=== PATIENT | male | born 1965 | race Caucasian/White ===

== ENCOUNTER → 2017-09-15 08:12 | Outpatient (CLI) | payer OTHER, SELFPAY ==
[2017-09-15 12:36] LABS: Absolute Lymphocyte Count 0.81 X10^3/ul (0.83-4.51); Absolute Neutrophil Count 2.4 X10^3/uL (2.0-7.7); Basophil# 0.04 X10^3/uL; Eosinophil# 0.08 X10^3/uL; Eosinophils% 2.1 % (0-5); Hematocrit 44.8 % (40-54); Hemoglobin 15.6 g/dl (13.0-16.5); Lymphocyte # 0.81 X10^3/ul (4.0); Lymphocyte % 20.8 % (19-41); Mean Corp Hgb Conc 34.8 g/gl (32-36); Mean Corpuscular Hgb 31.4 pg (27.0-32.0); Mean Corpuscular Volume 90.1 fL (80-94); Mean Platelet Vol. 10.7 fl (6.2-12.0); Monocyte% 15.4 % (0-10); Neutrophil # 2.36 X10^3/uL (2.7-7.7); Neutrophil % 60.7 % (47-70); Platelet Count 276 K/mm3 (150-450); RBC Distribution Width CV 12.8 % (11.6-14.6); RBC Distribution Width SD 41.7 fl (35.1-43.9); Red Blood Count 4.97 M/mm3 (4.6-6.2); White Blood Count 3.9 K/mm3 (4.4-11.0)
[2017-09-15 12:37] LABS: POSITIVE COUNT NO; POSITIVE DIFFERENTIAL NO; POSITIVE MORPHOLOGY NO
[2017-09-15 13:09] LABS: ALB/GLOB Ratio 0.9 RATIO (0.9-2.4); AST(SGOT) 30 U/L (15-37); Alanine Aminotransfer ALT/SGPT 51 U/L (16-61); Albumin, Serum 3.8 g/dL (3.2-5.0); Alkaline Phosphatase 144 U/L (45-117); Anion Gap 5 (5-15); BUN 17 mg/dL (7-18); BUN/Creat Ratio 18.6 RATIO (10-20); Calcium,Total 8.4 mg/dL (8.5-10.1); Chloride 105 mmol/L (98-107); Creatinine, Serum 0.91 mg/dL (0.70-1.30); EST Glomerular Filtration Rate 93 mL/min (>60); Est Glom Filt Rate - Afr Amer 112 mL/min (>60); Globulin 4.2 g/dL (2.2-4.2); Glucose 88 mg/dL (74-106); Potassium 4.1 mmol/L (3.5-5.1); Sodium Level 140 mmol/L (136-145); Thyroid Stim Hormone (TSH) 2.57 uIU/mL (0.358-3.74)
== END ==
PROVIDERS: Family Provider Family Medicine; PCP Family Medicine; Visit Provider Family Medicine
DX: E78.5 Hyperlipidemia, unspecified (principal); I10 Essential (primary) hypertension
CPT/HCPCS: 36415; 80053; 84443; 85025

== ENCOUNTER 2018-03-15 13:36 | Emergency (ER) | payer OTHER, SELFPAY ==
[2018-03-15 13:37] VITALS: BP 134/91; PULSE 94; RESP 18; TEMP 36; O2SAT 98; BMI 33.5
[2018-03-15 13:56] VITALS: O2SAT 94
--- NOTE | 2018-03-15 13:56 | EKG12_ITS ---
Test Reason : REPEAT Blood Pressure : / mmHG Vent. Rate : 070 BPM Atrial Rate : 070 BPM P-R Int : 148 ms QRS Dur : 142 ms QT Int : 414 ms P-R-T Axes : 049 056 005 degrees QTc Int : 447 ms Normal sinus rhythm Right bundle branch block Abnormal ECG Confirmed by KY JOAQUIN, REECE ([id number]), offline editor LUIS WOODARD ([id number]) on 03/21/2018 11:31:39 AM Referred By: NARDA Confirmed By:REECE MCPHERSON MD
--- NOTE | 2018-03-15 13:58 | ED.VISSUMM ---
- ER Visit Summary Date of Service: 03/15/18 Chief Complaint: [] Chest pain today while at work History of Present Illness: The patient is a 52 M [] he reports that while at work he began having an episode of chest pressure that lasted for about 10-15 minutes and resolve spontaneously has had this type of pain before he is been admitted for and had a stress test a few years it was negative. He has no known history of heart disease MD PE or DVT but does have history of right bundle branch block. 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, he went to work feeling fine he feels back to baseline now with no complaints Have a history of hyperlipidemia and hypertension does not smoke also has family history Physical Examination: [] Blood pressure was 130/80 general, no distress resting comfortably HEENT is generally unremarkable The neck is supple no adenopathy Cardiovascular, regular rate and rhythm Lungs, clear bilateral Abdomen, soft nontender Extremities, no clubbing cyanosis or edema Neurologic, awake alert answering questions appropriately moving all 4 extremities Test Results: [] Emergency Department Course and Treatment: [] Patient's EKG does show the right bundle there is no acute injury pattern appreciated, I did note a nuclear cardiac stress test in 2016 that showed no signs of ischemia given his complaints and all the above screening labs will be obtained The patient's laboratory studies and chest x-ray were generally unremarkable see those reports on reevaluation remains asymptomatic resting comforting the bed we discussed all the test with him we discussed further management options which would include admission versus discharge we discussed the concept of occult cardiac disease it could be lethal. The patient reported and were verbalized understanding of the above but indicate he had chest pain multiple times and they would prefer outpatient management and declined admission. They do agree to stay in the emergency department for repeat troponin and EKG if these are negative the be discharged and be referred back to primary care physician and they actually have an appointment for tomorrow and have also given them referral to cardiology, in addition he is currently taking one baby aspirin a day he will take 2 baby aspirins a day he does agree to return if symptoms change or intensified anyway I have asked the evening physicians to check the repeat troponin with the plan will be as above Treatment Plan: [] Disposition: [] Discharge patient declined admission Impression: [] Chest pain etiology unclear This note was generated with [employer] dictation software. It may contain incorrect words, spelling, and punctuation that were not noted in review of the chart prior to signing ED Disposition - Plan for ED Patient: Chief Complaint: Chest Pain Referrals: Darin Sharma MD [Primary Care Provider] -
--- NOTE | 2018-03-15 14:04 | RAD_ITS ---
STUDY: X-RAY CHEST REASON FOR EXAM: Male, 52 years old. Chest pain. TECHNIQUE: Single AP portable view of the chest. COMPARISON: Comparison is made with prior study dated January 05, 2016. FINDINGS: EKG electrodes are seen. The lungs are clear and expanded. There is no demonstrated pleural abnormality. Normal size heart. Normal mediastinum and kemar. Normal visualized pulmonary arteries. There is atherosclerotic tortuosity of the aortic arch and descending thoracic aorta. Normal visualized thoracic spine. Normal visualized ribs, clavicles, and shoulders. There is no demonstrated abnormality of the visualized soft tissue structures of the upper abdomen. RAD/Chest 1 View (Portable) IMPRESSION: No acute abnormality is seen. Electronically Signed: Castillo Perales MD at 14:44 EST Tel [phone], Service support ,
[2018-03-15] MEDS: Aspirin 81 MG TAB.CHEW 324 MG PO (14:07)
[2018-03-15 14:25] LABS: Absolute Lymphocyte Count 0.99 X10^3/ul (0.83-4.51); Absolute Neutrophil Count 2.6 X10^3/uL (2.0-7.7); Basophil# 0.02 X10^3/uL; Basophil% 0.5 % (0-1); Eosinophil# 0.07 X10^3/uL; Eosinophils% 1.7 % (0-5); Hematocrit 43.7 % (40-54); Hemoglobin 15.1 g/dl (13.0-16.5); Lymphocyte # 0.99 X10^3/ul (4.0); Lymphocyte % 23.6 % (19-41); Mean Corp Hgb Conc 34.6 g/gl (32-36); Mean Corpuscular Volume 89.7 fL (80-94); Mean Platelet Vol. 9.7 fl (6.2-12.0); Monocyte# 0.52 X10^3/uL; Monocyte% 12.4 % (0-10); Neutrophil % 61.8 % (47-70); Platelet Count 256 K/mm3 (150-450); RBC Distribution Width CV 12.4 % (11.6-14.6); RBC Distribution Width SD 40.7 fl (35.1-43.9); Red Blood Count 4.87 M/mm3 (4.6-6.2); White Blood Count 4.2 K/mm3 (4.4-11.0)
[2018-03-15 14:26] LABS: POSITIVE COUNT NO; POSITIVE DIFFERENTIAL NO; POSITIVE MORPHOLOGY NO
[2018-03-15 14:42] LABS: Anion Gap 8 (5-15); BUN 15 mg/dL (7-18); BUN/Creat Ratio 17.9 RATIO (10-20); Calcium,Total 8.2 mg/dL (8.5-10.1); Chloride 108 mmol/L (98-107); Creatinine, Serum 0.84 mg/dL (0.70-1.30); EST Glomerular Filtration Rate 102 mL/min (>60); Est Glom Filt Rate - Afr Amer 123 mL/min (>60); Glucose 141 mg/dL (74-106); Potassium 3.7 mmol/L (3.5-5.1); Sodium Level 141 mmol/L (136-145)
--- NOTE | 2018-03-15 15:16 | EKG12_ITS ---
Test Reason : CP Blood Pressure : / mmHG Vent. Rate : 085 BPM Atrial Rate : 085 BPM P-R Int : 148 ms QRS Dur : 134 ms QT Int : 394 ms P-R-T Axes : 070 088 010 degrees QTc Int : 468 ms Normal sinus rhythm Right bundle branch block Abnormal ECG Confirmed by KY JOAQUIN, REECE ([id number]), map editor LUIS WOODARD ([id number]) on 03/21/2018 11:31:54 AM Referred By: TONJA Confirmed By:REECE MCPHERSON MD
--- NOTE | 2018-03-15 15:18 | ED.DEP ---
ED Disposition - Plan for ED Patient: Chief Complaint: Chest Pain Instructions: ED Chest Pain Atypical Unkn Cause Referrals: Darin Sharma MD [Primary Care Provider] - Additional Instructions: Take 2 baby aspirin a day, see your outpatient provider tomorrow, follow-up with cardiology
[2018-03-15 16:52] VITALS: BP 151/80; PULSE 82; RESP 23; O2SAT 93
== END 2018-03-15 16:56 | disposition home or self-care (01) ==
LOC: ED 14:21
PROVIDERS: Emergency Provider Emergency Medicine; Family Provider Family Medicine; PCP Family Medicine
DX: R07.9 Chest pain, unspecified (principal); I45.10 Unspecified right bundle-branch block; I10 Essential (primary) hypertension; E78.5 Hyperlipidemia, unspecified; Z79.82 Long term (current) use of aspirin; Z79.899 Other long term (current) drug therapy; Z82.49 Family history of ischemic heart disease and other diseases of the circulatory system
CPT/HCPCS: 36415; 71045; 80048; 84484; 85025; 93005; 99285; A4216

== ENCOUNTER → 2018-03-26 09:23 | Outpatient (CLI) | payer OTHER, SELFPAY ==
[2018-03-15 13:37] VITALS: BMI 33.5
--- NOTE | 2018-03-26 09:29 | US_ITS ---
STUDY: ABDOMINAL ULTRASOUND - RIGHT UPPER QUADRANT REASON FOR VISIT: Male, 52 years old. Chest pain with meals. TECHNIQUE: Ultrasound evaluation of the right upper quadrant was performed with real-time and static burnett-scale imaging. TECHNICAL QUALITY: Examination limited by bowel gas. COMPARISON: None. FINDINGS: Liver: The liver measures 16.9 cm. There is increased echogenicity consistent with fatty infiltration. The bile ducts are within normal limits. There is hepatic color flow. The direction of portal flow is hepatopetal. There is no demonstrated mass lesion. Gallbladder: Normal distended gallbladder. The gallbladder wall measures 3 mm. There is a negative sonographic Pinto's sign. There is no pericholecystic fluid. There is biliary sludge dependent within the gallbladder. Common Bile Duct (C.B.D.): The common bile duct measures 4 mm. Pancreas: The pancreas is not visualized due to bowel gas. Right Kidney: Normal size of the right kidney. The right kidney measures 12.4 cm. Normal renal cortex. The right cortex measures 2.2 cm. There is no demonstrated renal mass or cyst. There is no right hydronephrosis. US/Abdomen Limited IMPRESSION: 1. Minimal gallbladder sludge without secondary evidence of acute cholecystitis. 2. Fatty infiltration of the liver. Electronically Signed: Nikolay Eduardo DO at 23:56 EST Tel [phone], Service support ,
== END ==
PROVIDERS: Family Provider Family Medicine; PCP Family Medicine; Referring Provider Family Medicine; Visit Provider Family Medicine
DX: R07.9 Chest pain, unspecified (principal); K76.0 Fatty (change of) liver, not elsewhere classified
CPT/HCPCS: 76705

== ENCOUNTER → 2019-10-23 08:12 | Outpatient (CLI) | payer OTHER, SELFPAY ==
[2019-10-21 16:53] VITALS: BMI 33.5
[2019-10-23 10:27] LABS: Absolute Lymphocyte Count 0.81 X10^3/uL (0.83-4.51); Absolute Neutrophil Count 2.3 X10^3/uL (2.0-7.7); Basophil# 0.04 X10^3/uL; Basophil% 1.1 % (0-1); Eosinophils% 2.6 % (0-5); Hematocrit 46.2 % (40-54); Hemoglobin 15.4 g/dL (13.0-16.5); Lymphocyte # 0.81 X10^3/ul (4.0); Lymphocyte % 21.4 % (19-41); Mean Corp Hgb Conc 33.3 g/dL (32-36); Mean Corpuscular Hgb 30.6 pg (27.0-32.0); Mean Corpuscular Volume 91.7 fL (80-94); Mean Platelet Vol. 9.8 fl (6.2-12.0); Monocyte# 0.49 X10^3/uL; NRBC Flagged by Analyzer 0 % (0-5); Neutrophil # 2.33 X10^3/uL (2.7-7.7); Neutrophil % 61.6 % (47-70); Platelet Count 278 K/mm3 (150-450); RBC Distribution Width CV 11.9 % (11.6-14.6); RBC Distribution Width SD 40.3 fl (35.1-43.9); Red Blood Count 5.04 M/mm3 (4.6-6.2); White Blood Count 3.8 K/mm3 (4.4-11.0)
[2019-10-23 10:55] LABS: ALB/GLOB Ratio 0.8 RATIO (0.9-2.4); AST(SGOT) 25 U/L (15-37); Alanine Aminotransfer ALT/SGPT 44 U/L (16-61); Albumin, Serum 3.7 g/dL (3.2-5.0); Alkaline Phosphatase 154 U/L (45-117); Anion Gap 3 (5-15); BUN 16 mg/dL (7-18); BUN/Creat Ratio 20.1 RATIO (10-20); Calcium,Total 8.5 mg/dL (8.5-10.1); Chloride 107 mmol/L (98-107); Cholesterol 109 mg/dL (200); EST Glomerular Filtration Rate 107 mL/min (>60); Est Glom Filt Rate - Afr Amer 130 mL/min (>60); Globulin 4.4 g/dL (2.2-4.2); Glucose 94 mg/dL (74-106); High Density Lipoprotein 24 mg/dL; Potassium 3.9 mmol/L (3.5-5.1); Protein, Total 8.1 g/dL (6.4-8.2); Sodium Level 138 mmol/L (136-145); Thyroid Stim Hormone (TSH) 3.73 uIU/mL (0.358-3.74); Triglycerides 84 mg/dL; Very Low Density Lipoprotein 17 mg/dL (5-40)
== END ==
PROVIDERS: PCP Family Medicine; Referring Provider Family Medicine; Visit Provider Family Medicine
DX: I10 Essential (primary) hypertension (principal); F32.1 Major depressive disorder, single episode, moderate; E78.5 Hyperlipidemia, unspecified; K76.0 Fatty (change of) liver, not elsewhere classified
CPT/HCPCS: 36415; 80053; 80061; 84443; 85025

== ENCOUNTER → 2019-12-30 | Outpatient (CLI) | payer OTHER, SELFPAY ==
[2019-12-12 10:50] VITALS: BMI 33.5
== END | disposition home or self-care (01) ==
LOC: LABSPEC 17:22
PROVIDERS: PCP Family Medicine; Referring Provider Family Medicine; Visit Provider Family Medicine
DX: Z20.828 Contact with and (suspected) exposure to other viral communicable diseases (principal)
CPT/HCPCS: 87635; 94799; U0003

== ENCOUNTER → 2020-12-07 13:02 | Outpatient (CLI) | payer OTHER, SELFPAY ==
[2020-11-20 13:15] VITALS: BMI 33.5
--- NOTE | 2020-12-07 13:03 | MRI_ITS ---
History: pain neck , left arm Technique: T1 and T2 MR imaging of the cervical spine performed without contrast enhancement in axial and sagittal planes. Comparison: Cervical spine radiographs November 05, 2020 Findings: Disc space narrowing with Modic type I endplate changes present at C6-7 level. Alignment of the cervical vertebral bodies is normal. Cervical cord is normal. Soft tissues of the neck are normal. C2-3: No disc protrusion. Normal caliber spinal canal and neural foramina. C3-4: No disc bulging. Normal caliber spinal canal. Mild narrowing of the left neural foramen related to uncinate joint hypertrophy. C4-5: Mild left central disc protrusion causing minimal impression on the thecal sac. Mild to moderate narrowing of the left neural foramen related to uncinate joint hypertrophy. C5-6: Left posterolateral disc protrusion causing narrowing of the left lateral recess and adjacent foramen no significant spinal stenosis. C6-7: Mild disc bulging without significant impression on the thecal sac. Moderate narrowing of the neural foramina related to uncinate joint hypertrophy. C7-T1: No disc protrusion. Normal caliber spinal canal and neural foramina. MRI/Spine Cervical (Routine) IMPRESSION: Neural foraminal narrowing on the left at C3-4, C4-5, C5-6 and C6-7. Prominent narrowing of the left C5-6 lateral recess secondary to left posterolateral disc protrusion. Prominent disc degeneration at the C6-7 level associated with Modic type I endplate changes. at 1705 Reported and signed by: Damien Burnett MD Electronically Signed: Damien Burnett MD at 17:04 EDT Tel , Service support ,
== END ==
PROVIDERS: PCP Family Medicine; Referring Provider Orthopaedic Surgery; Visit Provider Orthopaedic Surgery
DX: M50.20 Other cervical disc displacement, unspecified cervical region (principal); M50.323 Other cervical disc degeneration at C6-C7 level
CPT/HCPCS: 72141

== ENCOUNTER → 2020-12-30 08:53 | Outpatient (CLI) | payer OTHER, SELFPAY ==
[2020-12-09 14:54] VITALS: BMI 33.5
[2020-12-30 14:50] LABS: Absolute Lymphocyte Count 0.86 X10^3/uL (0.83-4.51); Absolute Neutrophil Count 2.9 X10^3/uL (2.0-7.7); Basophil# 0.04 X10^3/uL; Basophil% 0.9 % (0-1); Eosinophils% 2.3 % (0-5); Hematocrit 45.2 % (40-54); Lymphocyte # 0.86 X10^3/ul (0.83-4.51); Lymphocyte % 19.4 % (19-41); Mean Corp Hgb Conc 35.4 g/dL (32-36); Mean Corpuscular Volume 87.6 fL (80-94); Mean Platelet Vol. 9.2 fl (6.2-12.0); Monocyte# 0.58 X10^3/uL; Monocyte% 13.1 % (0-10); NRBC Flagged by Analyzer 0 % (0-5); Neutrophil # 2.85 X10^3/uL (2.7-7.7); Neutrophil % 64.3 % (47-70); Platelet Count 282 K/mm3 (150-450); RBC Distribution Width CV 12.4 % (11.6-14.6); RBC Distribution Width SD 39.8 fl (35.1-43.9); Red Blood Count 5.16 M/mm3 (4.6-6.2); White Blood Count 4.4 K/mm3 (4.4-11.0)
[2020-12-30 15:21] LABS: Anion Gap 5 (5-15); BUN 18 mg/dL (7-18); Calcium,Total 8.8 mg/dL (8.5-10.1); Chloride 107 mmol/L (98-107); Creatinine, Serum 0.86 mg/dL (0.70-1.30); EST Glomerular Filtration Rate 99 mL/min (>60); Est Glom Filt Rate - Afr Amer 119 mL/min (>60); Glucose 96 mg/dL (74-106); Potassium 3.7 mmol/L (3.5-5.1); Sodium Level 138 mmol/L (136-145)
[2020-12-30 15:22] LABS: Magnesium 2.1 mg/dL (1.6-2.6)
--- NOTE | 2020-12-31 09:13 | EKG12_ITS ---
Test Reason : PRE OP Blood Pressure : / mmHG Vent. Rate : 069 BPM Atrial Rate : 069 BPM P-R Int : 146 ms QRS Dur : 130 ms QT Int : 402 ms P-R-T Axes : 042 076 032 degrees QTc Int : 430 ms Normal sinus rhythm Right bundle branch block Abnormal ECG Confirmed by MARILU JOAQUIN, PROSPER ([id number]), assistant film editor SARAH TAYLOR ([id number]) on 12/31/2020 9:15:39 AM Referred By: Dharmesh Bonilla Confirmed By:PROSPER MICHEL MD
[2020-12-31 10:05] LABS: HIV - WCH Non-Reactive (Nonreactive); Hepatitis B Surface Antibody Non-Reactive; Hepatitis C Antibody Non-Reactive (Nonreactive)
[2021-01-01 08:32] LABS: Hepatitis A AB, Total Negative (Negative)
--- NOTE | 2021-01-11 08:59 | PCM.HP.BLA ---
History and Physical Date of Admission: 01/12/21 [facility] [id number] [phone] OFFICE VISITDate of Service: 11/20/20 MR#:[id number]:[id number]: ANSHU WOODARDRep #:[id number]:1965 Provider:Dr. Dharmesh Bonilla DOAge/Sex: 55/M Location:Bobby:Signed Intake Vital Signs 11/20/20 13:15 11/20/20 13:29 Height 6 ft 2 in BMI 33.5 Intake Visit Reasons: CERVICAL SPINE Chief Complaint: Neck, Left Shoulder pain Is patient in pain?: Yes Pain scale (1-10): 8 Allergies No Known Allergies Allergy (Verified 11/20/20 13:26) Medications amlodipine 5 mg PO DAILY 01/05/16 [History Confirmed 11/20/20] losartan 100 mg PO DAILY 01/05/16 [History Confirmed 11/20/20] paroxetine HCl 40 mg PO DAILY 01/05/16 [History Confirmed 11/20/20] atorvastatin 40 mg PO DAILY #0 01/06/16 [Rx Confirmed 11/20/20] aspirin 81 mg PO DAILY@0800 03/15/18 [History Confirmed 11/20/20] cholecalciferol (vitamin D3) 1,000 unit PO DAILY 03/15/18 [History Confirmed 11/20/20] PFSH Medical History (Updated 11/20/20 @ 14:[address] Dharmesh Bonilla, ) Benign essential HTN Bilateral headaches Environmental allergies Hypertension Scoliosis Segmental and somatic dysfunction of pelvic region Surgical History No pertinent past surgical history Family History Other Arthritis Cancer Heart disease Hypertension Social History Smoking Status: Former smoker alcohol intake: current alcohol intake frequency: 0-2 drinks per day substance use type: does not use what type of physical activity do you participate in: none HPI CERVICAL SPINE Details: Parts of this documentation were recorded by a scribe, this documentation accurately reflects the service provided and the decisions made by me, Dr. Dharmesh Bonilla, DO 11/20/20 8484. ANSHU WOODARD is a 55 year old M here today for cervical spine pain. 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 Patient has not received relief for his cervical spine from her. Patient was referred from to be seen for his C6 and C7 narrowness Patient states he has pain down his left arm but no numbness/tingling. Patient states he has numbness/tingling in his left finger tips for about 4-6 weeks constantly. Patient states his neck is sore/stiff in the upper shoulder/neck region just on the left side. Patient has not received any other kind of care for his neck pain except . Patient denies any popping or cling in his neck or left shoulder. Anshu is a most pleasant 55-year-old that has a chief complaint of pain mainly on the left side of his neck that radiates down the left arm in a classic C7 dermatome. This started about 6 weeks ago. It was fairly insidious in onset. The pain is no worse and no better than it was when it started. He denies any bowel or bladder dysfunction. He states that when the pain is bad it is an 8/10 in severity when it is good it is still a 3 or 4 in severity. Activity makes it worse. He has never had this kind of pain in the past. On examination he has a positive Spurling's to the left side. He has weakness of the left triceps as compared to the right. He also has some atrophy of the left triceps as compared to the right. The other muscles are all good in strength bilaterally. He has a decreased triceps on the left almost absent and 2+ on the right. He has 2+ brachioradialis and biceps reflexes bilaterally. He has no long tract signs. Clonus is absent Babinski's are downgoing. Review of plain x-rays of his cervical spine demonstrate that he has a significantly decreased disc space at C6-7. The impression is that of soft disc versus hard disc disease C6-7. We will order an MRI scan of the cervical spine. I will see him after the MRI scan and make further recommendations. Note that we are not recommending any conservative methods such as physical therapy for the simple reason that he has a significant neurological deficit. Coding Level of Care Code Off vis,new,level 3 Diagnoses Neck pain on left side M54.2 HNP (herniated nucleus pulposus), cervical M50.20 Time Spent (min) 30 Assessment and Plan Assessment and Plan (1) Neck pain on left side: Status: Acute Orders: Orders: Spine Cervical W/WO Contrast Today (2) HNP (herniated nucleus pulposus), cervical:
== END ==
PROVIDERS: Anesthesiology; PCP Family Medicine; Referring Provider Orthopaedic Surgery; Visit Provider Orthopaedic Surgery
DX: Z01.810 Encounter for preprocedural cardiovascular examination (principal); Z01.812 Encounter for preprocedural laboratory examination; M50.20 Other cervical disc displacement, unspecified cervical region; I10 Essential (primary) hypertension; Z87.891 Personal history of nicotine dependence
CPT/HCPCS: 36415; 80048; 83735; 85025; 86703; 86706; 86708; 86803; 87077; 87081; 87426; 93005; C9803

== ENCOUNTER 2021-02-03 11:32 | Observation (INO) | payer OTHER, SELFPAY ==
--- NOTE | 2021-02-02 16:16 | PCM.HP.BLA ---
History and Physical Date of Admission: 02/03/21 [facility] [id number] [phone] OFFICE VISITDate of Service: 11/20/20 MR#:[id number]:[id number]: ANSHU WOODARDRep #:[id number]:[id number] Provider:Dr. Dharmesh Bonilla DOAge/Sex: 55/M Location:Bobby:Signed Intake Vital Signs 11/20/20 13:15 11/20/20 13:29 Height 6 ft 2 in BMI 33.5 Intake Visit Reasons: CERVICAL SPINE Chief Complaint: Neck, Left Shoulder pain Is patient in pain?: Yes Pain scale (1-10): 8 Allergies No Known Allergies Allergy (Verified 11/20/20 13:26) Medications amlodipine 5 mg PO DAILY 01/05/16 [History Confirmed 11/20/20] losartan 100 mg PO DAILY 01/05/16 [History Confirmed 11/20/20] paroxetine HCl 40 mg PO DAILY 01/05/16 [History Confirmed 11/20/20] atorvastatin 40 mg PO DAILY #0 01/06/16 [Rx Confirmed 11/20/20] aspirin 81 mg PO DAILY@0800 03/15/18 [History Confirmed 11/20/20] cholecalciferol (vitamin D3) 1,000 unit PO DAILY 03/15/18 [History Confirmed 11/20/20] PFSH Medical History (Updated 11/20/20 @ 14:[address] Dharmesh Bonilla, ) Benign essential HTN Bilateral headaches Environmental allergies Hypertension Scoliosis Segmental and somatic dysfunction of pelvic region Surgical History No pertinent past surgical history Family History Other Arthritis Cancer Heart disease Hypertension Social History Smoking Status: Former smoker alcohol intake: current alcohol intake frequency: 0-2 drinks per day substance use type: does not use what type of physical activity do you participate in: none HPI CERVICAL SPINE Details: Parts of this documentation were recorded by a scribe, this documentation accurately reflects the service provided and the decisions made by me, Dr. Dharmesh Bonilla, DO 11/20/20 2384. ANSHU WOODARD is a 55 year old M here today for cervical spine pain. 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 Patient has not received relief for his cervical spine from her. Patient was referred from to be seen for his C6 and C7 narrowness Patient states he has pain down his left arm but no numbness/tingling. Patient states he has numbness/tingling in his left finger tips for about 4-6 weeks constantly. Patient states his neck is sore/stiff in the upper shoulder/neck region just on the left side. Patient has not received any other kind of care for his neck pain except . Patient denies any popping or cling in his neck or left shoulder. Anshu is a most pleasant 55-year-old that has a chief complaint of pain mainly on the left side of his neck that radiates down the left arm in a classic C7 dermatome. This started about 6 weeks ago. It was fairly insidious in onset. The pain is no worse and no better than it was when it started. He denies any bowel or bladder dysfunction. He states that when the pain is bad it is an 8/10 in severity when it is good it is still a 3 or 4 in severity. Activity makes it worse. He has never had this kind of pain in the past. On examination he has a positive Spurling's to the left side. He has weakness of the left triceps as compared to the right. He also has some atrophy of the left triceps as compared to the right. The other muscles are all good in strength bilaterally. He has a decreased triceps on the left almost absent and 2+ on the right. He has 2+ brachioradialis and biceps reflexes bilaterally. He has no long tract signs. Clonus is absent Babinski's are downgoing. Review of plain x-rays of his cervical spine demonstrate that he has a significantly decreased disc space at C6-7. The impression is that of soft disc versus hard disc disease C6-7. We will order an MRI scan of the cervical spine. I will see him after the MRI scan and make further recommendations. Note that we are not recommending any conservative methods such as physical therapy for the simple reason that he has a significant neurological deficit. Coding Level of Care Code Off vis,new,level 3 Diagnoses Neck pain on left side M54.2 HNP (herniated nucleus pulposus), cervical M50.20 Time Spent (min) 30 Assessment and Plan Assessment and Plan (1) Neck pain on left side: Status: Acute Orders: Orders: Spine Cervical W/WO Contrast Today (2) HNP (herniated nucleus pulposus), cervical
[2021-02-03] VITALS (28 sets, daily range): BP systolic 118–150; BP diastolic 84–102; PULSE 67–100; RESP 16–18; TEMP 36.3–37.7; O2SAT 18–99; BMI 30.9
--- NOTE | 2021-02-03 | DISC_PTH ---
PATIENT: SALEEM WOODARD LOC: MS2 U#:[id number] AGE/SX: 55/M ROOM: [facility] RE02/03/[address]: Dr. Meagan Persaud MD : 1965 BED: 1 DIS: 02/04/2021 SPEC #: [id number] RECD: 02/03/21 13:41 STATUS: APRIL REQ #: [id number] DIANNE: 02/03/21 00:[address]: Dharmesh Bonilla DEPT: SURGICAL PATHOLOGY RECD BY: Pedrito Noriega ENTERED: 02/04/21 08:54 SP TYPE: DISC OTHR DR: Dr. Karrie Carrillo, DO Dr. Dharmesh Bonilla, MD Dr. Darin Rosario Dr., MD Tissues: Intervertebral disc, NOS Procedures: Decalcification bone/plaque Surgery Specimen Level III Comments: @ Ordering doctor for SUIII edited from to @ by TESSY at 02/04/21 1455 @ Submitting doctor edited from to @ by REBECAOD at 02/04/21 1455 HEADER OPERATION: ERAS, left anterior cervical fusion, C5-6, C6-7 PRE-OP DIAGNOSIS: Neck pain on left side; herniated nucleus pulposus, cervical TISSUE SUBMITTED: Cervical disc C5-6, C6-7 MICROSCOPIC DIAGNOSIS Cervical disc C5-6, C6-7, discectomy: Fragments of intervertebral disc with degenerative change. Bone and bone marrow with trilineage hematopoiesis. AM:oral 02/08/2021 MICROSCOPIC DESCRIPTION Slides are reviewed. GROSS DESCRIPTION Received in fixative is one container labeled with the patient's name and designated cervical disc C5-6, C6-7. The specimen consists of multiple fragments of montano, indurated tissue that in aggregate measure 5 x 4 x 1.5 cm. Crushing Machine Operator sections are submitted in two cassettes after decalcification. / SJ:oral 02/04/21 TC:5 CPT: 20133, 78928
[2021-02-03] MEDS: Acetaminophen 500 MG Tablet 1000 MG PO (05:30)
[2021-02-03] MEDS: dexAMETHasone 10 MG/ML Vial 8 MG IV (06:26)
[2021-02-03] MEDS: Lactated Ringers 1,000 ML 100 ML IV ×4 (07:24→22:14)
[2021-02-03 07:30] LABS: Bedside Glucose 131 mg/dL (70-110)
--- NOTE | 2021-02-03 07:30 | RAD_ITS ---
History: Surgical fusion Cervical spine, single lateral view: Findings: Lateral radiograph of the cervical spine obtained in the OR for localization purposes. Radiographic marker is noted that the C6-7 level. Orotracheal tube is in place. IMPRESSION: As above. at 0922 Reported and signed by: Damien Burnett MD Electronically Signed: Damien Burnett MD at 9:21 EDT Tel , Service support , RAD/Spine 1 View Any Level
[2021-02-03] MEDS: Heparin 10,000 UNITS/10 ML Vial 10000 UNITS (07:50)
[2021-02-03] MEDS: Cefazolin 2 GM in 0.9% Normal Saline 100 ML IV (08:25)
--- NOTE | 2021-02-03 09:00 | RAD_ITS ---
History: Surgical fusion Cervical spine, single lateral view: Findings: Lateral view of the cervical spine obtained in the OR for localization purposes. Radiographic marker at the C5-6 interspace. Orotracheal tube in place. IMPRESSION: As above. at 1010 Reported and signed by: Damien Burnett MD Electronically Signed: Damien Burnett MD at 10:09 EDT Tel , Service support , RAD/Spine 1 View Any Level
--- NOTE | 2021-02-03 09:07 | RAD_ITS ---
History: Surgical fusion Cervical spine, single lateral view: Findings: Single lateral view of the cervical spine obtained in the OR demonstrates radiographic marker at the C6-7 level. Orotracheal tube in place. IMPRESSION: As above. at 1041 Reported and signed by: Damien Burnett MD Electronically Signed: Damien Burnett MD at 10:40 EDT Tel , Service support , RAD/Spine 1 View Any Level
[2021-02-03] MEDS: THROMBIN (RECOMBINANT) 20,000 UNIT VIAL 20000 UNIT TOPICAL (09:59)
--- NOTE | 2021-02-03 11:00 | RAD_ITS ---
EXAM: XR CERVICAL SPINE, 1 VIEW : 1965 CLINICAL INDICATION: C5-6, C6-7 FUSION TECHNIQUE: Lateral view of the cervical spine. This report was created using [employer] report generation technology. COMPARISON: 02/03/2021 at 0856 hours FINDINGS: VERTEBRAE: Unremarkable. Preserved vertebral body height. No acute fracture. No spondylolisthesis. Preservation of the normal cervical lordosis. No significant facet arthropathy. DISC SPACES: There is now hardware from an anterior fusion sending from C5-C7. There are interbody disc spaces at C5-6 and C6/7. SOFT TISSUES: Unremarkable. No prevertebral soft tissue widening. LUNG APICES: Clear. TUBES, LINES AND DEVICES: Endotracheal tube is in place. RAD/Spine 1 View Any Level IMPRESSION: Anterior fusion of C5-C7. Hardware is in good position. at 1758 Reported and signed by: Rigo Marin MD Electronically Signed: Rigo Marin MD at 17:57 EDT Tel , Service support ,
--- NOTE | 2021-02-03 11:41 | PCM.OPRPT ---
Report of Operation Description of Surgical Findings:: Preoperative diagnosis: #1 hard disc disease C6-7 with left C7 radiculopathy #2 herniated disc with uncinate hypertrophy C5-6 with left C6 radiculopathy Postoperative diagnosis: The same Procedures: #1 anterior cervical fusion C6-7 CPT code 47756 #2 application of anterior spine plate C5-C7 CPT code 10963/59 #3 anterior cervical fusion C5-6 CPT code 71701/51 #4 insertion of cage C6-7 CPT code 21316 #5 insertion of cage C5-6 CPT code 44550/51 Surgeon: Dr. Bonilla assistant men's lacrosse coach: Andrés BOWERS Anesthesia: General endotracheal anesthesia administered by [facility] EBL: 20 cc Drains: 1/4 inch Lopez Complications: None Procedure: Patient was taken to the OR where he was placed in supine position on the operating table. He was then put placed under general endotracheal anesthesia. A Shelley catheter was inserted. Neuro monitoring placed all their leads and the patient. A Kerlix was bound around 1 wrist around the feet and to the other wrist for purposes of pulling down his shoulders. A roll was then placed under his shoulders to gently extend his neck. The right crest area and the neck was then prepped and draped in standard fashion. I then made a transverse incision in line with longer's lines starting just past the midline to the left and curving into the right to the edge of the right sternocleidomastoid muscle. Subcutaneous tissues were incised the length of the skin incision. I then undermined the subcutaneous tissues off of the platysma in both cephalad and caudad direction. Then cauterized the platysma near its medial border and split it with tissue scissors in either direction. This gave us access to the superficial cervical fascia. This was then exploited muscle using blunt dissection note that I identified the carotid pulse and protected it throughout the procedure. I then exploited the pretracheal fascia in the same fashion. This way I was able to retract the midline structures that is the trachea and esophagus to the left the carotid to the right exposing the anterior cervical fascia and identified the levels thought to be C5-6 and C6-7 these were each marked and x-ray was taken to assure that we were indeed at C6-7 before I remove the needle I marked a hole in the anterior annulus using cautery. I then cauterized the longus coli muscles on either side and gently elevated them off the disc space at C6-7. The belt sander stone retractors were then put in place giving us good exposure. I then cut the anterior annulus with a 15 blade and removed it and removed more disc from within the disc space with pituitary rongeurs. Using a stas bur I cut the anterior osteophytes off. Maneuvered into vertebral body distractor was then put on the right side thus exposing most of the space to the left. Using a stas bur I was able to bur the uncinate process down to a very thin shell and remove the shell with small curettes. This completely decompressed the C7 nerve root on the left side. This was checked with a nerve hook was found to be quite open. I then removed remaining cartilage off both endplates using the curettes. Addition I had to flatten the space a little bit with the bur opening both sides. I then took her measurements for the cage. Decided to use a large cage 8 mm high. Note that is 7 degrees angled 14 deep and 16-1/2 mm wide. Note that in the meantime we placed a Jamshidi needle into the right iliac crest after first punching a hole through the skin and malleting the needle into the crest. About 50 cc of bone marrow aspirate was obtained this was handed off to the cook chill technician in the room. We then spun it down and the stem cells from the rest of the cells and gave us back to concentrated stem cells that were concentrated perhaps 8-10 times. I then filled the middle of the cage with spongy demineralized bone matrix and soaked in the patient's own stem cells. This was then tamped in place and countersunk 2 to 3 mm. Following this we removed our instrumentation and moved the instrumentation up first using Cloward retractors to expose the space its C5-6 and cauterizing the coli muscles on either side. I then gently elevated them with a small kessler elevator on each side and again we put the same belt sander stone retractors in place. Good access to C5-6. Using the 15 blade I then remove the anterior annulus at C5-6. More nucleus was then removed with the pituitary rongeurs all the way back to the near the posterior longitudinal ligament. I used curettes to remove the cartilage off both endplates using the stas bur I then opened the base of the foraminotomy as the uncinate process at the back on the left side and open at that space. I removed a disc from within the base of the nerve root. This completely decompressed the left C6 nerve root. We then took her measurements for a cage. Measured out a 9 mm high 7 degree 14 mm deep 16-1/2 mm wide cage. The space was then burred using a broach roughen up both endplates as we did with the level below. Once this was done we then loaded the cage again with spongy DBM that was soaked in the patient's own stem cells. We then tamped it into place and countersunk it about 2 to 3 mm. A 51 mm long plate was then put anteriorly rocked just a little so I use the plate alvarez to bend it slightly make it a perfect fit. Once centered I locked it down with 1 holding pin then used an awl to punch the first hole onto the right side at C6. Then entered with a 16mm screw. We then put screws into C5 on both sides the same way first with an awl then entering with the 16mm screw we then removed the pin enlarged the hole with an awl and put one there also at C6. Lastly the 2 C7 screws were put in place in the same fashion. Note that this patient had a lot of esophageal swelling. This was enough to make me a keep him overnight for observation and to give him more steroids. This will help the swelling. Addition he was not doing as well as anticipated in recovery. Thus we will keep him overnight for observation purposes. Following this we closed the platysma running fashion with 5-0 Vicryl followed by closure of subcutaneous tissues with 5-0 Vicryl in interrupted fashion skin was approximated using 4-0 nylon. Note that we did leave a leave the 1/[address] We then placed sterile dressings over this. This is the end of operative summary on Anshu Hobbs. This is Dr. Bonilla dictating.
--- NOTE | 2021-02-03 15:17 | SUR.PHASEI ---
Patient arrived to PACU and after awaking because anxious and tearful. Asking for his late father. After treating for pain and anxiety, patient finally is sleeping comfortably.
[2021-02-03] MEDS: Cefazolin 1 GM/50 ML BAG IV (17:28)
--- NOTE | 2021-02-03 19:03 | PCS.PANDOC ---
PANDEMIC DOCUMENTATION INITIATED: Date: 02/03/2021 Time: 190
--- NOTE | 2021-02-03 20:15 | PCM.PN.HOSP ---
Documented by User: REBECCA Woodard 02/03/21 20:27 Subjective Subjective Patient seen and examined. Patient lying in bed no distress noted. Patient states that he is feeling sore and groggy following surgery however he has no other complaints at this time. Dressing to his anterior neck is dry and intact Objective Data Objective Data Vital Signs: Vital Signs Temp Pulse Resp BP Pulse Ox 97.5 F L 91 18 136/95 H 91 02/03/21 18:00 02/03/21 18:00 02/03/21 18:00 02/03/21 18:00 02/03/21 18:00 Oxygen Flow Rate (L/min) 2 Oxygen Delivery Method Nasal Cannula Weight: 240 lb 15.444 oz Body Mass Index (BMI) 30.9 Intake & Output: Intake and Output for Last 24 Hours 02/01/21 02/02/21 02/03/21 23:59 23:59 23:59 Intake Total 2266.5 / 2266.5 Output Total 1750 / 1750 Balance 516.5 / 516.5 Lab / Micro Data Labs: Laboratory Results - last 24 hr 02/03/21 05:58: POC Glucose 131 H Micro: Microbiology 02/02/21 08:50 Interface Orders SARS-CoV-2 Antigen (Rapid) - Final Radiography Diagnostic Testing: Radiology Impression Spine X-Ray 02/03/21 07:30 Spine X-Ray 02/03/21 09:00 Spine X-Ray 02/03/21 09:07 Spine X-Ray 02/03/21 11:00 IMPRESSION: Anterior fusion of C5-C7. Hardware is in good position. at 1758 Reported and signed by: Rigo Marin MD Electronically Signed: Rigo Marin MD at 17:57 EDT Tel , Service support , Physical Exam Const alert, oriented x3 and no apparent distress HEENT head/scalp atraumatic Head and Scalp: normocephalic Eyes conjunctivae normal Neck supple General: trachea midline Resp normal respiratory effort, normal air movement, no use of accessory muscles and clear to auscultation bilaterally Cardio regular rate, regular rhythm, S1 normal heart sound and S2 normal heart sound GI normal to inspection, nondistended, normoactive bowel sounds, soft to palpation and non-tender Extremity normal to inspection, full ROM and no clubbing, cyanosis or edema Peripheral Pulses: Yes pulses 2+ throughout Skin no rashes or lesions noted Skin Narrative: Dressing to anterior neck dry and intact. Neuro oriented x3, moves all extremities, no focal motor deficits and no sensory deficits noted Sensorium / Orientation: awake and alert Speech: Negative for speech normal Psych mental status grossly normal, thought process normal, cooperative and affect normal Assessment & Plan Assessment/Plan (1) HNP (herniated nucleus pulposus), cervical: PLAN: 1. Anterior cervical fusion C5-C6 and C6-C7 with cage insertion and spine plate placement -Operative day 02/03/2021 -Pain management ordered per Ortho surgeon -Neurovascular checks as ordered 2. Hyperlipidemia -Continue atorvastatin -CBC and BMP ordered 3. Hypertension -Continue losartan and Norvasc -Vital signs per protocol. -Vital signs currently stable DVT prophylaxis-SCDs This patient was seen by Heather Anderson NP-C under the supervision of Dr. Carrillo. Documented by User: Dr. Karrie Carrillo DO 02/03/21 21:32 Subjective Subjective This patient was seen in conjunction with Heather Anderson NP. The following is representation my independent history and physical examination. Please see below for addendum the above. Mr. Hobbs is a 55-year-old white male who presented to Dr. Hobbs's office with pain down his left arm but no tingling or numbness initially that progressed to tingling and numbness in his left fingertips that was persistent for approximately 4 to 6 weeks on a consistent basis. He complained of stiff and sore neck as well as left upper shoulder pain on the left side as well. He had undergone chiropractic therapy with no discernible improvement. Plain films of the cervical spine show decreased disc space at C6-C7 and an MRI was ordered that showed neuroforaminal narrowing on the left at C3-4, C4-C5, C5-6, and C6-7 with prominent narrowing at the left C5-C6 lateral recess secondary to posterior lateral disc protrusion as well as prominent disc degeneration at C6-C7. He presented for elective cervical spine fusion on 02/03/2021. His intervention included an anterior cervical fusion at C5-6 C7, application of an anterior spine plate at C5-C7, anterior cervical fusion at C5-C6 with cage insertion at C6-C7 and C5-C6. We were asked to follow postoperatively for medical issues. Physical Exam Const Constitutional Narrative: Middle-aged white male lying in bed sleeping but awakens easily, appears comfortable and nontoxic Exam Limitations: no limitations Nutritional Appearance: overweight HEENT head/scalp atraumatic and moist oral mucous membranes Head and Scalp: normocephalic Neck supple Neck Narrative: Postoperative surgical dressing over anterior neck with no drainage on dressing Resp normal respiratory effort, no retractions, no use of accessory muscles and clear to auscultation bilaterally Cardio regular rate, regular rhythm, S1 normal heart sound, S2 normal heart sound, no murmurs, no rub, no gallops, no clicks and no JVD GI normal to inspection, nondistended, normoactive bowel sounds, soft to palpation, non-tender and non-distended Extremity no clubbing, cyanosis or edema Peripheral Pulses: Yes pulses 2+ throughout Neuro moves all extremities and no focal motor deficits Neuro Narrative: Sleeping but awakens easily and ANO x3 Speech: speech normal Assessment & Plan Assessment/Plan (1) HNP (herniated nucleus pulposus), cervical: PLAN: Assessment: HNP C5-C6 and C6-C7 status post anterior cervical fusion with cage insertion and plate placement Hyperlipidemia Hypertension History of tobacco abuse Headaches Depression Plan: Pain management and DVT prophylaxis as per primary Neurovascular checks ordered per primary Maintain Shelley until patient is able to get out of bed or using urinal Continue home losartan, Norvasc, and atorvastatin Continue paroxetine Patient uses Excedrin as needed for headaches We will check a.m. CBC and CMP Charges/Coding Visit Charges Office Visits / Consults: 22263 OV L2 Est
[2021-02-03] MEDS: Atorvastatin Calcium 40 MG Tablet PO (22:10)
[2021-02-03] MEDS: oxyCODONE 5 MG Tablet PO (22:12)
[2021-02-04] MEDS: Cefazolin 1 GM/50 ML BAG IV (00:51)
[2021-02-04] MEDS: dexAMETHasone 4 MG/ML Vial 2 MG IV ×3 (00:52→11:12)
[2021-02-04] MEDS: 0.9% Saline Lock 10 ML Syringe IV ×2 (00:53→05:46)
[2021-02-04 02:00] VITALS: BP 128/79; PULSE 98; RESP 18; TEMP 36.6; O2SAT 96
[2021-02-04] MEDS: oxyCODONE 5 MG Tablet PO ×2 (02:34→08:07)
[2021-02-04 05:36] LABS: Absolute Lymphocyte Count 0.55 X10^3/uL (0.83-4.51); Absolute Neutrophil Count 11.6 X10^3/uL (2.0-7.7); Basophil# 0.02 X10^3/uL; Basophil% 0.2 % (0-1); Hematocrit 41.7 % (40-54); Hemoglobin 14.3 g/dL (13.0-16.5); Lymphocyte # 0.55 X10^3/ul (0.83-4.51); Lymphocyte % 4.3 % (19-41); Mean Corp Hgb Conc 34.3 g/dL (32-36); Mean Corpuscular Hgb 30.7 pg (27.0-32.0); Mean Corpuscular Volume 89.5 fL (80-94); Mean Platelet Vol. 9.3 fl (6.2-12.0); Monocyte# 0.65 X10^3/uL; NRBC Flagged by Analyzer 0 % (0-5); Neutrophil # 11.63 X10^3/uL (2.7-7.7); Neutrophil % 90.1 % (47-70); POSITIVE DIFFERENTIAL YES; Platelet Count 274 K/mm3 (150-450); RBC Distribution Width CV 12.2 % (11.6-14.6); Red Blood Count 4.66 M/mm3 (4.6-6.2); White Blood Count 12.9 K/mm3 (4.4-11.0)
[2021-02-04 05:48] LABS: Differential Indicated SCAN CRITERIA MET
[2021-02-04] MEDS: Lactated Ringers 1,000 ML 100 ML IV (05:48)
[2021-02-04 06:00] VITALS: BP 123/87; PULSE 97; RESP 16; TEMP 36.5; O2SAT 96
[2021-02-04 06:23] LABS: Anion Gap 5 (5-15); BUN 13 mg/dL (7-18); BUN/Creat Ratio 14.3 RATIO (10-20); Calcium,Total 8.8 mg/dL (8.5-10.1); Chloride 102 mmol/L (98-107); Creatinine, Serum 0.91 mg/dL (0.70-1.30); EST Glomerular Filtration Rate 92 mL/min (>60); Est Glom Filt Rate - Afr Amer 111 mL/min (>60); Estimated Creatinine Clearance 106.64 ml/min; Glucose 120 mg/dL (74-106); Potassium 4.3 mmol/L (3.5-5.1); Sodium Level 136 mmol/L (136-145)
[2021-02-04 07:19] LABS: Differential Comment SCANNED
--- NOTE | 2021-02-04 07:46 | PN.HOSP_ITS ---
Subjective Subjective Patient seen and examined. He feels well and has no complaint. Pain is well controlled. REview of systems otherwise negative. Today is POD 1. Objective Data Objective Data Vital Signs: Vital Signs Temp Pulse Resp BP Pulse Ox 97.7 F L 97 16 123/87 H 96 02/04/21 06:00 02/04/21 06:00 02/04/21 06:00 02/04/21 06:00 02/04/21 06:00 Oxygen Flow Rate (L/min) 2 Oxygen Delivery Method Nasal Cannula Weight: 240 lb 15.444 oz Body Mass Index (BMI) 30.9 Intake & Output: Intake and Output for Last 24 Hours 02/02/21 02/03/21 02/04/21 23:59 23:59 23:59 Intake Total 3064.83 / 3304.83 1166.67 / 1166.67 Output Total 1750 / 3100 2450 / 2450 Balance 1314.83 / 204.83 -1283.33 / -1283.33 Lab / Micro Data Result Diagrams: 02/04/21 04:58 02/04/21 04:58 Labs: Laboratory Results - last 24 hr 02/04/21 04:58: WBC 12.9 H, RBC 4.66, Hgb 14.3, Hct 41.7, MCV 89.5, MCH 30.7, MCHC 34.3, RDW Std Deviation 40.0, RDW Coeff of Adolfo 12.2, Plt Count 274, MPV 9.3, Immature Gran % (Auto) 0.400, Neut % (Auto) 90.1 H, Lymph % (Auto) 4.3 L, Cedar % (Auto) 5.0, Eos % (Auto) 0.0, Baso % (Auto) 0.2, Absolute Neuts (auto) 11.6 H, Absolute Lymphs (auto) 0.55 L, Nucleated RBC % 0, Differential Comment SCANNED 02/04/21 04:58: Sodium 136, Potassium 4.3, Chloride 102, Carbon Dioxide 29.0, Anion Gap 5, BUN 13, Creatinine 0.91, Estim Creat Clear Calc 106.64, Est GFR (MDRD) Af Amer 111, Est GFR (MDRD) Non-Af 92, BUN/Creatinine Ratio 14.3, Glucose 120 H, Calcium 8.8 Micro: Microbiology 02/02/21 08:50 Interface Orders SARS-CoV-2 Antigen (Rapid) - Final Radiography Diagnostic Testing: Radiology Impression Spine X-Ray 02/03/21 07:30 Spine X-Ray 02/03/21 09:00 Spine X-Ray 02/03/21 09:07 Spine X-Ray 02/03/21 11:00 IMPRESSION: Anterior fusion of C5-C7. Hardware is in good position. at 1758 Reported and signed by: Rigo Marin MD Electronically Signed: Rigo Marin MD at 17:57 EDT Tel , Service support , Physical Exam Const alert, oriented x3 and no apparent distress Exam Limitations: no limitations Nutritional Appearance: overweight HEENT head/scalp atraumatic and moist oral mucous membranes Head and Scalp: normocephalic Eyes PERRL, EOMs intact bilaterally and conjunctivae normal Neck Neck Narrative: Postoperative surgical dressing over anterior neck with no drainage on dressing General: trachea midline Resp normal respiratory effort, normal air movement, no retractions, no use of accessory muscles and clear to auscultation bilaterally Cardio regular rate, regular rhythm, S1 normal heart sound, S2 normal heart sound, no murmurs, no rub, no gallops, no clicks and no JVD GI normal to inspection, nondistended, normoactive bowel sounds, soft to palpation, non-tender and non-distended Extremity normal to inspection, full ROM and no clubbing, cyanosis or edema Peripheral Pulses: Yes pulses 2+ throughout Skin no rashes or lesions noted Skin Narrative: Dressing to anterior neck dry and intact. Neuro oriented x3, moves all extremities, no focal motor deficits and no sensory deficits noted Sensorium / Orientation: awake and alert Speech: speech normal Psych mental status grossly normal, thought process normal, cooperative and affect normal Assessment & Plan Assessment/Plan (1) HNP (herniated nucleus pulposus), cervical: PLAN: #Anterior cervical fusion of C5-6 and C6-C7 * spine surgery on board. * pain mangement as per primary team * PT/OT on board. * Incentive spirometry * on IV decadron per primary * #Hyperlipidemia: on statin #Hypertension: on losartan and norvasc. DVT prophylaxis: SCDs. Charges/Coding Visit Charges Inpatient E&M: 89373 Subs Hosp L2
[2021-02-04 07:58] VITALS: BP 131/79; PULSE 88; RESP 16; TEMP 36.5; O2SAT 97
[2021-02-04] MEDS: amLODIPine 5 MG Tablet PO (08:03)
[2021-02-04] MEDS: Losartan Potassium 100 MG Tablet PO (08:03)
[2021-02-04] MEDS: Paroxetine 20 MG Tablet 40 MG PO (08:04)
[2021-02-04] MEDS: Ensure Surgery 237 ML LIQUID PO (11:41)
--- NOTE | 2021-02-04 11:45 | DS.PCM_ITS ---
Providers Date of Admission: 02/03/21 Primary Care Physician: Dr. Darin Sharma MD Consultations 02/03/21 12:13 Consult: Hospitalist Routine Consulting Provider: Karrie Carrillo Reason for Consult: med management EMERGENT Consult: No MD Notified: Yes Date Notified: 02/03/21 Time Notified: 19:45 Method of Notification: Text Reason For Visit: eras, anterior cervical fusion c5-6, c6-7 Diagnosis Discharge Diagnosis (1) HNP (herniated nucleus pulposus), cervical: Status: Acute Code(s): M50.20 - Other cervical disc displacement, unspecified cervical region Medications at Discharge Home Medications losartan 100 mg PO DAILY 01/05/16 atorvastatin 40 mg PO DAILY #0 01/06/16 amlodipine 5 mg tablet 5 mg PO DAILY 12/09/20 paroxetine HCl 40 mg tablet 40 mg PO DAILY 12/09/20 acetaminophen-caffeine [Excedrin Tension Headache] 2 tab PO Q6H PRN 12/29/20 ibuprofen 400 mg PO Q6H PRN 12/29/20 Hospital Course Summary of Care Provided Hospital Course: Anshu Hobbs was admitted yesterday February 03, 2021. Upon admission he underwent anterior cervical discectomy and interbody fusion at the C6-7 and C5-6 levels. He tolerated the procedure well. On rounds today the dressing was changed and the drain was removed. Incision is healing well. Neurologically he is intact. His voice is clear. He does not have a Yeni syndrome. He relates that he is pain down the left arm and the numbness in his left arm are completely resolved. He was given postop protocol regarding anterior cervical fusions. He was told to remove the dressing on Monday and that he can start showering on Monday. We changed the day to see him in the office to a week from tomorrow. His pain medication is already at home. I answered all his questions. He is discharged. Weight / BMI Weight Weight: 240 lb 15.444 oz Body Mass Index (BMI) 30.9 ABG / Lab / Microbiology Data Result Diagrams: 02/04/21 04:58 02/04/21 04:58 Laboratory: Laboratory Results - last 24 hr 02/04/21 04:58: WBC 12.9 H, RBC 4.66, Hgb 14.3, Hct 41.7, MCV 89.5, MCH 30.7, MCHC 34.3, RDW Std Deviation 40.0, RDW Coeff of Adolfo 12.2, Plt Count 274, MPV 9.3, Immature Gran % (Auto) 0.400, Neut % (Auto) 90.1 H, Lymph % (Auto) 4.3 L, Mclennan % (Auto) 5.0, Eos % (Auto) 0.0, Baso % (Auto) 0.2, Absolute Neuts (auto) 11.6 H, Absolute Lymphs (auto) 0.55 L, Nucleated RBC % 0, Differential Comment SCANNED 02/04/21 04:58: Sodium 136, Potassium 4.3, Chloride 102, Carbon Dioxide 29.0, Anion Gap 5, BUN 13, Creatinine 0.91, Estim Creat Clear Calc 106.64, Est GFR (MDRD) Af Amer 111, Est GFR (MDRD) Non-Af 92, BUN/Creatinine Ratio 14.3, Glucose 120 H, Calcium 8.8 Microbiology: Microbiology 02/02/21 08:50 Interface Orders SARS-CoV-2 Antigen (Rapid) - Final Radiography Diagnostic Testing: Radiology Impression Spine X-Ray 02/03/21 11:00 IMPRESSION: Anterior fusion of C5-C7. Hardware is in good position. at 1758 Reported and signed by: Rigo Marin MD Electronically Signed: Rigo Marin MD at 17:57 EDT Tel , Service support , Meaningful Use Info Meaningful Use Diagnoses (Choose all that apply): None applicable Discharge Plan Admission Admit Date/Time: 02/03/21 11:32 Primary Reason for Your Visit: surgery Attending Provider: Meagan Persaud Primary Care Provider: Darin Sharma Consulting Providers: Karrie Carrillo Discharge Orders/Prescriptions Prescriptions: No Action losartan 100 MG tablet 100 mg PO DAILY RF: 0 atorvastatin 20 MG tablet 40 mg PO DAILY Qty: 0 RF: 0 paroxetine HCl 40 mg tablet 40 mg PO DAILY RF: 0 amlodipine 5 mg tablet 5 mg PO DAILY RF: 0 Excedrin Tension Headache 500-65 mg Tablet 2 tab PO Q6H PRN (Reason: Pain) RF: 0 ibuprofen 200 mg Capsule 400 mg PO Q6H PRN (Reason: Pain) RF: 0 Referrals / Follow Up: Darin Sharma MD [Primary Care Provider] - Disposition Disposition (needs filled in before D/C Order can be placed): Home, Self Care
--- NOTE | 2021-02-04 12:05 | CASEMGMT ---
RN MAXWELL CLEANER AND PRESSER CM to room to meet with patient for initial transition planning/care coordination assessment. RN MAXWELL introduced self and role at [facility]. Pt voices understanding and consents to assessment at this time. Pt sitting up in chair in room in no distress at this time. @ bedside, visiting. Pt is A/O at this time and answers all questions appropriately. also provided info/gave details. Care providers, pharmacy, and demographics verified/updated at this time. PCP: Dr Sharma Specialists: Dr Colón Preferred Pharmacy: [facility] retail Insurance:MMO Prescription Benefit: Yes Living Will/HPOA: Has both LW and HPOA, who is his , Yojana LNOK: , Yojana Living Arrangements:Lives w/his , Yojana, in 2-story home. No difficulty w/stairs. Independent. able to help as needed. Transportation: pt, DME: Denies using any DME and denies needs. Has a CPAP, but does not use. HHC/SNF:No hx of either. No needs identified. Pt wishes to return home and states has no concerns with going home at time of discharge. CM to follow for any discharge planning/needs. Pt/ voice no concerns/needs at this time. PLAN: Home w/spousal support and discharge plans in place. Charles CARDONA RN, CM
[2021-02-04 13:25] VITALS: BP 133/73; PULSE 92; RESP 16; TEMP 36.9; O2SAT 94
== END 2021-02-04 13:42 | disposition home or self-care (01) ==
LOC: MS2 02-04 07:15
PROVIDERS: Nurse Practitioner Family; Admitting Provider Student in an Organized Health Care Education/Training Program; PCP Family Medicine; Referring Provider Orthopaedic Surgery; Visit Provider Student in an Organized Health Care Education/Training Program
PROC: (CPT 22551; principal; 2021-02-03 07:00)
DX: M50.222 Other cervical disc displacement at C5-C6 level (principal); I10 Essential (primary) hypertension; M99.05 Segmental and somatic dysfunction of pelvic region; M41.9 Scoliosis, unspecified; R20.0 Anesthesia of skin; G47.30 Sleep apnea, unspecified; M99.01 Segmental and somatic dysfunction of cervical region; M99.03 Segmental and somatic dysfunction of lumbar region; M99.02 Segmental and somatic dysfunction of thoracic region; R20.2 Paresthesia of skin; R22.1 Localized swelling, mass and lump, neck; E78.5 Hyperlipidemia, unspecified; Z79.82 Long term (current) use of aspirin; Z79.899 Other long term (current) drug therapy; Z87.891 Personal history of nicotine dependence
CPT/HCPCS: 22551; 22552; 22845; 22853; 36415; 72020; 80048; 82962; 85025; 87426; 88304; 88311; 96361; 96365; 96366; 96375; 96376; 99218; 99251; C1713; C9803; J7120; A4216; G0378; G0463; J2405

== ENCOUNTER → 2021-03-24 09:03 | Outpatient (CLI) | payer OTHER, SELFPAY ==
--- NOTE | 2021-03-24 09:09 | CT_ITS ---
STUDY: CT BRAIN WITHOUT CONTRAST REASON FOR EXAM: Male, 55 years old. R/O BLEED/SEVERE BRAY/MED CHANGES RADIATION DOSAGE (If Supplied By Facility): CTDIvol = ( 44.99 ) mGy, DLP = ( 796.11 ) mGycm TECHNIQUE: Transaxial CT imaging of the brain was performed without administration of intravenous contrast material. Individualized dose optimization techniques were used for this CT. COMPARISON: No relevant priors. FINDINGS: Normal size ventricles and extra-axial spaces for the patient''s age. Normal white matter tracts of the cerebral hemispheres. There is no intracranial hemorrhage. There are no findings of an acute ischemic infarction. Normal visualized paranasal sinuses. CT/Brain/Head without Contrast IMPRESSION: There is no intracranial hemorrhage. Electronically Signed: Dominic House MD at 10:22 EST Tel , Service support ,
== END ==
PROVIDERS: PCP Family Medicine; Referring Provider Family Medicine; Visit Provider Family Medicine
DX: R51.9 Headache, unspecified (principal); R42 Dizziness and giddiness; I10 Essential (primary) hypertension
CPT/HCPCS: 70450

== ENCOUNTER 2021-05-06 11:34 | Observation (INO) | payer OTHER, SELFPAY ==
[2021-05-06] VITALS (11 sets, daily range): BP systolic 89–141; BP diastolic 60–85; PULSE 77–98; RESP 12–22; TEMP 36.2–37; O2SAT 94–100; BMI 29.7; BMI 27.3
--- NOTE | 2021-05-06 11:55 | EKG12_ITS ---
Test Reason : JUAN Blood Pressure : / mmHG Vent. Rate : 092 BPM Atrial Rate : 092 BPM P-R Int : 148 ms QRS Dur : 138 ms QT Int : 396 ms P-R-T Axes : 064 078 031 degrees QTc Int : 489 ms Normal sinus rhythm Right bundle branch block Abnormal ECG Confirmed by MARILU JOAQUIN, PROSPER ([id number]), supervising film or videotape editor MAC GARDNER ([id number]) on 05/10/2021 10:15:28 AM Referred By: DAFNE Confirmed By:PROSPER MICHEL MD
--- NOTE | 2021-05-06 11:55 | CT_ITS ---
STUDY: CT BRAIN WITHOUT CONTRAST REASON FOR EXAM: Male, 55 years old. Syncope, head injury RADIATION DOSAGE (If Supplied By Facility): CTDIvol = ( 44.99 ) mGy, DLP = ( 796.11 ) mGycm TECHNIQUE: Transaxial CT imaging of the brain was performed without administration of intravenous contrast material. Individualized dose optimization techniques were used for this CT. COMPARISON: Comparison is made with prior study dated 03/24/2021. FINDINGS: Normal soft tissue structures. Normal calvarium. Normal size ventricles and extra-axial spaces for the patient''s age. Normal white matter tracts of the cerebral hemispheres. Normal basal ganglia and thalami. Normal brainstem. Normal cerebellum. There is no intracranial hemorrhage. There are no findings of an acute ischemic infarction. Atherosclerotic calcification of the cavernous portions of the internal carotid arteries as well as the vertebral arteries. Partial opacification of the ethmoid sinuses as well as a small air-fluid level in the left maxillary sinus. CT/Brain/Head without Contrast IMPRESSION: Mucosal thickening of the ethmoid sinuses with small air-fluid level in the left maxillary sinus. No acute intracranial abnormality is seen. Electronically Signed: Castillo Perales MD at 13:42 EST , Service support ,
--- NOTE | 2021-05-06 11:56 | EX.ED.DYSGE1 ---
HPI History of Present Illness Chief Complaint: Back Detail of Chief Complaint: Syncope and back injury Informant: patient Narrative Narrative: Patient presents to the emergency department with a syncopal episode while in the shower today. Patient states that he remembers feeling lightheaded and dizzy and then passing out. Patient states that he hit his back on the spigot and now complaining of back pain. Patient also on his way to the hospital got results of his COVID test from 2 days ago and it was positive. Patient had symptoms for 5 days. Complains of a cough and headache. Patient also states that he has been having episodes of passing out over the last 2 weeks and has passed out 3 times. He denies any chest pain. He denies recent travel or surgery. He denies any neck pain currently. He denies abdominal pain. Prior similar symptoms: Yes PFSH PFSH Medical History Alcohol use Anxiety Arthritis Benign essential HTN Bilateral headaches CPAP (continuous positive airway pressure) dependence Environmental allergies History of steroid therapy History of stress test Hypertension Injury of back Scoliosis Segmental and somatic dysfunction of pelvic region Sleep apnea Wears glasses Wears hearing aid Home Medications losartan 100 mg PO DAILY 01/05/16 [History Last Taken 02/03/21] atorvastatin 40 mg PO DAILY #0 01/06/16 [Rx Last Taken 01/04/16] amlodipine 5 mg tablet 5 mg PO DAILY 12/09/20 [History Last Taken 02/03/21] paroxetine HCl 40 mg tablet 40 mg PO DAILY 12/09/20 [History Last Taken Unknown] acetaminophen-caffeine [Excedrin Tension Headache] 2 tab PO Q6H PRN 12/29/20 [History Last Taken Unknown] ibuprofen 400 mg PO Q6H PRN 12/29/20 [History Last Taken Unknown] Allergy/AdvReac Type Severity Reaction Status Date / Time sugammadex AdvReac Severe Low blood Verified 05/06/21 11:39 pressure Family History Other Arthritis Cancer Heart disease Hypertension Surgical History No pertinent past surgical history Social History Smoking Status: Former smoker alcohol intake: current alcohol intake frequency: 0-2 drinks per day substance use type: does not use what type of physical activity do you participate in: none ROS ROS ED ROS Narrative Syncope Constitutional Constitutional ED: Reports systems reviewed and no addt'l complaints, except as documented; Denies body ache(s), change in weight or chills Eyes Eyes: Denies acute decrease in peripheral vision, change in vision, double vision or loss of vision ENT ENT ED: Reports none; Denies ear pain, lip swelling, loss taste/smell, neck pain, otalgia or sore throat Cardiovascular Cardiovascular: Reports none; Denies abdominal pain, chest pain with activity, leg edema, lightheadedness, palpitations, rapid heart rate or syncope Respiratory/Chest Respiratory/Chest: Reports none; Denies change in mental status, dry cough, dyspnea, hemoptysis, shortness of breath at rest or shortness of breath with exertion Gastrointestinal Gastrointestinal: Reports none; Denies abdominal pain, change in stool character, diarrhea, hematemesis, hematochezia, melena, rectal bleeding or vomiting Genitourinary Genitourinary ED: Reports none; Denies abdominal discomfort, anuria, dysuria, genital pain or polyuria Musculoskeletal Musculoskeletal: Reports none, back pain and myalgias; Denies arthralgias, difficulty walking, extremity pain or muscle weakness Integumentary Reports none; Denies abscess or rash Neurologic Neurologic: Reports none and headache(s); Denies abnormal gait, confusion, focal weakness, frequent falls, loss of vision, numbness, paresthesias, radicular pain, vertigo or weakness Psychiatric Psychiatric: Reports systems reviewed and no addt'l complaints, except as documented and none; Denies behavioral changes, confusion, difficulty concentrating, hallucinations, suicidal ideation, tactile hallucinations or visual hallucinations Endocrine Endocrinology: Denies none, cold intolerance, excessive sweating, fatigue or heat intolerance Hematologic/Lymphatic Hematologic/Lymphatic: Reports none; Denies anemia, easy bleeding or easy bruising Allergic/Immunologic Allergic/Immunologic ED: Denies as per HPI, none, lip swelling, mouth swelling, throat swelling, tongue swelling or hives EXAM Physical Exam Const Vital Signs: 05/06/21 11:36 Temperature 97.2 F L Temperature Source Temporal Pulse Rate 97 Respiratory Rate 16 Blood Pressure 89/60 L Blood Pressure Mean 69 Pulse Ox 94 Oxygen Delivery Method Room Air Positive well nourished and well developed General Appearance ED: well developed and NAD HEENT Reports TM's clear and moist mucous membranes normocephalic and atraumatic; Negative for trauma or tenderness Tympanic Membrane ED: Yes TM's clear Eyes PERRL and EOMs intact bilaterally General Eye ED: Negative for pale conjunctiva or scleral icterus Neck no lymphadenopathy, supple and no JVD General: Negative for tenderness Chest Wall inspection of chest normal and palpation of chest normal Chest: Negative for tenderness Resp normal respiratory effort and clear to auscultation bilaterally Effort and Inspection: Negative for respiratory distress or pain with movement Auscultation: Negative for rhonchi, wheezes or diminished lung sounds Cardio regular rate, regular rhythm, S1 normal heart sound, S2 normal heart sound and no murmurs Peripheral Pulses: pulses 2+ throughout GI normal to inspection, nondistended, normoactive bowel sounds, soft to palpation, non-tender, non-distended and no masses Back/Spine no CVA tenderness and no thoracic nor lumbar tenderness Back/Spine Narrative: Linear abrasion to left flank with tenderness palpation over the left lower ribs. Extremity normal to inspection General Extremety ED: Negative for edema General Extremity: Negative for edema Neuro oriented x3, CN's II-XII intact bilaterally, no sensory deficits noted and gait normal Sensorium / Orientation: awake, alert, oriented to person, oriented to place and oriented to time Motor Exam: strength 5/5 throughout and strength abnormal Psych mental status grossly normal Skin no rashes or lesions noted and no wounds MDM MDM MDM Narrative Medical decision making narrative: IV line established on arrival. Patient was ordered a liter normal same fluid bolus and his blood pressure did seem to respond to that. Orthostatic vital signs were ordered and are pending. CT scan of the brain was unremarkable. CT of the chest was negative for PE. Patient advised of all his findings. At this point etiology of his syncope is not totally clear as he is had 3 or 4 episodes in the last several weeks. I suspect possibly vasovagal episode today. Patient is concerned about going home and having a repeat episode. Case will be discussed with hospitalist evaluate for admission for syncope Lab Data Attestation: I reviewed the patient's lab results. Labs: Laboratory Results - last 24 hr 05/06/21 05/06/21 05/06/21 12:35 12:35 12:35 WBC 7.9 RBC 5.00 Hgb 15.1 Hct 43.3 MCV 86.6 MCH 30.2 MCHC 34.9 RDW Std Deviation 39.2 RDW Coeff of Adolfo 12.4 Plt Count 233 MPV 9.4 Immature Gran % (Auto) 0.300 Neut % (Auto) 79.6 H Lymph % (Auto) 7.9 L [place] % (Auto) 11.8 H Eos % (Auto) 0.0 Baso % (Auto) 0.4 Absolute Neuts (auto) 6.3 Absolute Lymphs (auto) 0.62 L Nucleated RBC % 0 D-Dimer Quant (PE/DVT) 0.81 H* Sodium 135 L Potassium 3.3 L Chloride 102 Carbon Dioxide 25.0 Anion Gap 8 BUN 19 H Creatinine 1.11 Estim Creat Clear Calc 87.42 Est GFR (MDRD) Af Amer 88 Est GFR (MDRD) Non-Af 73 BUN/Creatinine Ratio 17.1 Glucose 106 Calcium 8.6 Troponin I High Sens 6 Radiography Diagnostic Testing: Clinical Impression(s) from Imaging Studies Brain CT 05/06/21 11:55 IMPRESSION: Mucosal thickening of the ethmoid sinuses with small air-fluid level in the left maxillary sinus. No acute intracranial abnormality is seen. Electronically Signed: Castillo Perales MD at 13:42 EST , Service support , Chest CTA 05/06/21 13:09 IMPRESSION: No evidence of pulmonary embolism. Bilateral enlargement of the hilar lymph nodes as well as mediastinal lymph nodes. 5.2 mm noncalcified nodule in the medial anterior aspect of the left lower lobe abutting the cardiac border. Electronically Signed: Castillo Perales MD at 13:40 EST , Service support , EKG Initial EKG: Attestation: I personally reviewed and interpreted this EKG as follows: Comments: Sinus rhythm with a rate of 92 bpm with a right bundle branch block. Prior EKG tracings: available for review Prior: Unchanged Discharge Plan Triage Chief Complaint: Back ED Provider: Meghan Garcia Dx/Rx/DC Orders Clinical Impression: Syncope, Contusion of back, COVID-19 Prescriptions: No Action losartan 100 MG tablet 100 mg PO DAILY RF: 0 atorvastatin 20 MG tablet 40 mg PO DAILY Qty: 0 RF: 0 paroxetine HCl 40 mg tablet 40 mg PO DAILY RF: 0 amlodipine 5 mg tablet 5 mg PO DAILY RF: 0 Excedrin Tension Headache 500-65 mg Tablet 2 tab PO Q6H PRN (Reason: Pain) RF: 0 ibuprofen 200 mg Capsule 400 mg PO Q6H PRN (Reason: Pain) RF: 0 Primary Care Provider: Darin Sharma Referrals: Darin Sharma MD [Primary Care Provider] - Disposition Disposition: Acute Care Hospital [facility]
[2021-05-06] MEDS: 0.9% Normal Saline 1,000 ML 1000 ML IV (12:35)
[2021-05-06 12:46] LABS: Absolute Lymphocyte Count 0.62 X10^3/uL (0.83-4.51); Absolute Neutrophil Count 6.3 X10^3/uL (2.0-7.7); Basophil# 0.03 X10^3/uL; Basophil% 0.4 % (0-1); Hematocrit 43.3 % (40-54); Hemoglobin 15.1 g/dL (13.0-16.5); Lymphocyte # 0.62 X10^3/ul (0.83-4.51); Lymphocyte % 7.9 % (19-41); Mean Corp Hgb Conc 34.9 g/dL (32-36); Mean Corpuscular Hgb 30.2 pg (27.0-32.0); Mean Corpuscular Volume 86.6 fL (80-94); Mean Platelet Vol. 9.4 fl (6.2-12.0); Monocyte# 0.93 X10^3/uL; Monocyte% 11.8 % (0-10); NRBC Flagged by Analyzer 0 % (0-5); Neutrophil # 6.28 X10^3/uL (2.7-7.7); Neutrophil % 79.6 % (47-70); Platelet Count 233 K/mm3 (150-450); RBC Distribution Width CV 12.4 % (11.6-14.6); RBC Distribution Width SD 39.2 fl (35.1-43.9); White Blood Count 7.9 K/mm3 (4.4-11.0)
[2021-05-06 13:04] LABS: Anion Gap 8 (5-15); BUN 19 mg/dL (7-18); BUN/Creat Ratio 17.1 RATIO (10-20); Calcium,Total 8.6 mg/dL (8.5-10.1); Chloride 102 mmol/L (98-107); Creatinine, Serum 1.11 mg/dL (0.70-1.30); EST Glomerular Filtration Rate 73 mL/min (>60); Est Glom Filt Rate - Afr Amer 88 mL/min (>60); Estimated Creatinine Clearance 87.42 ml/min; Glucose 106 mg/dL (74-106); Potassium 3.3 mmol/L (3.5-5.1); Sodium Level 135 mmol/L (136-145); Troponin-I HS 6 pg/mL (3.0-78.0)
[2021-05-06 13:07] LABS: D-Dimer Quantitative (DVT/PE) 0.81 FEU/ug/m (0.27-0.49)
--- NOTE | 2021-05-06 13:09 | CT_ITS ---
STUDY: CTA CHEST REASON FOR EXAM: Male, 55 years old. Elevated d-dimer. Covid positive. RADIATION DOSAGE (If Supplied By Facility): CTDIvol = ( 13.58 ) mGy, DLP = ( 461.11 ) mGycm TECHNIQUE: The examination was performed with the intravenous administration of IV 100mL Isovue-370. Post-processing of the angiographic images was performed, with multiplanar reformation and 3D reconstruction. Individualized dose optimization techniques were used for this CT. COMPARISON: None. FINDINGS: Normal enhancement of the main pulmonary artery and right and left pulmonary arteries. Normal enhancement of the bilateral peripheral pulmonary arteries. There is no demonstrated pulmonary embolism. Normal thoracic aorta and visualized great vessels. There is no demonstrated aortic dissection. There are calcifications of the coronary arteries. There is enlargement of the bilateral hilar lymph nodes as well as the subcutaneous carinal lymph nodes. Prominence of the mediastinal lymph nodes in the region of the aortopulmonary window. Normal visualized trachea and bronchi. The lungs are well expanded. There is a 5.2 mm noncalcified nodule in the medial aspect of the left lower lobe abutting the cardiac shadow as seen on axial image #59. Normal pleura. Normal chest wall structures. There are degenerative changes of thoracic spine. Normal visualized upper abdomen. CT/CTA Chest W/WO Contrast IMPRESSION: No evidence of pulmonary embolism. Bilateral enlargement of the hilar lymph nodes as well as mediastinal lymph nodes. 5.2 mm noncalcified nodule in the medial anterior aspect of the left lower lobe abutting the cardiac border. Electronically Signed: Castillo Perales MD at 13:40 EST , Service support ,
--- NOTE | 2021-05-06 14:28 | HP.PCM.HOS_ITS ---
HPI - General HPI Narrative SALEEM WOODARD, is a 55 M who presents with a syncopal episode. Patient was in the shower and then felt woozy and then passed out falling backwards hitting the bathtub faucet on his way down. Patient over the past 5 days has been feeling sick with fevers chills malaise. He was recently tested positive for COVID-19. Patient has been having any single episodes for months well before he had COVID- 19. Patient was vaccinated for COVID-19 on the [employer] in January. Patient had a CT angiogram of the chest that was unremarkable. Patient was hypotensive when he came in here and did receive IV fluids and blood pressure is better. He did have orthostatics performed today when he stood up he was feeling dizzy. [facility] Medical History Alcohol use Anxiety Arthritis Benign essential HTN Bilateral headaches CPAP (continuous positive airway pressure) dependence Environmental allergies History of steroid therapy History of stress test Hypertension Injury of back Scoliosis Segmental and somatic dysfunction of pelvic region Sleep apnea Wears glasses Wears hearing aid Home Medications losartan 100 mg PO DAILY 01/05/16 [History Last Taken 02/03/21] atorvastatin 40 mg PO DAILY #0 01/06/16 [Rx Last Taken 01/04/16] amlodipine 5 mg tablet 5 mg PO DAILY 12/09/20 [History Last Taken 02/03/21] paroxetine HCl 40 mg tablet 40 mg PO DAILY 12/09/20 [History Last Taken Unknown] ascorbic acid (vitamin C) [Vitamin C] 500 mg PO BID 05/06/21 [History Last Taken Unknown] cholecalciferol (vitamin D3) [Vitamin D3] 50 mcg PO DAILY 05/06/21 [History Last Taken Unknown] zinc 50 mg PO DAILY 05/06/21 [History Last Taken Unknown] Allergy/AdvReac Type Severity Reaction Status Date / Time sugammadex AdvReac Severe Low blood Verified 05/06/21 11:39 pressure Family History Other Arthritis Cancer Heart disease Hypertension Surgical History No pertinent past surgical history Social History Smoking Status: Former smoker alcohol intake: current alcohol intake frequency: 0-2 drinks per day substance use type: does not use what type of physical activity do you participate in: none ROS ROS Narrative All review of systems were negative except as mentioned above in the history of present illness and the other review of systems. No loss of smell or taste decreased appetite however over the past few days. Vital Signs Vital Signs Vital Signs: 05/06/21 11:36 05/06/21 14:04 05/06/21 14:09 Temperature 36.2 C L Temperature Source Temporal Pulse Rate 97 77 91 Pulse Rate [Lying] 77 Pulse Rate [Sitting] 83 Pulse Rate [Standing] 92 Respiratory Rate 16 14 22 H Respiratory Effort Respiratory Pattern Blood Pressure 89/60 L 123/75 H 113/70 Blood Pressure [Lying] 123/75 H Blood Pressure [Sitting] 123/74 H Blood Pressure [Standing] 113/70 Blood Pressure Mean 69 91 84 Blood Pressure Mean [Lying] 91 Blood Pressure Mean [Sitting] 90 Blood Pressure Mean [Standing] 84 Pulse Ox 94 98 94 Oxygen Delivery Method Room Air Room Air Room Air 05/06/21 14:11 05/06/21 14:17 Temperature 36.6 C Temperature Source Temporal Pulse Rate 98 Pulse Rate [Lying] Pulse Rate [Sitting] Pulse Rate [Standing] Respiratory Rate 17 Respiratory Effort Normal Non-Labored Respiratory Pattern Tachypnea Blood Pressure 113/70 Blood Pressure [Lying] Blood Pressure [Sitting] Blood Pressure [Standing] Blood Pressure Mean 84 Blood Pressure Mean [Lying] Blood Pressure Mean [Sitting] Blood Pressure Mean [Standing] Pulse Ox 94 Oxygen Delivery Method Room Air Weight Weight: 105 kg Body Mass Index (BMI) 29.7 Physical Exam Const alert General Appearance: cooperative Eyes EOMs intact bilaterally Eyes Narrative: Bilateral lateral nystagmus with reproducible dizziness. Resp normal respiratory effort, no retractions and no use of accessory muscles Cardio regular rate, regular rhythm, S1 normal heart sound and S2 normal heart sound GI normal to inspection, nondistended, normoactive bowel sounds, soft to palpation, non-tender and non-distended Extremity normal to inspection Skin no rashes or lesions noted Neuro Sensorium / Orientation: awake and alert Psych affect normal Results Lab / Micro Data Attestation: I reviewed the patient's lab results. Result Diagrams: 05/06/21 12:35 05/06/21 12:35 Labs: Laboratory Results - last 24 hr 05/06/21 12:35: WBC 7.9, RBC 5.00, Hgb 15.1, Hct 43.3, MCV 86.6, MCH 30.2, MCHC 34.9, RDW Std Deviation 39.2, RDW Coeff of Adolfo 12.4, Plt Count 233, MPV 9.4, Immature Gran % (Auto) 0.300, Neut % (Auto) 79.6 H, Lymph % (Auto) 7.9 L, [place] % (Auto) 11.8 H, Eos % (Auto) 0.0, Baso % (Auto) 0.4, Absolute Neuts (auto) 6.3, Absolute Lymphs (auto) 0.62 L, Nucleated RBC % 0 05/06/21 12:35: D-Dimer Quant (PE/DVT) 0.81 H* 05/06/21 12:35: Sodium 135 L, Potassium 3.3 L, Chloride 102, Carbon Dioxide 25.0, Anion Gap 8, BUN 19 H, Creatinine 1.11, Estim Creat Clear Calc 87.42, Est GFR (MDRD) Af Amer 88, Est GFR (MDRD) Non-Af 73, BUN/Creatinine Ratio 17.1, Glucose 106, Calcium 8.6, Troponin I High Sens 6 EKG Initial EKG: Attestation: I personally reviewed and interpreted this EKG as follows: Prior EKG tracings: available for review EKG Rhythm Intrepretation: Sinus Rhythm (Right bundle branch block. This was present based on echocardiogram from December 30, 2020.) Radiology Impression Brain CT 05/06/21 11:55 IMPRESSION: Mucosal thickening of the ethmoid sinuses with small air-fluid level in the left maxillary sinus. No acute intracranial abnormality is seen. Electronically Signed: Castillo Perales MD at 13:42 EST , Service support , Chest CTA 05/06/21 13:09 IMPRESSION: No evidence of pulmonary embolism. Bilateral enlargement of the hilar lymph nodes as well as mediastinal lymph nodes. 5.2 mm noncalcified nodule in the medial anterior aspect of the left lower lobe abutting the cardiac border. Electronically Signed: Castillo Perales MD at 13:40 EST , Service support , Assessment & Plan Assessment/Plan (1) Syncope: QUALIFIERS: Syncope type: unspecified Qualified Code(s): R55 - Syncope and collapse (2) COVID-19: PLAN: 1. Syncope Could be orthostatic versus vasovagal Etiologies could be orthostasis as patient has been on blood pressure medications which have not been decreased versus benign paroxysmal positional vertigo Patient was symptomatic upon standing with orthostats but orthostats were not really significant As needed meclizine Patient does have a right bundle branch block but this is not new so we will check an echocardiogram Hold his antihypertensives and give additional fluids. Recheck orthostats in the morning. 2. COVID-19 Onset was May 01. Patient is not hypoxic so he will need to quarantine through 05/10 Not a candidate for any inpatient treatment including steroids and remdesivir as he is not hypoxic. Patient has no inflammatory changes on his CT Patient has been vaccinated with the [employer] back in January. Patient advised to receive his booster next 1 to 2 weeks after he is convalesced from this current bout of COVID-19. 3. VTE prophylaxis: Not indicated given observation status. Charges/Coding Visit Charges OBSV E&M: 09530 Initial observation care L2
--- NOTE | 2021-05-06 14:42 | NURSING ---
pcu obs jopperi syncope
--- NOTE | 2021-05-06 17:46 | ECHOD_ITS ---
Reason For Study: Syncope/Near Syncope Procedure This was a 2D Doppler, Color Flow transthoracic echocardiogram. The study was technically difficult. Exam performed portable in patient room. The exam was abbreviated due to the COVID 19 protocol. Left Ventricle Normal left ventricle. The estimated ejection fraction is 55-60 %. Right Ventricle Normal right ventricle. Normal systolic function. Atria Normal left atrium. The right atrium is mildly enlarged. Mitral Valve The mitral valve is structurally normal. No prolapse or stenosis seen. Tricuspid Valve Normal tricuspid valve. Aortic Valve Normal aortic valve. Pulmonic Valve The pulmonic valve is not well visualized. Great Vessels Normal aortic root. Pericardium/Pleural No pericardial effusion. MMode/2D Measurements & Calculations LVIDd: 4.0 cm IVSd: 1.0 cm LA dimension: 3.2 cm LVIDs: 2.6 cm LVPWd: 0.92 cm FS: 33.8 % LAV(MOD-bp): 29.2 ml LA A4 area: 15.0 cm2 LAV(MOD-bp) Indexed: 13.1 ml/m2 LAV(MOD-sp2): 23.3 ml LAV(MOD-sp4): 37.3 ml Time Measurements MV dec time: 0.25 sec Doppler Measurements & Calculations MV E max momo: 87.5 cm/sec Lat Peak E' Momo: 9.4 cm/sec Med Peak E' Momo: 9.8 cm/sec MV A max momo: 90.6 cm/sec E/E' lat: 9.3 E/E' med: 8.9 MV E/A: 0.97 MV V2 max: 93.4 cm/sec MV P1/2t max momo: 93.4 cm/sec MV max P.5 mmHg MV P1/2t: 86.3 msec MV V2 mean: 51.6 cm/sec MV dec slope: 317.0 cm/sec2 MV mean P.3 mmHg MVA(P1/2t): 2.5 cm2 MV V2 VTI: 24.5 cm ECHO/Echo Complete Interpretation Summary The estimated ejection fraction is 55-60 %. Normal LV systolic function No prior echo to compare Ordering Physician: Gael Chaves Referring Physician: Darin Sharma Performed By: Solo Correa RCS
[2021-05-06] MEDS: 0.9% Normal Saline 1,000 ML 150 ML IV (19:01)
[2021-05-07] VITALS (11 sets, daily range): BP systolic 101–154; BP diastolic 71–86; PULSE 69–99; RESP 18; TEMP 36.8–37.2; O2SAT 96–98
[2021-05-07 06:11] LABS: Anion Gap 7 (5-15); BUN 15 mg/dL (7-18); BUN/Creat Ratio 17.7 RATIO (10-20); Calcium,Total 8.1 mg/dL (8.5-10.1); Chloride 106 mmol/L (98-107); Creatinine, Serum 0.85 mg/dL (0.70-1.30); EST Glomerular Filtration Rate 100 mL/min (>60); Est Glom Filt Rate - Afr Amer 121 mL/min (>60); Estimated Creatinine Clearance 114.17 ml/min; Glucose 96 mg/dL (74-106); Magnesium 2.4 mg/dL (1.6-2.6); Potassium 3.3 mmol/L (3.5-5.1); Sodium Level 138 mmol/L (136-145); Thyroid Stim Hormone (TSH) 1.49 uIU/mL (0.358-3.74)
[2021-05-07] MEDS: Ascorbic Acid 500 MG Tablet PO ×2 (10:09→16:40)
[2021-05-07] MEDS: Paroxetine 20 MG Tablet 40 MG PO (10:09)
[2021-05-07] MEDS: Atorvastatin Calcium 40 MG Tablet PO (10:09)
[2021-05-07] MEDS: Potassium Chloride Oral Tablet 20 MEQ 40 MEQ PO (10:09)
[2021-05-07] MEDS: 0.9% Saline Lock 10 ML Syringe IV (11:24)
--- NOTE | 2021-05-07 13:09 | PN.HOSP_ITS ---
Documented by User: Boo PONCE 05/07/21 13:19 Subjective Subjective Patient is a 55-year-old male comfortably resting in bed, alert and orient x3. Patient still reports feeling weak and reports a productive cough. Denies development of any new symptoms overnight. Does not appear in acute distress. Objective Data Objective Data Vital Signs: Vital Signs Temp Pulse Resp BP Pulse Ox 98.2 F 85 18 119/86 H 96 05/07/21 09:15 05/07/21 11:00 05/07/21 09:15 05/07/21 09:15 05/07/21 09:15 Oxygen Delivery Method Room Air Weight: 213 lb 5 oz Body Mass Index (BMI) 27.3 Intake & Output: Intake and Output for Last 24 Hours 05/05/21 05/06/21 05/07/21 23:59 23:59 23:59 Intake Total 1600 / 1600 1740 / 1740 Output Total 700 / 700 Balance 1600 / 1600 1040 / 1040 Lab / Micro Data Result Diagrams: 05/06/21 12:35 05/07/21 05:02 Labs: Laboratory Results - last 24 hr 05/07/21 05:02: Sodium 138, Potassium 3.3 L, Chloride 106, Carbon Dioxide 25.0, Anion Gap 7, BUN 15, Creatinine 0.85, Estim Creat Clear Calc 114.17, Est GFR (MDRD) Af Amer 121, Est GFR (MDRD) Non-Af 100, BUN/Creatinine Ratio 17.7, Glucose 96, Calcium 8.1 L, Magnesium 2.4, TSH 1.49 Radiography Diagnostic Testing: Radiology Impression Brain CT 05/06/21 11:55 IMPRESSION: Mucosal thickening of the ethmoid sinuses with small air-fluid level in the left maxillary sinus. No acute intracranial abnormality is seen. Electronically Signed: Castillo Perales MD at 13:42 EST , Service support , Chest CTA 05/06/21 13:09 IMPRESSION: No evidence of pulmonary embolism. Bilateral enlargement of the hilar lymph nodes as well as mediastinal lymph nodes. 5.2 mm noncalcified nodule in the medial anterior aspect of the left lower lobe abutting the cardiac border. Electronically Signed: Castillo Perales MD at 13:40 EST , Service support , Echocardiogram 05/06/21 17:46 Interpretation Summary The estimated ejection fraction is 55-60 %. Normal LV systolic function No prior echo to compare Ordering Physician: Gael Chaves Referring Physician: Darin Sharma Performed By: Solo Correa RCS Physical Exam Const alert, oriented x3 and no apparent distress HEENT head/scalp atraumatic and moist oral mucous membranes Head and Scalp: normocephalic Eyes PERRL, EOMs intact bilaterally and conjunctivae normal Neck no lymphadenopathy, supple and no JVD Resp normal respiratory effort, normal air movement and no retractions Auscultation: diminished lung sounds Cardio regular rate, regular rhythm, no murmurs and no JVD GI normal to inspection, nondistended, normoactive bowel sounds, soft to palpation and non-tender Extremity normal to inspection, full ROM and no clubbing, cyanosis or edema Skin no rashes or lesions noted, no wounds and skin turgor normal Neuro CN's II-XII intact bilaterally Psych affect normal Assessment & Plan Assessment/Plan (1) Syncope: QUALIFIERS: Syncope type: unspecified Qualified Code(s): R55 - Syncope and collapse (2) COVID-19: PLAN: Day 1 Discharge planning: Current plan is for patient to discharge home. 1) syncope Orthostatic vitals positive, patient also reports recent adjustment of his blood pressure medications without appropriate outpatient follow-up. Echocardiogram demonstrated an EF of 55 to 60% and normal LV systolic function. Give fluid bolus and continue to monitor, hold outpatient BP meds. 2) COVID-19 infection Tested positive for Covid on May 01, 2021. Patient reports being short of breath and a productive cough, although vital signs are stable and patient is currently satting 96% on room air. Patient not initiated on steroids or remdesivir due to overall unimpressive presentation. CTA on admission did not demonstrate any evidence of pulmonary embolus. Continue to monitor, will need to remain in quarantine till May 10, 2021. DVT prophylaxis -low risk, not indicated. Patient seen by Boo Munoz PA-C, under the supervision of Dr. Martinez. Time spent on patient care: 8 minutes. Documented by User: Dr. Caridad Martinez MD 05/07/21 17:48 Objective Data Lab / Micro Data Result Diagrams: 05/06/21 12:35 05/07/21 05:02 Charges/Coding Addendum Addendum: This patient was seen in conjunction with ROSARIO Pantoja. I have independently interviewed and examined the patient and reviewed pertinent historical, laboratory, and other data. Please refer to ROSARIO Pantoja's note for his patient's presentation, findings, and recommendations. I have reviewed and his note and concur with his documentation Patient was seen and examined. He was orthostatic today. Complains of feeling slightly dizzy. Otherwise remains not on oxygen Temp Pulse Resp BP Pulse Ox 98.2 F 85 18 119/86 H 96 Labs: WBC count is 7.9, hemoglobin 15.1, platelet count 233 Sodium is 138, potassium 3.3, chloride 106, bicarb 25, BUN 15, creatinine 0.85, glucose 96 Physical Exam: Gen: Comfortable, not pale, not jaundiced, not on oxygen CVS:HS I +II, regular, no murmurs RESP: Diminished at lung bases GI: BS present and normal, soft, nontender, no palpable organs EXT:No edema ASSESSMENT: 1. Syncope secondary to orthostatic hypotension secondary to dehydration 2. Hypokalemia 3. Acute COVID-19 infection 4. Hypertension 5. MINISTERIO 6. Hyperlipidemia 7. Depression Plan: IV fluid bolus, maintenance IV fluids Repeat orthostatics in a.m. Hold amlodipine and losartan Visit Charges Inpatient E&M: 56673 Subs Hosp L3
[2021-05-07] MEDS: 0.9% Normal Saline 1,000 ML 75 ML IV (18:15)
[2021-05-07] MEDS: Atorvastatin Calcium 20 MG Tablet PO (21:17)
[2021-05-08] VITALS (8 sets, daily range): BP systolic 143–149; BP diastolic 78–103; PULSE 69–98; RESP 16–18; TEMP 36.5–36.8; O2SAT 94–95
--- NOTE | 2021-05-08 00:24 | PCS.PANDOC ---
PANDEMIC DOCUMENTATION INITIATED: Date: 12/14/2020 Time: 190
[2021-05-08] MEDS: Acetaminophen 325 MG Tablet 650 MG PO (04:48)
[2021-05-08 08:19] LABS: Absolute Lymphocyte Count 0.95 X10^3/uL (0.83-4.51); Absolute Neutrophil Count 3.5 X10^3/uL (2.0-7.7); Basophil# 0.02 X10^3/uL; Basophil% 0.4 % (0-1); Eosinophil# 0.04 X10^3/uL; Eosinophils% 0.8 % (0-5); Hematocrit 38.9 % (40-54); Hemoglobin 13.1 g/dL (13.0-16.5); Lymphocyte # 0.95 X10^3/ul (0.83-4.51); Lymphocyte % 18.6 % (19-41); Mean Corp Hgb Conc 33.7 g/dL (32-36); Mean Corpuscular Hgb 30.1 pg (27.0-32.0); Mean Corpuscular Volume 89.4 fL (80-94); Mean Platelet Vol. 9.7 fl (6.2-12.0); Monocyte% 11.7 % (0-10); NRBC Flagged by Analyzer 0 % (0-5); Neutrophil # 3.49 X10^3/uL (2.7-7.7); Neutrophil % 68.3 % (47-70); Platelet Count 227 K/mm3 (150-450); RBC Distribution Width CV 12.3 % (11.6-14.6); RBC Distribution Width SD 40.4 fl (35.1-43.9); Red Blood Count 4.35 M/mm3 (4.6-6.2); White Blood Count 5.1 K/mm3 (4.4-11.0)
[2021-05-08 08:49] LABS: Anion Gap 5 (5-15); BUN 14 mg/dL (7-18); BUN/Creat Ratio 16.1 RATIO (10-20); Calcium,Total 8.5 mg/dL (8.5-10.1); Chloride 106 mmol/L (98-107); Creatinine, Serum 0.87 mg/dL (0.70-1.30); EST Glomerular Filtration Rate 97 mL/min (>60); Est Glom Filt Rate - Afr Amer 117 mL/min (>60); Estimated Creatinine Clearance 111.54 ml/min; Glucose 94 mg/dL (74-106); Potassium 3.9 mmol/L (3.5-5.1); Sodium Level 139 mmol/L (136-145)
[2021-05-08] MEDS: Ascorbic Acid 500 MG Tablet PO (10:16)
[2021-05-08] MEDS: Paroxetine 20 MG Tablet 40 MG PO (10:16)
--- NOTE | 2021-05-08 11:44 | PCM.DC ---
Discharge Instructions Diet Discharge Diet: No restrictions Activity Discharge Activity: Return to Normal Activity Weight Bearing Status: Weight bearing as tolerated Dressing / Incision Call your doctor if you observe: Fever of 101 or Higher, Numbness or Tingling, Shortness of breath, Dizziness, Chest pain, Increased palpitations (irregular heartbeat) and Calf discomfort Follow Up Care Please Follow Up With: Primary care provider When: Within the next two weeks. Test Results: Test results from this visit will be discussed in further detail at your follow-up appointment, if applicable. Discharge Plan Admission Admit Date/Time: 05/06/21 14:21 Primary Reason for Your Visit: Syncope Attending Provider: Caridad Martinez Primary Care Provider: Darin Sharma Instructions Additional Instructions / Restrictions: * You can come out of your ten day quarantine on 05/11/2021. * Follow up with your PCP for appropriate follow up of your ongoing lightheadedness/dizziness. Discharge Orders/Prescriptions Prescriptions: Continued losartan 100 MG tablet 100 mg PO DAILY RF: 0 paroxetine HCl 40 mg tablet 40 mg PO DAILY RF: 0 amlodipine 5 mg tablet 5 mg PO DAILY RF: 0 ascorbic acid (vitamin C) [Vitamin C] 500 mg Tablet 500 mg PO DAILY RF: 0 zinc 50 mg Tablet 50 mg PO DAILY RF: 0 cholecalciferol (vitamin D3) [Vitamin D3] 50 mcg (2,000 unit) Capsule 50 mcg PO DAILY RF: 0 atorvastatin 20 MG tablet 20 mg PO DAILY RF: 0 Referrals / Follow Up: Darin Sharma MD [Primary Care Provider] - Within 2 Weeks Disposition Disposition (needs filled in before D/C Order can be placed): Home, Self Care
--- NOTE | 2021-05-08 15:32 | DS.PCM_ITS ---
Documented by User: Boo PONCE 05/08/21 15:42 Providers Date of Admission: 05/06/21 Primary Care Physician: Dr. Darin Sharma MD Reason For Visit: SYNCOPE Diagnosis Discharge Diagnosis (1) Syncope: Status: Acute Code(s): R55 - Syncope and collapse Qualifiers: Syncope type: unspecified Qualified Code(s): R55 - Syncope and collapse (2) COVID-19: Status: Acute Code(s): U07.1 - COVID-19 Medications at Discharge Home Medications losartan 100 mg PO DAILY 01/05/16 amlodipine 5 mg tablet 5 mg PO DAILY 12/09/20 paroxetine HCl 40 mg tablet 40 mg PO DAILY 12/09/20 ascorbic acid (vitamin C) [Vitamin C] 500 mg PO DAILY 05/06/21 atorvastatin 20 mg PO DAILY 05/06/21 cholecalciferol (vitamin D3) [Vitamin D3] 50 mcg PO DAILY 05/06/21 zinc 50 mg PO DAILY 05/06/21 Hospital Course Procedures 2-D Echocardiogram and Transthoracic echo Summary of Care Provided Minutes Spent on Discharge: 25 Hospital Course: Disposition: Patient is to discharge home. 1) syncope Orthostatic vitals positive. Echocardiogram demonstrated an EF of 55 to 60% and normal LV systolic function. Patient's home BP regimen was continued, patient is to follow-up with primary care provider in the next 2 weeks. 2) COVID-19 infection Tested positive for Covid on May 01, 2021. Patient is to remain in quarantine through 05/10/2021. Patient not initiated on steroids or remdesivir due to overall unimpressive presentation. CTA on admission did not demonstrate any evidence of pulmonary embolus. Patient seen by Boo Munzo PA-C, under the supervision of Dr. Martinez. Time spent on patient care: 25 minutes. Physical Exam Narrative Patient is a 55-year-old male comfortably resting in bed, alert and orient x3. Patient still reports mild congestion and cough, although reports that shortness of breath is improved. Denies development of any new symptoms overnight. Does not appear in acute distress. Const alert, oriented x3 and no apparent distress HEENT normocephalic, head/scalp atraumatic and hearing grossly normal bilaterally Eyes PERRL, EOMs intact bilaterally and conjunctivae normal Neck no lymphadenopathy, supple and no JVD Resp normal respiratory effort, no retractions, no use of accessory muscles and clear to auscultation bilaterally Cardio regular rate, regular rhythm, no murmurs and no JVD GI normal to inspection, nondistended, normoactive bowel sounds, soft to palpation and non-tender Extremity normal to inspection, full ROM and no clubbing, cyanosis or edema Skin no rashes or lesions noted, no wounds and skin turgor normal Neuro CN's II-XII intact bilaterally Psych affect normal Weight / BMI Weight Weight: 213 lb 5 oz Body Mass Index (BMI) 27.3 ABG / Lab / Microbiology Data Result Diagrams: 05/08/21 07:27 05/08/21 07:27 Laboratory: Laboratory Results - last 24 hr 05/08/21 07:27: WBC 5.1, RBC 4.35 L, Hgb 13.1, Hct 38.9 L, MCV 89.4, MCH 30.1, MCHC 33.7, RDW Std Deviation 40.4, RDW Coeff of Adolfo 12.3, Plt Count 227, MPV 9.7, Immature Gran % (Auto) 0.200, Neut % (Auto) 68.3, Lymph % (Auto) 18.6 L, [place] % (Auto) 11.7 H, Eos % (Auto) 0.8, Baso % (Auto) 0.4, Absolute Neuts (auto) 3.5, Absolute Lymphs (auto) 0.95, Nucleated RBC % 0 05/08/21 07:27: Sodium 139, Potassium 3.9, Chloride 106, Carbon Dioxide 28.0, Anion Gap 5, BUN 14, Creatinine 0.87, Estim Creat Clear Calc 111.54, Est GFR (MDRD) Af Amer 117, Est GFR (MDRD) Non-Af 97, BUN/Creatinine Ratio 16.1, Glucose 94, Calcium 8.5 Microbiology: Microbiology 05/06/21 12:35 Blood Culture (Wb) - Left Wrist Blood Culture - Preliminary No growth in 48 hours. D/C Instructions Discharge Diet: No restrictions Weight Bearing Status: Weight bearing as tolerated Call your doctor if you observe: Fever of 101 or Higher, Numbness or Tingling, Shortness of breath, Dizziness, Chest pain, Increased palpitations (irregular heartbeat) and Calf discomfort Please Follow Up With: Primary care provider When: Within the next two weeks. Meaningful Use Info Meaningful Use Diagnoses (Choose all that apply): None applicable Discharge Plan Admission Admit Date/Time: 05/06/21 14:21 Primary Reason for Your Visit: Syncope Attending Provider: Caridad Martinez Primary Care Provider: Darin Sharma Instructions Additional Instructions / Restrictions: * You can come out of your ten day quarantine on 05/11/2021. * Follow up with your PCP for appropriate follow up of your ongoing lightheadedness/dizziness. Discharge Orders/Prescriptions Prescriptions: Continued losartan 100 MG tablet 100 mg PO DAILY RF: 0 paroxetine HCl 40 mg tablet 40 mg PO DAILY RF: 0 amlodipine 5 mg tablet 5 mg PO DAILY RF: 0 ascorbic acid (vitamin C) [Vitamin C] 500 mg Tablet 500 mg PO DAILY RF: 0 zinc 50 mg Tablet 50 mg PO DAILY RF: 0 cholecalciferol (vitamin D3) [Vitamin D3] 50 mcg (2,000 unit) Capsule 50 mcg PO DAILY RF: 0 atorvastatin 20 MG tablet 20 mg PO DAILY RF: 0 Referrals / Follow Up: Darin Sharma MD [Primary Care Provider] - Within 2 Weeks Disposition Disposition (needs filled in before D/C Order can be placed): Home, Self Care Documented by User: Dr. Caridad Martinez MD 05/09/21 14:42 Providers Date of Admission: 05/06/21 Reason For Visit: SYNCOPE Medications at Discharge Home Medications losartan 100 mg PO DAILY 01/05/16 amlodipine 5 mg tablet 5 mg PO DAILY 12/09/20 paroxetine HCl 40 mg tablet 40 mg PO DAILY 12/09/20 ascorbic acid (vitamin C) [Vitamin C] 500 mg PO DAILY 05/06/21 atorvastatin 20 mg PO DAILY 05/06/21 cholecalciferol (vitamin D3) [Vitamin D3] 50 mcg PO DAILY 05/06/21 zinc 50 mg PO DAILY 05/06/21 ABG / Lab / Microbiology Data Result Diagrams: 05/08/21 07:27 05/08/21 07:27 Discharge Plan Admission Admit Date/Time: 05/06/21 14:21 Primary Reason for Your Visit: Syncope Attending Provider: Caridad Martinez Primary Care Provider: Darin Sharma Instructions Additional Instructions / Restrictions: * You can come out of your ten day quarantine on 05/11/2021. * Follow up with your PCP for appropriate follow up of your ongoing lightheadedness/dizziness. Discharge Orders/Prescriptions Prescriptions: Continued losartan 100 MG tablet 100 mg PO DAILY RF: 0 paroxetine HCl 40 mg tablet 40 mg PO DAILY RF: 0 amlodipine 5 mg tablet 5 mg PO DAILY RF: 0 ascorbic acid (vitamin C) [Vitamin C] 500 mg Tablet 500 mg PO DAILY RF: 0 zinc 50 mg Tablet 50 mg PO DAILY RF: 0 cholecalciferol (vitamin D3) [Vitamin D3] 50 mcg (2,000 unit) Capsule 50 mcg PO DAILY RF: 0 atorvastatin 20 MG tablet 20 mg PO DAILY RF: 0 Referrals / Follow Up: Darin Sharma MD [Primary Care Provider] - Within 2 Weeks Disposition Disposition (needs filled in before D/C Order can be placed): Home, Self Care Charges/Coding Addendum Addendum: This patient was seen in conjunction with ROSARIO Pantoja. I have independently interviewed and examined the patient and reviewed pertinent historical, laboratory, and other data. Please refer to ROSARIO Pantoja's note for his patient's presentation, findings, and recommendations. I have reviewed and his note and concur with his documentation 55-year-old male with multiple comorbidities significant for hypertension, chronic back pain who is vaccinated with a J&J vaccine comes in with syncopal episode. Patient was in the shower and felt woozy and fell backwards hitting the bathtub faucet. He admitted to feeling unwell 5 days prior to that with fever chills and malaise. He was also recently tested positive for acute COVID- 19 infection. In the emergency room, his orthostatic vitals were positive. CTA of the chest was negative for acute PE. Patient was admitted to the PCU and monitored overnight. He received IV fluids. He had hypokalemia that was replaced. He did not require oxygen throughout his hospital stay. Repeat orthostatic vitals at discharge were negative. No acute events during his hospital stay. Patient was asked to continue to use his incentive spirometer -he stated that he had one at home. He will follow-up with his primary care doctor within 1 to 2 weeks. On the day of discharge, he was seen and examined. Denied any new complaints. Physical Exam: Gen: Comfortable, not pale, not jaundiced, not on oxygen CVS:HS I +II, regular, no murmurs RESP: Diminished at lung bases GI: BS present and normal, soft, nontender, no palpable organs EXT:No edema Visit Charges OBSV E&M: 01009 Observation care discharge
== END 2021-05-08 11:58 | disposition home or self-care (01) ==
LOC: ED 14:05 → PCU 15:34
PROVIDERS: Physician Assistant; Emergency Provider Emergency Medicine; PCP Family Medicine; Visit Provider Internal Medicine
DX: U07.1 COVID-19 (principal); S20.229A Contusion of unspecified back wall of thorax, initial encounter; I10 Essential (primary) hypertension; I95.1 Orthostatic hypotension; E87.6 Hypokalemia; G47.33 Obstructive sleep apnea (adult) (pediatric); G89.29 Other chronic pain; F32.A Depression, unspecified; E78.5 Hyperlipidemia, unspecified; E86.0 Dehydration; Z79.899 Other long term (current) drug therapy; Z87.891 Personal history of nicotine dependence; W18.2XXA Fall in (into) shower or empty bathtub, initial encounter; Y93.E1 Activity, personal bathing and showering; Y92.89 Other specified places as the place of occurrence of the external cause; M19.90 Unspecified osteoarthritis, unspecified site; M41.9 Scoliosis, unspecified; M99.05 Segmental and somatic dysfunction of pelvic region
CPT/HCPCS: 36415; 70450; 71275; 80048; 83735; 84443; 84484; 85025; 85379; 87040; 93005; 93306; 96360; 96361; 97802; 99218; 99285; J7030; J7040; Q9957; Q9967; A4216; G0378

== ENCOUNTER 2021-05-10 15:11 | Outpatient (CLI) | payer OTHER, SELFPAY ==
[2021-05-10] MEDS: 0.9% Saline Lock 10 ML Syringe IV (15:24)
[2021-05-10 15:25] VITALS: BP 126/87; PULSE 82; RESP 16; TEMP 36.5; O2SAT 99; BMI 28.2
[2021-05-10 15:55] VITALS: BP 118/86; PULSE 80; RESP 16; TEMP 37.4; O2SAT 99
[2021-05-10 16:48] VITALS: BP 128/89; PULSE 65; RESP 16; TEMP 37; O2SAT 100
== END 2021-05-10 23:59 | disposition home or self-care (01) ==
LOC: MS3OUT 15:11 → MS3 15:13
PROVIDERS: PCP Family Medicine; Referring Provider Nurse Practitioner Adult Health; Visit Provider Nurse Practitioner Adult Health
DX: U07.1 COVID-19 (principal)
CPT/HCPCS: J7050; M0243; A4216; Q0244

== ENCOUNTER 2021-06-13 11:01 | Emergency (ER) | payer OTHER, SELFPAY ==
[2021-06-13 11:02] VITALS: BP 115/85; PULSE 89; RESP 16; TEMP 35.3; O2SAT 99; BMI 29.5
--- NOTE | 2021-06-13 11:30 | EX.ED.DYSGE1 ---
HPI History of Present Illness Chief Complaint: Abd Pain Informant: patient Onset/Context/Timing Onset: Days (2 days) Context: Gradual Onset Timing: Waxes and wanes Current Severity: Moderate Maximum Severity: Moderate Narrative Narrative: Patient presents secondary to right upper quadrant pain. Pain started Monday evening and seems to be constant. It is not changed with food. He denies fever or chills. No nausea or vomiting. No diarrhea. He reports mild congestion with cough. He does not feel short of breath. He has no chest pain. [facility] Medical History Alcohol use Anxiety Arthritis Benign essential HTN Bilateral headaches Contusion of back COVID-19 CPAP (continuous positive airway pressure) dependence History of steroid therapy History of stress test Hypertension Injury of back Scoliosis Segmental and somatic dysfunction of pelvic region Sleep apnea Syncope Wears glasses Wears hearing aid Home Medications paroxetine HCl 40 mg tablet 40 mg PO DAILY 12/09/20 [History Last Taken 05/06/21] ascorbic acid (vitamin C) [Vitamin C] 500 mg PO DAILY 05/06/21 [History Last Taken 05/06/21] atorvastatin 20 mg PO DAILY 05/06/21 [History Last Taken 05/06/21] cholecalciferol (vitamin D3) [Vitamin D3] 50 mcg PO DAILY 05/06/21 [History Last Taken 05/06/21] zinc 50 mg PO DAILY 05/06/21 [History Last Taken 05/06/21] losartan 50 mg tablet 50 mg PO DAILY 05/21/21 [History Last Taken Unknown] hydrocodone-acetaminophen 1 tab PO Q6H PRN 3 Days #10 tab 06/13/21 [Rx Last Taken Unknown] ondansetron 4 mg PO Q8H PRN #10 tab 06/13/21 [Rx Last Taken Unknown] Allergy/AdvReac Type Severity Reaction Status Date / Time sugammadex AdvReac Severe Low blood Verified 05/10/21 11:34 pressure Family History Other Arthritis Cancer Heart disease Hypertension Surgical History No pertinent past surgical history Social History Smoking Status: Former smoker alcohol intake: current alcohol intake frequency: 0-2 drinks per day substance use type: does not use what type of physical activity do you participate in: none ROS ROS ED Constitutional Constitutional ED: Denies chills or fever(s) Eyes Eyes: Denies change in vision ENT ENT ED: Denies sore throat Cardiovascular Cardiovascular: Denies chest pain Respiratory/Chest Respiratory/Chest: Reports cough; Denies dyspnea Gastrointestinal Gastrointestinal: Reports abdominal pain; Denies diarrhea, nausea or vomiting Genitourinary Genitourinary ED: Denies dysuria Musculoskeletal Musculoskeletal: Denies back pain or neck pain Integumentary Denies rash Neurologic Neurologic: Denies headache(s) Allergic/Immunologic Allergic/Immunologic ED: Denies urticaria EXAM Physical Exam Const Vital Signs: 06/13/21 11:02 06/13/21 13:28 Temperature 95.6 F L Temperature Source Temporal Pulse Rate 89 84 Respiratory Rate 16 16 Blood Pressure 115/85 H 118/80 Blood Pressure Mean 95 92 Pulse Ox 99 99 Oxygen Delivery Method Room Air Room Air Positive well nourished and well developed General Appearance ED: well developed HEENT Reports moist mucous membranes Eyes PERRL and EOMs intact bilaterally Neck supple Chest Wall inspection of chest normal and palpation of chest normal Resp normal respiratory effort and clear to auscultation bilaterally Cardio regular rate and regular rhythm GI Auscultation: hypoactive bowel sounds Palpation: soft and tender RUQ; Negative for guarding or rebound tenderness present Extremity normal to inspection Neuro oriented x3 Sensorium / Orientation: alert Psych mental status grossly normal Skin no rashes or lesions noted MDM MDM MDM Narrative Medical decision making narrative: Patient given morphine and Zofran for pain. Lab work obtained. Lab Data Attestation: I reviewed the patient's lab results. Labs: Laboratory Results - last 24 hr 06/13/21 06/13/21 11:40 11:40 WBC 5.5 RBC 4.88 Hgb 15.1 Hct 44.2 MCV 90.6 MCH 30.9 MCHC 34.2 RDW Std Deviation 42.5 RDW Coeff of Adolfo 12.8 Plt Count 248 MPV 9.6 Immature Gran % (Auto) 0.200 Neut % (Auto) 72.4 H Lymph % (Auto) 13.4 L [place] % (Auto) 10.6 H Eos % (Auto) 2.9 Baso % (Auto) 0.5 Absolute Neuts (auto) 4.0 Absolute Lymphs (auto) 0.74 L Nucleated RBC % 0 Sodium 139 Potassium 3.5 Chloride 105 Carbon Dioxide 27.0 Anion Gap 7 BUN 15 Creatinine 0.88 Estim Creat Clear Calc 110.27 Est GFR (MDRD) Af Amer 115 Est GFR (MDRD) Non-Af 95 BUN/Creatinine Ratio 16.9 Glucose 89 Calcium 8.8 Total Bilirubin 1.50 H Direct Bilirubin 0.34 H AST 17 ALT 36 Alkaline Phosphatase 204 H Total Protein 8.2 Albumin 3.6 Globulin 4.6 H Lipase 104 Radiography Diagnostic Testing: Clinical Impression(s) from Imaging Studies Abdomen/Pelvis CT 06/13/21 12:21 IMPRESSION: Epiploic appendagitis of the ascending colon. Enlarged portacaval, monique hepatis and gastrohepatic lymph nodes, may be reactive however cannot exclude a neoplastic process. 4 mm pulmonary nodule within the lingula, consider follow-up chest CT in 12 months. Degenerative changes of the lumbar spine. Electronically Signed: Erica Lowe MD at 15:12 EST , Treatment and Re-Evaluation Comments:: Lab work reveals normal white count. Chemistry studies reveal a very mild elevation in bilirubin with normal LFTs otherwise. CT scan of the abdomen and pelvis with p.o. and IV contrast is obtained. This does reveal evidence of epiploic appendagitis. The appendix is visualized and is normal. Patient will be given [place] and Zofran for home. Return instructions provided. Discharge Plan Triage Chief Complaint: Abd Pain ED Provider: Diandra Baca Dx/Rx/DC Orders Clinical Impression: Epiploic appendagitis Instructions: ED Abdominal Pain Unkn Cause Male... Prescriptions: New hydrocodone-acetaminophen 5-325 mg tablet 1 tab PO Q6H PRN (Reason: pain) 3 Days Qty: 10 RF: 0 ondansetron 4 mg tablet,disintegrating 4 mg PO Q8H PRN (Reason: nausea and vomiting) Qty: 10 RF: 0 No Action losartan 50 mg tablet 50 mg PO DAILY RF: 0 paroxetine HCl 40 mg tablet 40 mg PO DAILY RF: 0 ascorbic acid (vitamin C) [Vitamin C] 500 mg Tablet 500 mg PO DAILY RF: 0 zinc 50 mg Tablet 50 mg PO DAILY RF: 0 cholecalciferol (vitamin D3) [Vitamin D3] 50 mcg (2,000 unit) Capsule 50 mcg PO DAILY RF: 0 atorvastatin 20 MG tablet 20 mg PO DAILY RF: 0 Primary Care Provider: Darin Sharma Referrals: Darin Sharma MD [Primary Care Provider] - 1 Week Activity Restrictions/Additional Instructions: As discussed, your CT scan reveals evidence of epiploic appendagitis or inflammation of the fat around the intestine. Your appendix is visualized and is normal. Symptoms should resolve with supportive care. Disposition Disposition: Home, Self Care
[2021-06-13] MEDS: Morphine 4 MG/ML Syringe IV (11:46)
[2021-06-13] MEDS: Ondansetron 4 MG/2 ML Vial IV (11:46)
[2021-06-13] MEDS: 0.9% Normal Saline 1,000 ML 150 ML IV (11:52)
[2021-06-13 12:00] LABS: Absolute Lymphocyte Count 0.74 X10^3/uL (0.83-4.51); Basophil# 0.03 X10^3/uL; Basophil% 0.5 % (0-1); Eosinophil# 0.16 X10^3/uL; Eosinophils% 2.9 % (0-5); Hematocrit 44.2 % (40-54); Hemoglobin 15.1 g/dL (13.0-16.5); Lymphocyte # 0.74 X10^3/ul (0.83-4.51); Lymphocyte % 13.4 % (19-41); Mean Corp Hgb Conc 34.2 g/dL (32-36); Mean Corpuscular Hgb 30.9 pg (27.0-32.0); Mean Corpuscular Volume 90.6 fL (80-94); Mean Platelet Vol. 9.6 fl (6.2-12.0); Monocyte# 0.59 X10^3/uL; Monocyte% 10.6 % (0-10); NRBC Flagged by Analyzer 0 % (0-5); Neutrophil # 4.01 X10^3/uL (2.7-7.7); Neutrophil % 72.4 % (47-70); Platelet Count 248 K/mm3 (150-450); RBC Distribution Width CV 12.8 % (11.6-14.6); RBC Distribution Width SD 42.5 fl (35.1-43.9); Red Blood Count 4.88 M/mm3 (4.6-6.2); White Blood Count 5.5 K/mm3 (4.4-11.0)
[2021-06-13 12:14] LABS: AST(SGOT) 17 U/L (15-37); Alanine Aminotransfer ALT/SGPT 36 U/L (16-61); Albumin, Serum 3.6 g/dL (3.2-5.0); Alkaline Phosphatase 204 U/L (45-117); Anion Gap 7 (5-15); BUN 15 mg/dL (7-18); BUN/Creat Ratio 16.9 RATIO (10-20); Bilirubin, Direct 0.34 mg/dL (0.00-0.30); Calcium,Total 8.8 mg/dL (8.5-10.1); Chloride 105 mmol/L (98-107); Creatinine, Serum 0.88 mg/dL (0.70-1.30); EST Glomerular Filtration Rate 95 mL/min (>60); Est Glom Filt Rate - Afr Amer 115 mL/min (>60); Estimated Creatinine Clearance 110.27 ml/min; Globulin 4.6 g/dL (2.2-4.2); Glucose 89 mg/dL (74-106); Lipase 104 U/L (73-393); Potassium 3.5 mmol/L (3.5-5.1); Protein, Total 8.2 g/dL (6.4-8.2); Sodium Level 139 mmol/L (136-145)
--- NOTE | 2021-06-13 12:21 | CT_ITS ---
STUDY: CT ABDOMEN AND PELVIS WITH CONTRAST REASON FOR EXAM: Male, 55 years old. Abdominal pain -- IV PO Contrast RADIATION DOSAGE (If Supplied By Facility): CTDIvol = ( 12.96 ) mGy, DLP = ( 1303.35 ) mGycm TECHNIQUE: Transaxial images were obtained from the dome of the diaphragm to the symphysis pubis without oral contrast. Oral and amp; IV Gastrografin and amp; 100mL Isovue-300 was administered. Sagittal and coronal images were reconstructed. Individualized dose optimization techniques were used for this CT. COMPARISON: CT of the chest dated 05/06/2021 FINDINGS: There is a stable 4 mm nodule within the lingula. There is a nonspecific peribronchial groundglass opacity within the left lower lobe. The visualized portions of the heart are within normal limits. Normal liver. Normal gallbladder and extrahepatic biliary system. Normal spleen. Normal pancreas. There are enlarged gastrohepatic, monique hepatis and portacaval lymph nodes. Normal bilateral adrenal glands. Normal right kidney. Normal left kidney. Normal visualized stomach. Normal small intestine. There is an ovoid fat-containing focus with adjacent stranding along the antimesenteric side of the ascending colon consistent with epiploic appendagitis. The appendix is visualized and appears normal. Normal abdominal aorta. Normal inferior vena cava. There are prominent nonpathologically enlarged retroperitoneal lymph nodes Normal urinary bladder. Normal abdominal wall. There are diffuse degenerative changes of the visualized lumbar spine. CT/Abdomen/Pelvis WITH Contrast IMPRESSION: Epiploic appendagitis of the ascending colon. Enlarged portacaval, monique hepatis and gastrohepatic lymph nodes, may be reactive however cannot exclude a neoplastic process. 4 mm pulmonary nodule within the lingula, consider follow-up chest CT in 12 months. Degenerative changes of the lumbar spine. Electronically Signed: Erica Lowe MD at 15:12 EST ,
[2021-06-13 13:28] VITALS: BP 118/80; PULSE 84; RESP 16; O2SAT 99
[2021-06-13 15:40] VITALS: BP 136/74; PULSE 86; RESP 15; O2SAT 98
== END 2021-06-13 15:41 | disposition home or self-care (01) ==
PROVIDERS: Emergency Provider Emergency Medicine; PCP Family Medicine; Visit Provider Emergency Medicine
DX: K65.9 Peritonitis, unspecified (principal); I10 Essential (primary) hypertension; Z79.899 Other long term (current) drug therapy; Z86.16 Personal history of COVID-19; Z87.891 Personal history of nicotine dependence
CPT/HCPCS: 74177; 80048; 80076; 83690; 85025; 96361; 96374; 96375; 99283; J7030; Q9967; A4216; J2405

== ENCOUNTER 2021-08-18 16:23 | Outpatient (CLI) | payer OTHER, SELFPAY ==
--- NOTE | 2021-08-18 16:26 | RAD_ITS ---
STUDY: X-RAY - LUMBAR SPINE REASON FOR EXAM: Male, 55 years old. PAIN TECHNIQUE: 5 view(s) of the lumbar spine were obtained. COMPARISON: Lumbar spine x-rays 10/23/2013. FINDINGS: Vertebral bodies are normal height. No fracture demonstrated. No subluxation. Disc space narrowing with osteophytes and endplate irregularity at multiple levels, most pronounced at L2-3, similar but increased compared to prior study. Also increased at L4-5 and L5-S1. No paravertebral soft tissue mass identified. RAD/L/S Spine Min 4 Views IMPRESSION: Degenerative changes mildly increased compared to prior study. No evidence of fracture or subluxation. Electronically Signed: Winifred Bess MD at 4:02 EDT ,
== END 2021-08-18 23:59 | disposition home or self-care (01) ==
LOC: MTRAD 16:25
PROVIDERS: PCP Family Medicine; Referring Provider Nurse Practitioner Family; Visit Provider Nurse Practitioner Family
DX: M51.37 Other intervertebral disc degeneration, lumbosacral region (principal); M47.817 Spondylosis without myelopathy or radiculopathy, lumbosacral region
CPT/HCPCS: 72110

== ENCOUNTER → 2021-09-15 | Outpatient (CLI) | payer OTHER, SELFPAY ==
--- NOTE | 2021-09-15 15:37 | RAD_ITS ---
STUDY: X-RAY - PELVIS AND LEFT HIP REASON FOR EXAM: Male, 55 years old. PAIN TECHNIQUE: views of the pelvis and hip. COMPARISON: None. FINDINGS: There is a non-specific bowel gas pattern. Normal visualized soft tissue structures. Normal bilateral iliac wings, sacroiliac joints and visualized sacrum. Normal bilateral superior and inferior pubic rami. Normal pubic symphysis. Normal bilateral ischial tuberosities. Normal visualized femoral head. Normal acetabulum. Normal hip joint. RAD/HIP, UNI W/ Pelvis 2-3 Views IMPRESSION: Normal x-ray examination of the pelvis and hip. Electronically Signed: Ray Rothman MD at 4:42 EDT ,
== END | disposition home or self-care (01) ==
LOC: MTLAB 15:35
PROVIDERS: PCP Family Medicine; Referring Provider Nurse Practitioner Family; Visit Provider Nurse Practitioner Family
DX: M25.552 Pain in left hip (principal)
CPT/HCPCS: 73502

== ENCOUNTER → 2022-05-07 | Outpatient (CLI) | payer OTHER, SELFPAY ==
--- NOTE | 2022-05-07 09:51 | MRI_ITS ---
MRI of the lumbar spine INDICATION: Lumbar radiculopathy TECHNIQUE: MRI of the lumbar spine was performed in the sagittal and axial projections utilizing T1, T2 and STIR imaging sequences FINDINGS: Bony structures demonstrate homogeneous signal intensity. No evidence for acute fracture or subluxation. Conus medullaris is unremarkable and terminates at T12-L1. L1-2: Mild anterior endplate spurring Normal disc space height, hydration and morphology. Mild facet arthropathy. Normal central canal, bilateral lateral recesses and neuroforamina. L2-3: Grade 1 retrolisthesis Narrowed disc space with degenerative endplate changes. Desiccation of the disc and minor bulging disc osteophyte complex. Normal central canal and bilateral lateral recesses. Severe bilateral neural foraminal stenosis saturated by shortened pedicles L3-4: Normal disc space height and hydration with minor bulging of the disc. Bilateral facet arthropathy. Normal central canal and bilateral lateral recesses. Moderate to severe bilateral neural foraminal stenosis exaggerated by shortened pedicles L4-5: Mild endplate spurring. Normal disc space height with mild desiccation of the disc and prominent annular bulge with broad-based central disc/right paracentral protrusion. Facet arthropathy and thickening of ligamenta flava. Moderate central canal stenosis Moderate left lateral recess and severe right lateral recess stenosis. Severe bilateral neural foraminal stenosis exaggerated by shortened pedicles L5-S1: Normal disc space height with desiccation of the disc and minor bulging of the annulus tiny central disc protrusion. Mild facet arthropathy. Normal central canal and bilateral lateral recesses. Mild right neural foraminal stenosis and moderate narrowing of the left MRI/Spine Lumbar (Routine) IMPRESSION: No evidence for acute fracture or other significant bony pathology. Spondylosis and multilevel spinal stenosis secondary to disc disease and bony hypertrophy and exaggerated by shortened pedicles most severe at L4-5 on the right and L5-S1 on the left Findings as above Electronically Signed: Jorgito Jose MD at 16:52 EST ,
== END | disposition home or self-care (01) ==
LOC: MRI 09:31
PROVIDERS: PCP Family Medicine; Referring Provider Nurse Practitioner Family; Visit Provider Nurse Practitioner Family
DX: M51.17 Intervertebral disc disorders with radiculopathy, lumbosacral region (principal); M46.96 Unspecified inflammatory spondylopathy, lumbar region; M47.27 Other spondylosis with radiculopathy, lumbosacral region; M48.07 Spinal stenosis, lumbosacral region
CPT/HCPCS: 72148

== ENCOUNTER → 2022-05-17 | Outpatient (CLI) | payer OTHER, SELFPAY ==
--- NOTE | 2022-05-17 17:49 | CT_ITS ---
STUDY: CT CHEST WITH CONTRAST REASON FOR EXAM: Male, 56 years old. Lung nodule. RADIATION DOSAGE (If Supplied By Facility): CTDIvol = ( 17.23 ) mGy, DLP = ( 756.93 ) mGycm TECHNIQUE: Transaxial imaging was performed following intravenous administration of IV 100mL Isovue-370. Individualized dose optimization techniques were used for this CT. COMPARISON: 05/06/2021 CT chest. FINDINGS: Heart and great vessels: Heart size normal. No dissection or aneurysm of the thoracic aorta. Atherosclerosis of the coronary arteries, not well evaluated because of cardiac motion. No pulmonary embolus. Lungs, pleura, airways: Interval increase in number of small in size peripheral tree in bud nodules bilaterally most prominent in the upper lungs. No consolidation, pneumothorax or pleural effusion. Mediastinum: Moderate bilateral hilar and subcarinal and mild paratracheal lymphadenopathy not significantly changed. Osseous:No acute osseous abnormality. Cervical spine fusion hardware partially visible. Chest wall: No concerning findings. Upper abdomen: No acute findings. CT/Chest WITH Contrast IMPRESSION: Interval increase in number of small in size peripheral tree in bud nodules bilaterally most prominent in the upper lungs. Persistent hilar and paratracheal adenopathy. Findings most suspicious for sarcoidosis. Granulomatous infectious process, sequela of silica or beryllium exposure could also appear this way. The relative lack of progression argues against neoplasm which is unlikely. Consider pulmonary evaluation. Electronically Signed: Lex Lara MD at 1:23 [facility] Reading Location ID and State: [facility] / [place] Tel , Service support ,
[2022-05-17 18:16] LABS: CREATININE FINGERSTICK 1.2 mg/dL (0.70-1.30); EGFR FINGERSTICK > 60.0000 mL/min (>60)
== END | disposition home or self-care (01) ==
PROVIDERS: PCP Family Medicine; Visit Provider Family Medicine
DX: R91.8 Other nonspecific abnormal finding of lung field (principal); Z87.891 Personal history of nicotine dependence
CPT/HCPCS: 71260; Q9967

== ENCOUNTER → 2022-06-20 | Outpatient (CLI) | payer OTHER, SELFPAY ==
--- NOTE | 2022-06-21 07:11 | PFT ---
INTRODUCTION: The patient is a 56-year-old male that presents for pulmonary function studies secondary to a diagnosis of shortness of breath. Respiratory therapy reported good patient effort. Bronchodilators were used during testing. INTERPRETATION: Forced expiration spirometry demonstrates no evidence of a large airways obstructive ventilatory defect. There was no significant response to aerosolized bronchodilators. Spirograms are of good quality and plateau normally. The respiratory flow-volume loop is normal. Body plethysmography was performed and reveals lung volumes to be within normal limits. Diffusing capacity by single breath CO was also within normal limits. IMPRESSION: Grossly normal pulmonary function studies.
== END | disposition home or self-care (01) ==
LOC: PSN 08:03
PROVIDERS: PCP Family Medicine; Visit Provider Internal Medicine Critical Care Medicine
DX: R93.89 Abnormal findings on diagnostic imaging of other specified body structures (principal)
CPT/HCPCS: 94060; 94726; 94729

== ENCOUNTER → 2022-09-21 | Outpatient (CLI) | payer OTHER, SELFPAY ==
--- NOTE | 2022-09-21 15:55 | RAD_ITS ---
EXAM: XR LEFT KNEE, 3 VIEWS CLINICAL INDICATION: PAIN TECHNIQUE: Three views of the left knee. COMPARISON: No relevant prior studies available. FINDINGS: BONES/JOINTS: Medial and lateral meniscal chondrocalcinosis. Joint spaces are maintained. No sclerotic or destructive changes observed. No significant joint effusion. No acute or healing fracture or malalignment. SOFT TISSUES: Unremarkable. No soft tissue swelling or gas. No radiopaque foreign body. RAD/Knee 3 Views IMPRESSION: Medial and lateral meniscal chondrocalcinosis without significant joint space loss or other arthritic changes. Electronically Signed: Regino Peterson MD at 3:17 EDT ,
--- NOTE | 2022-09-21 15:55 | RAD_ITS ---
EXAM: XR RIGHT KNEE, 3 VIEWS CLINICAL INDICATION: PAIN TECHNIQUE: Three views of the right knee. COMPARISON: No relevant prior studies available. FINDINGS: BONES/JOINTS: Medial and lateral meniscal chondrocalcinosis. Joint spaces are maintained. Tiny suprapatellar enthesophyte. No significant joint effusion. No acute or healing fracture or malalignment. No unusual lytic or sclerotic lesions of bone. SOFT TISSUES: Unremarkable. No soft tissue swelling or gas. No radiopaque foreign body. RAD/Knee 3 Views IMPRESSION: Medial lateral meniscal chondrocalcinosis with preserved joint spaces. Electronically Signed: Regino Peterson MD at 4:47 EDT ,
== END | disposition home or self-care (01) ==
LOC: MTRAD 15:54
PROVIDERS: PCP Internal Medicine; Referring Provider Nurse Practitioner Acute Care; Visit Provider Nurse Practitioner Acute Care
DX: M25.562 Pain in left knee (principal); M25.561 Pain in right knee
CPT/HCPCS: 73562

== ENCOUNTER → 2022-10-19 | Outpatient (CLI) | payer OTHER, SELFPAY ==
[2022-10-19 15:18] LABS: Absolute Lymphocyte Count 0.93 X10^3/uL (0.83-4.51); Absolute Neutrophil Count 2.6 X10^3/uL (2.0-7.7); Basophil# 0.05 X10^3/uL; Basophil% 1.1 % (0-1); Eosinophil# 0.12 X10^3/uL; Eosinophils% 2.8 % (0-5); Hematocrit 46.5 % (40-54); Hemoglobin 15.8 g/dL (13.0-16.5); Lymphocyte # 0.93 X10^3/ul (0.83-4.51); Lymphocyte % 21.3 % (19-41); Mean Corpuscular Hgb 30.7 pg (27.0-32.0); Mean Corpuscular Volume 90.5 fL (80-94); Mean Platelet Vol. 10.2 fl (6.2-12.0); Monocyte# 0.62 X10^3/uL; Monocyte% 14.2 % (0-10); NRBC Flagged by Analyzer 0 % (0-5); Neutrophil # 2.63 X10^3/uL (2.7-7.7); Neutrophil % 60.4 % (47-70); Platelet Count 278 K/mm3 (150-450); RBC Distribution Width CV 12.7 % (11.6-14.6); RBC Distribution Width SD 41.7 fl (35.1-43.9); Red Blood Count 5.14 M/mm3 (4.6-6.2); White Blood Count 4.4 K/mm3 (4.4-11.0)
[2022-10-19 15:40] LABS: ALB/GLOB Ratio 0.9 RATIO (0.9-2.4); AST(SGOT) 33 U/L (15-37); Alanine Aminotransfer ALT/SGPT 58 U/L (16-61); Albumin, Serum 3.8 g/dL (3.2-5.0); Alkaline Phosphatase 190 U/L (45-117); Anion Gap 4 (5-15); BUN 13 mg/dL (7-18); BUN/Creat Ratio 13.8 RATIO (10-20); Calcium,Total 8.8 mg/dL (8.5-10.1); Chloride 107 mmol/L (98-107); Cholesterol 115 mg/dL (200); Creatinine, Serum 0.94 mg/dL (0.70-1.30); EST Glomerular Filtration Rate 88 mL/min (>60); Est Glom Filt Rate - Afr Amer 107 mL/min (>60); Globulin 4.2 g/dL (2.2-4.2); Glucose 91 mg/dL (74-106); High Density Lipoprotein 27 mg/dL; Potassium 3.9 mmol/L (3.5-5.1); Sodium Level 140 mmol/L (136-145); Triglycerides 105 mg/dL; Very Low Density Lipoprotein 21 mg/dL (5-40)
== END | disposition home or self-care (01) ==
LOC: BIMLAB 11:56
PROVIDERS: PCP Internal Medicine; Referring Provider Internal Medicine; Visit Provider Internal Medicine
DX: I10 Essential (primary) hypertension (principal); E78.2 Mixed hyperlipidemia
CPT/HCPCS: 36415; 80053; 80061; 85025

== ENCOUNTER → 2023-12-01 | Outpatient (CLI) | payer OTHER, SELFPAY ==
[2023-12-01 11:20] LABS: Absolute Lymphocyte Count 0.91 X10^3/uL (0.83-4.51); Absolute Neutrophil Count 2.6 X10^3/uL (2.0-7.7); Basophil# 0.07 X10^3/uL; Basophil% 1.6 % (0-1); Eosinophil# 0.13 X10^3/uL; Hematocrit 49.6 % (40-54); Hemoglobin 16.5 g/dL (13.0-16.5); Lymphocyte # 0.91 X10^3/ul (0.83-4.51); Mean Corp Hgb Conc 33.3 g/dL (32-36); Mean Corpuscular Hgb 29.9 pg (27.0-32.0); Monocyte# 0.57 X10^3/uL; Monocyte% 13.2 % (0-10); NRBC Flagged by Analyzer 0 % (0-5); Neutrophil # 2.64 X10^3/uL (2.7-7.7); Platelet Count 288 K/mm3 (150-450); RBC Distribution Width SD 39.9 fl (35.1-43.9); Red Blood Count 5.51 M/mm3 (4.6-6.2); White Blood Count 4.3 K/mm3 (4.4-11.0)
[2023-12-01 11:33] LABS: ALB/GLOB Ratio 0.9 RATIO (0.9-2.4); AST(SGOT) 30 U/L (15-37); Alanine Aminotransfer ALT/SGPT 51 U/L (16-61); Albumin, Serum 3.9 g/dL (3.2-5.0); Alkaline Phosphatase 202 U/L (45-117); Anion Gap 5 (5-15); BUN 12 mg/dL (7-18); BUN/Creat Ratio 12.8 RATIO (10-20); Calcium,Total 8.7 mg/dL (8.5-10.1); Chloride 105 mmol/L (98-107); Cholesterol 110 mg/dL (200); Creatinine, Serum 0.94 mg/dL (0.70-1.30); EST Glomerular Filtration Rate 88 mL/min (>60); Est Glom Filt Rate - Afr Amer 106 mL/min (>60); Globulin 4.5 g/dL (2.2-4.2); Glucose 97 mg/dL (74-106); High Density Lipoprotein 28 mg/dL; PSA,Total - Annual Screen 0.55 ng/mL (0.00-4.00); Protein, Total 8.4 g/dL (6.4-8.2); Sodium Level 138 mmol/L (136-145); Triglycerides 84 mg/dL; Very Low Density Lipoprotein 17 mg/dL (5-40)
== END | disposition home or self-care (01) ==
LOC: BIMLAB 09:18
PROVIDERS: PCP Internal Medicine; Referring Provider Nurse Practitioner; Visit Provider Nurse Practitioner
DX: Z00.00 Encounter for general adult medical examination without abnormal findings (principal); I10 Essential (primary) hypertension; Z12.5 Encounter for screening for malignant neoplasm of prostate
CPT/HCPCS: 36415; 80053; 80061; 84153; 85025; G0103

== ENCOUNTER → 2023-12-12 | Outpatient (CLI) | payer OTHER, SELFPAY ==
--- NOTE | 2023-12-12 08:49 | US_ITS ---
STUDY: ABDOMINAL ULTRASOUND - RIGHT UPPER QUADRANT REASON FOR VISIT: Male, 58 years old elevated bilirubin, alk phos TECHNIQUE: Ultrasound evaluation of the right upper quadrant was performed with real-time and static burnett-scale imaging. TECHNICAL QUALITY: Limited. Examination limited by bowel gas. COMPARISON: Comparison is made with prior sonogram dated March 26, 2018. FINDINGS: Liver: The liver measures 17.8 cm. There is increased echogenicity consistent with fatty infiltration. The bile ducts are within normal limits. There is hepatic color flow. The direction of portal flow is hepatopetal. There is no demonstrated mass lesion. Gallbladder: Normal distended gallbladder. The gallbladder wall measures 2.0 mm. There is a negative sonographic Pinto''s sign. There is no pericholecystic fluid. There are no gallstones. Common Bile Duct (C.B.D.): The common bile duct measures 5.3 mm. Pancreas: There is nonvisualization of the pancreas due to overlying bowel gas. Right Kidney: Normal size of the right kidney. The right kidney measures 12 cm x 5.4 cm x 6.6 cm. Normal renal cortex. The right cortex measures 1.4 cm. There is no demonstrated renal mass or cyst. There is no right hydronephrosis. US/Liver IMPRESSION: Fatty infiltration of the liver. Electronically Signed: Castillo Perales MD at 15:22 EDT ,
== END | disposition home or self-care (01) ==
LOC: US 08:48
PROVIDERS: PCP Internal Medicine; Referring Provider Nurse Practitioner; Visit Provider Nurse Practitioner
DX: R79.89 Other specified abnormal findings of blood chemistry (principal)
CPT/HCPCS: 76705

== ENCOUNTER → 2024-11-22 | Outpatient (CLI) | payer OTHER, SELFPAY ==
--- OUTSIDE RECORDS SUMMARY | 2024-11-22 12:01 | XMS RPT_ITS | CCD ---
Author Organization [facility] Team Providers Care [employer] Mechanic Name Role Phone Dr. Darin Sharma Primary Care Provider Dr. Darin Sharma Referring Provider Dr. Zandra Reeder Attending Provider Dr. Meghan Garcia Emergency Provider Dr. Gael Chaves Attending Provider Dr. Lenin Neri Attending Provider Dr. Gael Chaves Admit Provider Dr. Caridad Martinez Attending Provider Dr. Caridad Martinez Other Provider Dr. Dharmesh Bonilla Attending Provider Dr. Kyle Hatfield Attending Provider Dr. Dharmesh Bonilla Referring Provider Dr. Darin Sharma Primary Care Provider Dr. Darin Sharma Referring Provider Dr. Zandra Reeder Attending Provider Dr. Dharmesh Bonilla Attending Provider Dr. Kyle Hatfield Attending Provider Dr. Darin Sharma Primary Care Provider Dr. Darin Sharma Referring Provider Dr. Alirio Byrd Attending Provider Dr. Alirio Byrd Other Provider Dr. Darin Sharma Primary Care Provider Dr. Alirio Byrd Attending Provider Dr. Alirio Byrd Referring Provider Dr. Alirio Byrd Other Provider Dr. Darin Sharma Referring Provider Dr. Washington Arzate Primary Care Provider Dr. Washington Arzate Attending Provider Dr. Darin Sharma Primary Care Provider Dr. Alirio Byrd Attending Provider Washington Arzate MD Primary Care Provider [phone] Huey, Washington Primary Care Unavailable Huey, Washington Referring Unavailable Ferullo, Nanci Attending Unavailable Ferullo, Nanci Referring Unavailable Huey, Washington Primary Care Unavailable Ferullo, Nanci Attending Unavailable Huey, Washington Primary Care Unavailable Ferullo, Nanci Attending Unavailable Ferullo, Nanci Referring Unavailable Grafton, Washington Primary Care Unavailable Huey, Washington Attending Unavailable Huey, Washington Referring Unavailable ABEREGGCAPO P Referring Unavailable HUEY, WASHINGTON G Primary Care Unavailable HUEY, WASHINGTON G Primary Care Unavailable CLUTTER, ENZO Referring Unavailable HUEY, WASHINGTON G Primary Care Unavailable HUEY, WASHINGTON G Primary Care Unavailable Huey JOAQUIN, Dr. Dewitt Primary Care Provider [phone] Dr. Washington Arzate MD Attending Provider Dr. Washington Arzate MD Referring Provider Allergies Allergy Classification Reported Allergen(s) Allergy Type Date of Onset Reaction(s) Facility (7 sources) Sugammadex Drug Allergy 2 Low blood pressure [facility] (1 source) Sugammadex Drug Allergy 5 [facility] Repository Medications Current Medications Medication Drug Class(es) Dates Sig (Normalized) Sig (Original) [id number] 200 actuat albuterol 0.09 mg/actuat metered dose inhaler (11 sources) beta2-Adrenergic Agonist Start: 05-07-2024 End: 06-06-2024 take 2 puff(s) by inhalation every four hours as needed for wheezing albuterol HFA (PROVENTIL HFA, VENTOLIN HFA) 90 mcg/actuation inhaler Indications: Viral illness Inhale 2 Puffs as instructed every 4 hours as needed for wheezing/shortnes s of breath. 1 Each 05/07/2024 Active Start: 05-24-2022 Albuterol Sulf ate 90 mcg/actuation HFA aerosol inhaler Active 2 NMA INHALATION Q4H as needed for shortness of breath or wheezing 8.5 3 May 24, 2022 1:00am administer with spacer Start: 05-24-2022 take 1 puff(s) by in halation every four hours Albuterol Sulfate Active 2 PUFF INHALATION Q4H 8.5 May 24, 2022 1:00am administer with spacer Start: 06-13-2021 take 2 puff(s) by in halation every four hours as needed albuterol HFA (PROAIR HFA) 90 mcg/actuation inhaler Inhale 2 Puffs as instructed every 4 hours as needed. 18 g 06/13/2021 Active amLODIPine 5 mg oral tablet (20 sources) Dihydropyridine Calcium Channel Jasmeet Start: 05-24-2022 End: 10-04-2024 take 1 tablet by mouth once daily Amlodipine 5 mg tablet Active 5 mg PO DAILY 90 0 October 04, 2024 2:49pm Start: 01-05-2016 End: 05-21-2021 take 1 tablet by mouth once daily Amlodipine 5 mg tablet Discontinued 5 mg PO DAILY December 09, 2020 2:58pm May 21, 2021 2:08pm BP aspirin 81 mg oral tablet (4 sources) Platelet Aggregation Inhibitor, Nonsteroidal Anti-inflammatory Drug Aspirin 81 mg Tab Take 81 mg by mouth. Active atorvastatin 20 mg oral tablet (20 sources) HMG-CoA Reductase Inhibitor Start: 05-06-19 End: 10-05-19 take 1 tablet by mouth once daily Atorvastatin 20 mg tablet Active 20 mg PO DAILY 90 0 October 04, 2024 2:49pm CHOLESTEROL Start: 01-06-2016 End: 05-06-2021 take 2 tablets by mouth once daily Atorvastatin 20 MG tablet Discontinued 40 mg PO DAILY 0 0 January 06, 2016 9:01am May 06, 2021 3:50pm Start: 01-06-2016 End: 05-06-2021 take 40 mg by mouth once daily Atorvastatin Discontinu ed 40 MG PO DAILY 0 January 06, 2016 9:01am May 06, 2021 3:50pm Start: 01-05-2016 End: 01-06-2016 take 1 tablet by mouth once daily Atorvastatin 20 MG tablet Discontinued 20 mg PO DAILY January 05, 2016 12:00am January 06, 2016 9:01am benzonatate 100 mg oral capsule (5 sources) Non-narcotic Antitussive Start: 06-13-2021 End: 05-14-2024 benzonatate (TESSALON PERLE) 100 mg capsule Take 1-2 capsules tid prn, no more than 6 in 24 hours. 30 capsule 06/13/2021 Active DOCOSAHEXANOIC ACID/EPA (FISH OIL ORAL) (4 sources) DOCOSAHEXANOIC ACID/EPA (FISH OIL ORAL) Take by mouth. Active ERGOCALCIFEROL, VITAMIN D2, (VITAMIN D ORAL) (4 sources) ERGOCALCIFEROL, VITAMIN D2, (VITAMIN D ORAL) Take by mouth. Active Inhalational Spacing Device (1 source) Start: 05-07-2024 End: 05-07-2024 Inhalational Spacing Device Indications: Viral illness 1 Device one time only for 1 dose. 1 Each 05/07/2024 05/07/2024 Active losartan potassium 100 mg oral tablet (20 sources) Angiotensin 2 Receptor Jasmeet Start: 09-27-2022 End: 10-04-2024 take 1 tablet by mouth once daily Losartan 100 mg tablet Active 100 mg PO DAILY 90 0 October 04, 2024 2:49pm Start: 05-21-2021 End: 09-27-2022 take 1 tablet by mouth once daily Losartan 50 mg tablet Discontinued 50 mg PO DAILY May 21, 2021 1:00am September 27, 2022 1:23pm Start: 01-05-2016 End: 05-21-2021 take 1 tablet by mouth once daily Losartan 100 MG tablet Discontinued 100 mg PO DAILY January 05, 2016 12:00am May 21, 2021 2:08pm BP PARoxetine hydrochloride 40 mg oral tablet (20 sources) Serotonin Reuptake Inhibitor Start: 01-05-2016 End: 10-04-2024 take 1 tablet by mouth once daily Paroxetine Hcl 40 mg tablet Active 40 mg PO DAILY 90 0 October 04, 2024 2:49pm DEPRESSION take 1 tablet by mouth once christina y PARoxetine (PAXIL) 20 mg tablet Take 20 mg by mouth once daily. Active predniSONE 10 mg oral tablet (3 sources) Start: 07-01-2024 End: 07-10-2024 predniSONE (DELTASONE) 10 mg tablet Take 4 tabs daily for 3 days, then 2 tabs daily for 3 days, then 1 tab daily for 3 days with food. 21 tablet 07/01/2024 07/10/2024 Active Start: 05-07-2024 End: 05-12-2024 take 1 tablet by mouth twice daily predniSONE (DELTASONE) 20 mg tablet Indications: Viral illness Take 1 tablet by mouth two times a day for 5 days. 10 tablet 05/07/2024 05/12/2024 Active Start: 12-01-2022 End: 05-23-2023 take 2 tablets by mouth once Prednisone 20 mg tablet Discontinued 40 mg PO ONCE 2 0 December 01, 2022 12:00am May 23, 2023 4:19pm Completed/Discontinued Medications Medication Drug Class(es) Dates Sig (Normalized) Sig (Original) acetaminophen 325 mg / HYDROcodone bitartrate 5 mg oral tablet (14 sources) Opioid Agonist Start: 06-13-2021 End: 09-03-2021 Hydrocodone-Acetami nophen 5-325 mg tablet Discontinued 1 {tbl} PO EVERY 6 HOURS as needed for pain 10 3 0 June 13, 2021 September 03, 2021 1:03pm Epiploic appendagitis Other specified diseases of intestine Start: 06-13-2021 End: 09-03-2021 take 1 tablet by mouth every six hours Hydrocodone-Acetaminophen Discontinued 1 TABLET PO EVERY 6 HOURS 10 3 June 13, 2021 September 03, 2021 1:03pm Start: 01-06-2021 End: 01-16-2021 Hydrocodone-Acetaminophen 7. 5-325 mg tablet Discontinued 1 {tbl} PO EVERY 6 HOURS as needed for pain 40 10 0 January 06, 2021 January 15, 2021 12:00am January 16, 2021 12:01am Herniated nucleus pulposus, cervical Other cervical disc displacement, unspecified cervical region Start: 01-06-2021 End: 01-16-2021 take 1 tablet by mouth every six hours Hydrocodone-Acetaminophen Discontinued 1 TABLET PO EVERY 6 HOURS 40 10 January 06, 2021 January 16, 2021 12:01am amoxicillin 500 mg / clavulanate 125 mg oral tablet (2 sources) Penicillin-class Antibacterial Start: 05-21-2024 End: 11-21-2024 Amoxicillin-Pot Clavulanate (Augmentin) 500-125 mg tablet Discontinued 1 {tbl} PO Q12H 14 0 May 21, 2024 1:00am November 21, 2024 11:03am Start: 12-01-2022 End: 05-23-2023 Amoxicillin-Pot Clavulanate (Augmentin) 500-125 mg tablet Discontinued 1 {tbl} PO Q12H 20 0 December 01, 2022 12:00am May 23, 2023 4:19pm ascorbic acid 500 mg oral tablet (7 sources) Vitamin C Start: 05-06-2021 End: 09-03-2021 take 1 tablet by mouth once daily Ascorbic Acid (Vitamin C) (Vitamin C) 500 mg Tablet Discontinued 500 mg PO DAILY May 06, 2021 1:00am September 03, 2021 1:03pm SUPPLEMENT cholecalciferol 0.05 mg oral capsule (14 sources) Vitamin D Start: 05-06-2021 End: 09-03-2021 take 1 capsule by mouth once daily Cholecalciferol (Vitamin D3) (Vitamin D3) 50 mcg (2,000 unit) Capsule Discontinued 50 ug PO DAILY May 06, 2021 1:00am September 03, 2021 1:03pm SUPPLEMENT Start: 03-15-2018 End: 12-09-2020 take 1 capsule by mouth once daily Cholecalciferol (Vitamin D3) 1,000 UNIT capsule Discontinued 1000 U PO DAILY March 15, 2018 1:00am December 09, 2020 2:57pm mupirocin 0.02 mg/mg topical ointment (7 sources) RNA Synthetase Inhibitor Antibacterial Start: 01-01-2021 End: 01-06-2021 Mupirocin 2 % ointment Discontinued 0 TOPICAL THREE TIMES A DAY 15 5 0 January 01, 2021 12:00am January 05, 2021 12:00am January 06, 2021 12:01am one application, pea size amount into each nares topical three times a day; for five days Khpym-9g-Dzm-Epa-Fis h Oil (6 sources) Start: 01-05-2016 End: 03-14-2019 Lsvos-1j-Mpm-Epa-Fish Oil Discontinued 1 EACH PO DAILY January 05, 2016 12:28am March 14, 2019 1:51pm Start: 01-05-2016 End: 03-14-2019 Ydprg-9d-Awy-Epa-Fish Oil Di scontinued 1 EACH PO DAILY January 05, 2016 12:00am March 14, 2019 1:51pm Start: 01-05-2016 End: 03-14-2019 Kfkye-6c-Eeb-Epa-Fish Oil Di scontinued 1 EACH PO DAILY January 04, 2016 11:00pm March 14, 2019 12:51pm Znvxh-9r-Pda-Epa-Fish Oil 1 EACH capsule (1 source) Start: 01-05-2016 End: 03-14-2019 take 1 capsule by mouth once daily Joejp-0z-Xwv-Epa-Fish Oil 1 EACH capsule Discontinued 1 NMA PO DAILY January 05, 2016 12:00am March 14, 2019 1:51pm ondansetron 4 mg disintegrating oral tablet (7 sources) Serotonin-3 Receptor Antagonist Start: 06-13-2021 End: 09-03-2021 take 1 tablet by mouth every eight hours as needed for nausea and vomiting Ondansetron 4 mg tablet,disintegrating Discontinued 4 mg PO Q8H as needed for nausea and vomiting June 13, 2021 1:00am September 03, 2021 1:03pm Zinc (7 sources) Start: 05-06-2021 End: 09-03-2021 take 50 mg by mouth once daily Zinc Discontinued 50 MG PO DAILY May 06, 2021 3:14pm September 03, 2021 1:03pm Start: 05-06-2021 take 50 mg by mouth once daily Zinc Active 50 MG PO DAILY May 06, 2021 3:14pm Start: 05-06-2021 End: 09-03-2021 take 1 tablet by mouth once daily Zinc 50 mg Tablet Discontinued 50 mg PO DAILY May 06, 2021 1:00am September 03, 2021 1:03pm SUPPLEMENT Start: 05-06-2021 End: 09-03-2021 take 50 mg by mouth once daily Zinc Discontinued 50 MG PO DAILY May 06, 2021 1:00am September 03, 2021 1:03pm Start: 05-06-2021 End: 09-03-2021 take 50 mg by mouth once daily Zinc Discontinued 50 MG PO DAILY May 06, 2021 12:00am September 03, 2021 12:03pm Problems Problem Classification Problem Date Documented Da te Episodic/Chronic Administrative/social admission (2 sources) Persons encountering health services in other specified circumstances; Translations: [Other reasons for seeking consultation] 09-27-2022 Episodic Anxiety disorders (4 sources) Anxiety disorder, unspecified; Translations: [Anxiety state, unspecified] 09-27-2022 Chronic Asthma (10 sources) Asthma; Translations: [Unspecified asthma, uncomplicated] 06-28-2022 Chronic Disorders of lipid metabolism (4 sources) Mixed hyperlipidemia; Translations: [Mixed hyperlipidemia] 09-27-2022 Chronic Essential hypertension (11 sources) Benign essential hypertension; Translations: [Essential (primary) hypertension] Onset: 11-21-2023 03-14-2019 Chronic Immunizations and screening for infectious disease (2 sources) Encounter for immunization; Translations: [Need for prophylactic vaccination and inoculation against unspecified single disease] 09-27-2022 Episodic Nonspecific chest pain (7 sources) Chest pain; Translations: [Chest pain, unspecified] 01-05-2016 Episodic Other acquired deformities (7 sources) Scoliosis of lumbar spine; Translations: [Scoliosis, unspecified] 06-01-2021 Chronic Other acquired deformities (4 sources) Scoliosis deformity of spine; Translations: [Scoliosis, unspecified] 12-21-2017 Chronic Other acquired deformities (13 sources) Scoliosis, unspecified; Translations: [Scoliosis [and kyphoscoliosis], idiopathic] Chronic Other bone disease and musculoskeletal deformities (20 sources) Segmental and somatic dysfunction; Translations: [Segmental and somatic dysfunction of cervical region] 10-15-2019 Episodic Other bone disease and musculoskeletal deformities (3 sources) Segmental and somatic dysfunction of cervical region; Translations: [Nonallopathic lesions, cervical region] Episodic Other bone disease and musculoskeletal deformities (13 sources) Segmental and somatic dysfunction of lumbar region; Translations: [Nonallopathic lesions, lumbar region] Episodic Other bone disease and musculoskeletal deformities (13 sources) Segmental and somatic dysfunction of thoracic region; Translations: [Nonallopathic lesions, thoracic region] Episodic Other bone disease and musculoskeletal deformities (10 sources) Segmental and somatic dysfunction of pelvic region; Translations: [Nonallopathic lesions, pelvic region] Episodic Other connective tissue disease (14 sources) History of cervical spine fusion; Translations: [Arthrodesis status] 06-01-2021 Episodic Other connective tissue disease (13 sources) Arthrodesis status; Translations: [Arthrodesis status] Episodic Other gastrointestinal disorders (7 sources) Epiploic appendagitis; Translations: [Other specified diseases of intestine] 06-21-2021 Episodic Other liver diseases (1 source) Steatosis of liver; Translations: [Fatty (change of) liver, not elsewhere classified] 11-21-2024 Chronic Other lower respiratory disease (2 sources) Cough; Translations: [Acute cough] 07-01-2024 Episodic Other non-traumatic joint disorders (3 sources) Pain in right knee; Translations: [Pain in joint, lower leg] 09-27-2022 Episodic Other nutritional; endocrine; and metabolic disorders (11 sources) Body mass index 30+ - obesity; Translations: [Body mass index (BMI) 30.0-30.9, adult] 05-06-2021 Chronic Other screening for suspected conditions (not mental disorders or infectious disease) (8 sources) CT of chest abnormal; Translations: [Abnormal findings on diagnostic imaging of other specified body structures] 05-24-2022 Chronic Comment on above: lung nodules Other screening for suspected conditions (not mental disorders or infectious disease) (6 sources) Encounter for screening for malignant neoplasm of colon; Translations: [Special screening for malignant neoplasms of colon] Onset: 11-21-2023 09-27-2022 Episodic Other upper respiratory disease (3 sources) Seasonal allergy; Translations: [Other seasonal allergic rhinitis] 09-27-2022 Chronic Residual codes; unclassified (4 sources) Obstructive sleep apnea syndrome; Translations: [Obstructive sleep apnea (adult) (pediatric)] 09-27-2022 Chronic Residual codes; unclassified (2 sources) Obstructive sleep apnea (adult) (pediatric); Translations: [Obstructive sleep apnea (adult)(pediatric)] 09-27-2022 Chronic Residual codes; unclassified (1 source) Previous foreign travel ++; Translations: [Other specified health status] 05-07-2024 Episodic Screening and history of mental health and substance abuse codes (7 sources) Ex-smoker; Translations: [Personal history of nicotine dependence] 01-05-2016 Episodic Spondylosis; intervertebral disc disorders; other back problems (8 sources) Herniation of nucleus pulposus; Translations: [Other cervical disc displacement, unspecified cervical region] Chronic Spondylosis; intervertebral disc disorders; other back problems (20 sources) Lumbar radiculitis; Translations: [Radiculopathy, lumbar region] 12-21-2017 Episodic Unclassified (1 source) Acute cough; Translations: [Acute cough] Onset: 07-01-2024 Viral infection (1 source) Viral disease; Translations: [Viral infection, unspecified] 05-07-2024 Episodic Results Test Name Value Interpretation Reference Range Facility CNOVon 07-01-2024 CNOV Office Visit ([facility] ) SALEEM HOBBS ([id number]) 1965 M Date Time Provider Department 07/01/24 12:15 PM [facility] During your visit today, we recorded the following information about you: Temperature Pulse Respiration Blood pressure 98.9 degrees 102/minute 16/minute 122/80 Weight 111 kg Capo Peoples PA 07/01/2024 11:45 AM Signed This note was created using [employer]. Subjective Saleem Hobbs is a 58 year old male. HPI 58-year-old male presents for cough. Patient has had a cough for the past week. He states that he feels congested in his chest. Occasionally he coughs up some phlegm. No shortness of breath or chest pain. No history of COPD or asthma. States he has been given an inhaler in the past when he was sick, has used this, but it has not helped with symptoms. Reports nasal congestion about a week ago, but that improved. Patient states he had fevers, chills last week, but those improved. The only symptom that is lingering is cough which seems to be worsening. No other complaint. History reviewed. No pertinent past medical history. No past surgical history on file. ALLERGIES Patient has no known allergies. MEDICATIONS albuterol HFA (PROAIR HFA) 90 mcg/actuation inhaler Inhale 2 Puffs as instructed every 4 hours as needed. losartan 100 mg tablet Take 100 mg by mouth once daily. amLODIPine (NORVASC) 5 mg tablet Take by mouth once daily. atorvastatin (LIPITOR) 20 mg tablet Take 20 mg by mouth once daily. PARoxetine (PAXIL) 20 mg tablet Take 20 mg by mouth once daily. albuterol HFA (PROVENTIL HFA, VENTOLIN HFA) 90 mcg/actuation inhaler Inhale 2 Puffs as instructed every 4 hours as needed for wheezing/shortness of breath. benzonatate (TESSALON PERLE) 100 mg capsule Take 1-2 capsules tid prn, no more than 6 in 24 hours. (Patient not taking: Reported on 05/07/2024) Aspirin 81 mg Tab Take 81 mg by mouth. (Patient not taking: Reported on 03/05/2021 ) DOCOSAHEXANOIC ACID/EPA (FISH OIL ORAL) Take by mouth. (Patient not taking: Reported on 03/05/2021 ) ERGOCALCIFEROL, VITAMIN D2, (VITAMIN D ORAL) Take by mouth. (Patient not taking: Reported on 03/05/2021 ) No family history on file. Social History Tobacco Use Smoking status: Never Smokeless tobacco: Never Review of Systems Constitutional: Negative for chills and fever. HENT: Negative for congestion and sore throat. Respiratory: Positive for cough. Negative for shortness of breath. Gastrointestinal: Negative for diarrhea and vomiting. Objective BP 122/80 Pulse 102 Temp 37.2 ?C (98.9 ?F) (Tympanic) Resp 16 Wt 111 kg (244 lb 11.4 oz) SpO2 97% Physical Exam Vitals and nursing note reviewed. Constitutional: General: He is not in acute distress. Appearance: Normal appearance. He is not toxic-appearing. HENT: Right Ear: Tympanic membrane and ear canal normal. Left Ear: Tympanic membrane and ear canal normal. Nose: Nose normal. Mouth/Throat: Mouth: Mucous membranes are moist. Eyes: Conjunctiva/sclera: Conjunctivae normal. Cardiovascular: Rate and Rhythm: Normal rate and regular rhythm. Pulmonary: Effort: Pulmonary effort is normal. Breath sounds: Wheezing (diffuse) and rhonchi (b/l lower lobes) present. Skin: General: Skin is warm and dry. Neurological: Mental Status: He is alert. Assessment and Plan ASSESSMENT/PLAN: 1. Acute cough - ICD9: 786.2, ICD10: R05.1 - XR CHEST 2V FRONTAL/LAT no acute radiographic abnormality -Suspect viral bronchitis -Rx prednisone taper -Continue inhaler -Follow-up with PCP for persistent symptoms Diagnosis and treatment plan were discussed and questions were answered to the patient's satisfaction. Pt acknowledged understanding of concepts and follow up plan. Specific signs and symptoms that would indicate the need for higher level of care were discussed in detail warranting prompt ER evaluation. ROSARIO Hauser Allergies As of Date: 07/01/2024 (No Known Allergies) Date Reviewed: 07/01/2024 Reviewed by: Nya Nino LPN - Fully Assessed Reason for Visit: Cough [28] Cmt: Cough, chest congestion, fatigue and fever x 1 week Primary Visit Diagnosis:Acute cough [R05.1] Order(s):XR CHEST 2V FRONTAL/LAT [[id number]] Order #: [id number] FUTURE predniSONE (DELTASONE) 10 mg tabletTake 4 tabs daily for 3 days, then 2 tabs daily for 3 days, then 1 tab daily for 3 days with food.Disp: 21 tabletRfl: 0 Prescriptions as of 07/01/2024 - predniSONE (DELTASONE) 10 mg tablet Take 4 tabs daily for 3 days, then 2 tabs daily for 3 days, then 1 tab daily for 3 days with food. - albuterol HFA (PROVENTIL HFA, VENTOLIN HFA) 90 mcg/actuation inhaler Inhale 2 Puffs as instructed every 4 hours as needed for wheezing/shortness of breath. - albuterol HFA (PROAIR HFA) 90 mcg/actuation inhaler Inhale 2 Puffs as instructed every 4 hours as (more content not included)... Normal [facility] XR CHEST 2V FRONTAL/LATon XR CHEST 2V FRONTAL/LAT * * *Final Report* * * DATE OF EXAM: Jul 01 2024 11:30AM WOX [id number] - XR CHEST 2V FRONTAL/LAT / PROCEDURE REASON: Acute cough * * * * Physician Interpretation * * * * EXAMINATION: CHEST RADIOGRAPH (2 VIEW FRONTAL and LATERAL) CLINICAL HISTORY: Acute cough MQ: XC2_6 EXAM DATE/TIME: 07/01/2024 11:30 AM COMPARISON: Chest x-ray 05/07/2024 RESULT: Lines, tubes, and devices: None. Lungs and pleura: No consolidation. No lung mass. No pleural effusion. No pneumothorax. Cardiomediastinal silhouette: Normal cardiomediastinal silhouette. Bones and soft tissues: Unremarkable. IMPRESSION: No acute radiographic abnormality. Law Firm Partner: [employer] Transcribe Date/Time: Jul 01 2024 11:36A Dictated by : JAZMYN ECKERT MD This examination was interpreted and the report reviewed and electronically signed by: JAZMYN ECKERT MD on Jul 01 2024 11:37AM EST [id number] Normal [facility] XR Chest PA and Lateralon IMPRESSION: No acute radiographic abnormality. Law Firm Partner: [facility] Transcribe Date/Time: Jul 01 2024 11:36A Dictated by : JAZMYN ECKERT MD This examination was interpreted and the report reviewed and electronically signed by: JAZMYN ECKERT MD on Jul 01 2024 11:37AM EST DIVISION OF RADIOLOGY * * *Final Report* * * DATE OF EXAM: Jul 01 2024 11:30AM WOX [id number] - XR CHEST 2V FRONTAL/LAT / PROCEDURE REASON: Acute cough * * * * Physician Interpretation * * * * EXAMINATION: CHEST RADIOGRAPH (2 VIEW FRONTAL & LATERAL) CLINICAL HISTORY: Acute cough MQ: XC2_6 EXAM DATE/TIME: 07/01/2024 11:30 AM COMPARISON: Chest x-ray 05/07/2024 RESULT: Lines, tubes, and devices: None. Lungs and pleura: No consolidation. No lung mass. No pleural effusion. No pneumothorax. Cardiomediastinal silhouette: Normal cardiomediastinal silhouette. Bones and soft tissues: Unremarkable. DIVISION OF RADIOLOGY Provider, [facility] - 07/01/2024 * * *Final Report* * * DATE OF EXAM: Jul 01 2024 11:30AM WOX [id number] - XR CHEST 2V FRONTAL/LAT / PROCEDURE REASON: Acute cough * * * * Physician Interpretation * * * * EXAMINATION: CHEST RADIOGRAPH (2 VIEW FRONTAL & LATERAL) CLINICAL HISTORY: Acute cough MQ: XC2_6 EXAM DATE/TIME: 07/01/2024 11:30 AM COMPARISON: Chest x-ray 05/07/2024 RESULT: Lines, tubes, and devices: None. Lungs and pleura: No consolidation. No lung mass. No pleural effusion. No pneumothorax. Cardiomediastinal silhouette: Normal cardiomediastinal silhouette. Bones and soft tissues: Unremarkable. IMPRESSION IMPRESSION: No acute radiographic abnormality. Law Firm Partner: [employer] Transcribe Date/Time: Jul 01 2024 11:36A Dictated by : JAZMYN ECKERT MD This examination was interpreted and the report reviewed and electronically signed by: JAZMYN ECKERT MD on Jul 01 2024 11:37AM EST [facility] Radiology Study observation (narrative) [facility] XR Chest PA and LateralOrder ed By: Ccf Provider on 07-01-2024 [facility] Internal Medicine Office Vis iton 05-20-2024 Internal Medicine Office Visit [id number] [place] [address] OFFICE VISIT Date of Service: 05/21/24 MR#: [id number] Acct: [id number] Name: SALEEM HOBBS Rep #: [id number] : 1965 Provider: Dr. Washington mills MD Age/Sex: 58/M Location: [facility] Status: Signed Intake Vital Signs 11/21/23 15:32 11/21/23 15:58 05/21/24 14:58 Height 6 ft 2 in 6 ft 2 in 6 ft 2 in Weight: 248 lb BMI 31.8 BP 126/62 H Blood Pressure Location Lt brachial Position Sitting Respiration 16 Pulse 75 Pulse Source Monitor Temp 97.0 F L Temp Source Temporal Pulse Oximetry (%) 98 Oxygen Delivery Method room air Intake Visit Reasons: 6 M FU Chief Complaint: follow up Order Manager Required: No Accompanied by: Self Is patient in pain?: No Allergies sugammadex Adverse Reaction (Severe, Verified 05/21/24 14:55) Low blood pressure Medications ???Medication ???Instructions ???Recorded ???Confirmed ???Type albuterol sulfate 90 mcg/actuation 2 puff inhalation Q4H PRN 05/24/22 05/21/24 Rx aerosol inhaler shortness of breath or wheezing #8.5 grams amlodipine 5 mg tablet 5 mg PO DAILY #90 tabs 03/18/24 05/21/24 Rx atorvastatin 20 mg tablet 20 mg PO DAILY CHOLESTEROL #90 tabs 03/18/24 05/21/24 Rx losartan 100 mg tablet 100 mg PO DAILY #90 tabs 03/18/24 05/21/24 Rx paroxetine HCl 40 mg tablet 40 mg PO DAILY DEPRESSION #90 tabs 03/18/24 05/21/24 Rx amoxicillin 500 mg-potassium 1 tab PO Q12H #14 tabs 05/21/24 05/21/24 Rx clavulanate 125 mg tablet (Augmentin) PFSH Medical History Seasonal allergies COVID-19 Contusion of back Syncope Wears glasses Wears hearing aid Anxiety Alcohol use History of steroid therapy Arthritis Injury of back CPAP (continuous positive airway pressure) dependence Sleep apnea History of stress test Segmental and somatic dysfunction of pelvic region Hypertension Bilateral headaches Former smoker Benign essential HTN Surgical History Hx of fusion of cervical spine Family History Grandfather Alcoholism Father History of blood transfusion Diabetes Myocardial infarction Heart disease Hypertension Melanoma Grandmother Breast cancer Cancer Brother High cholesterol Mother Osteoporosis Other Arthritis Social History (Updated 05/21/24 @ 15:[address] 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 He is up to date on his routine blood work and screening. He does want his flu shot. He doesn't smoke and does not need refills today. He reports he is eating somewhat healthy and is trying to stay active. He does check his blood pressure at home occasionally. He was having dizzy spells back in December and states his blood pressure was low around that time. He hasn't had any further symptoms since then. He is taking his medication as prescribed without problems. He does try to monitor his salt intake somewhat. The patient has a history of mild asthma. He reports he hasn't had any problems this year. He states he hasn't needed his rescue inhaler at all. He hasn't had any major flare ups recently. He hasn't been following with pulmonology. The patient has a history of sleep apnea. He reports he did have a CPAP, but states he couldn't get it to fit right, so he stopped using it. He takes his paxil for both depression and anxiety. He reports he is doing well with it. He states he notices when he misses a dose. He denies any current concerns about depression or anxiety nor any thoughts of suicide. He reports his back has been doing much better since caring for his knee pain, however, and hasn't needed any further back injections. He follows with pain management. The patient reports he was traveling in [place] over [place]. He reports upon returning, he reports a few days later he started having symptoms. He reports his symptoms felt similar to his previous COVID reporting he was having chills, cough, headache. He never checked himself, however. He went to the urgent care about 5 days later and was tested for both the flu/COVID which were negative. He was prescribed a course of prednisone and tessalon perles. He was also taking (more content not included)... Normal [facility] CNOVon 05-07-2024 CNOV Office Visit ([facility] ) SALEEM HOBBS ([id number]) 1965 M Date Time Provider Department 05/07/24 9:30 AM ENZO BOYCE [facility] During your visit today, we recorded the following information about you: Temperature Pulse Respiration Blood pressure 100.2 degrees 103/minute 16/minute 132/80 Weight 110.8 kg Enzo Boyce PA-C 05/07/2024 10:19 AM Signed This note was created using [email or web address]. Subjective Saleem Hobbs is a 58 year old male. Patient is a 58-year-old male complains of fever, chills, myalgia and cough that he has been experiencing for the past 5 days. Patient reports no congestion, sinus pressure or sore throat, although he does report ear pressure. Patient and his recently returned from [facility] via airline. Patient states that he did test positive for COVID-19 last month and had recovered well from that episode. Patient has no history of asthma or COPD and does not smoke. Cough Associated symptoms include chills and myalgias. Review of Systems Constitutional: Positive for chills and fever. Respiratory: Positive for cough. Musculoskeletal: Positive for myalgias. All other systems reviewed and are negative. Objective BP 132/80 Pulse 103 Temp 37.9 ?C (100.2 ?F) (Tympanic) Resp 16 Wt 110.8 kg (244 lb 4.3 oz) SpO2 97% Physical Exam Vitals and nursing note reviewed. Constitutional: Appearance: Normal appearance. He is normal weight. HENT: Head: Normocephalic and atraumatic. Right Ear: Tympanic membrane, ear canal and external ear normal. Left Ear: Tympanic membrane, ear canal and external ear normal. Nose: Nose normal. Mouth/Throat: Mouth: Mucous membranes are moist. Pharynx: Oropharynx is clear. Eyes: Extraocular Movements: Extraocular movements intact. Conjunctiva/sclera: Conjunctivae normal. Pupils: Pupils are equal, round, and reactive to light. Cardiovascular: Rate and Rhythm: Normal rate and regular rhythm. Pulses: Normal pulses. Heart sounds: Normal heart sounds. Pulmonary: Effort: Pulmonary effort is normal. Breath sounds: Normal breath sounds. Musculoskeletal: Cervical back: Normal range of motion and neck supple. Skin: General: Skin is warm and dry. Capillary Refill: Capillary refill takes less than 2 seconds. Neurological: General: No focal deficit present. Mental Status: He is alert and oriented to person, place, and time. Psychiatric: Mood and Affect: Mood normal. Behavior: Behavior normal. Thought Content: Thought content normal. Judgment: Judgment normal. Assessment and Plan Unremarkable physical exam findings as noted above. Influenza A/B/SARS-CoV-2/RSV PCR was ordered. Chest x-ray is negative for acute findings as reported by the radiologist. Patient was advised the results of the PCR will be received tomorrow and he will be contacted with any positive findings. Patient was provided with prescriptions for prednisone 20 mg, Tessalon 100 mg and an albuterol MDI. Supportive care instructions were discussed and patient verbalizes good understanding of same. CLINICAL IMPRESSION: Viral Illness; Recent Foreign Travel ASSESSMENT/PLAN: 1. Viral illness - ICD9: 079.99, ICD10: B34.9 (primary diagnosis) - COVID AND INFLUENZA A/B AND RSV PCR, ROUTINE - XR CHEST 2V FRONTAL/LAT - PREDNISONE 20 MG TABLET - BENZONATATE 100 MG CAPSULE - ALBUTEROL SULFATE HFA 90 MCG/ACTUATION AEROSOL INHALER - INHALATIONAL SPACING DEVICE 2. Recent foreign travel - ICD9: V49.89, ICD10: Z78.9 Enzo Boyce PA-C Allergies As of Date: 05/07/2024 (No Known Allergies) Date Reviewed: 06/13/2021 Reviewed by: Chantal Monsalve MA - Fully Assessed Reason for Visit: Cough [28] Cmt: Cough, ST, chills and BRAY x 5 days Primary Visit Diagnosis:Viral illness [B34.9] Other Visit Diagnosis:Recent foreign travel [Z78.9] Order(s):COVID AND INFLUENZA A/B AND RSV PCR, ROUTINE [SQCVFLRS] Order #: [id number] #:[id number] XR CHEST 2V FRONTAL/LAT [[id number]] Order #: [id number] #:[id number] predniSONE (DELTASONE) 20 mg tabletTake 1 tablet by mouth two times a day for 5 days.Disp: 10 tabletRfl: 0 benzonatate (TESSALON PERLE) 100 mg capsuleTake 1 capsule by mouth three times a day as needed for cough for up to 7 days.Disp: 21 capsuleRfl: 0 albuterol HFA (PROVENTIL HFA, VENTOLIN HFA) 90 mcg/actuation inhalerInhale 2 Puffs as instructed every 4 hours as needed for wheezing/shortness of breath.Disp: 1 EachRfl: 0 Inhalational Spacing Device1 Device one time only for 1 dose.Disp: 1 EachRfl: 0 Prescriptions as of 05/07/2024 - predniSONE (DELTASONE) 20 mg tablet Take 1 tablet by mouth two times a day for 5 days. - benzonatate (TESSALON PERLE) 100 mg capsule Take 1 capsule by mouth three times a day as needed for cough for up to 7 days. - albuterol HFA (PROVENTIL HFA, VENTOLIN HFA) 90 mcg/actuatio (more content not included)... Normal [facility] COVID AND INFLUENZA A/B AND RSV PCR, ROUTINEon 05-07-2024 SARS-CoV-2 (COVID-19) RNA JAMES+probe Ql (Unsp spec) SARS-COV-2 (AGENT OF COVID-19) RNA: Not detected INFLUENZA A RNA: Not detected INFLUENZA B RNA: Not detected RESPIRATORY SYNCYTIAL VIRUS (RSV) RNA: Not detected Normal [facility] Comment on above: Performed By: #### C VFLRS #### [facility] CLIA [id number] [address] [place] [address] [place] XR CHEST 2V FRONTAL/LATon XR CHEST 2V FRONTAL/LAT * * *Final Report* * * DATE OF EXAM: May 07 2024 10:01AM WOX 5291 - XR CHEST 2V FRONTAL/LAT / PROCEDURE REASON: Viral illness * * * * Physician Interpretation * * * * EXAMINATION: CHEST RADIOGRAPH (2 VIEW FRONTAL and LATERAL) CLINICAL HISTORY: Viral illness MQ: XC2_6 EXAM DATE/TIME: 05/07/2024 10:01 AM COMPARISON: No relevant prior studies available. RESULT: Lines, tubes, and devices: None. Lungs and pleura: No consolidation. No lung mass. No pleural effusion. No pneumothorax. Cardiomediastinal silhouette: Normal cardiomediastinal silhouette. Bones and soft tissues: Status post cervical fusion. Mild degenerative changes. IMPRESSION: No acute radiographic abnormality. Law Firm Partner: KIARRA Transcribe Date/Time: May 07 2024 10:05A Dictated by : ANA RIVERA MD This examination was interpreted and the report reviewed and electronically signed by: ANA RIVERA MD on May 07 2024 10:05AM EST [id number] Normal [facility] XR Chest PA and Lateralon IMPRESSION: No acute radiographic abnormality. Law Firm Partner: PSCB Transcribe Date/Time: May 07 2024 10:05A Dictated by : ANA RIVERA MD This examination was interpreted and the report reviewed and electronically signed by: ANA RIVERA MD on May 07 2024 10:05AM EST DIVISION OF RADIOLOGY * * *Final Report* * * DATE OF EXAM: May 07 2024 10:01AM WOX 5291 - XR CHEST 2V FRONTAL/LAT / PROCEDURE REASON: Viral illness * * * * Physician Interpretation * * * * EXAMINATION: CHEST RADIOGRAPH (2 VIEW FRONTAL & LATERAL) CLINICAL HISTORY: Viral illness MQ: XC2_6 EXAM DATE/TIME: 05/07/2024 10:01 AM COMPARISON: No relevant prior studies available. RESULT: Lines, tubes, and devices: None. Lungs and pleura: No consolidation. No lung mass. No pleural effusion. No pneumothorax. Cardiomediastinal silhouette: Normal cardiomediastinal silhouette. Bones and soft tissues: Status post cervical fusion. Mild degenerative changes. DIVISION OF RADIOLOGY Provider, [facility] - 05/07/2024 * * *Final Report* * * DATE OF EXAM: May 07 2024 10:01AM WOX 5291 - XR CHEST 2V FRONTAL/LAT / PROCEDURE REASON: Viral illness * * * * Physician Interpretation * * * * EXAMINATION: CHEST RADIOGRAPH (2 VIEW FRONTAL & LATERAL) CLINICAL HISTORY: Viral illness MQ: XC2_6 EXAM DATE/TIME: 05/07/2024 10:01 AM COMPARISON: No relevant prior studies available. RESULT: Lines, tubes, and devices: None. Lungs and pleura: No consolidation. No lung mass. No pleural effusion. No pneumothorax. Cardiomediastinal silhouette: Normal cardiomediastinal silhouette. Bones and soft tissues: Status post cervical fusion. Mild degenerative changes. IMPRESSION IMPRESSION: No acute radiographic abnormality. Law Firm Partner: KIARRA Transcribe Date/Time: May 07 2024 10:05A Dictated by : ANA RIVERA MD This examination was interpreted and the report reviewed and electronically signed by: ANA RIVERA MD on May 07 2024 10:05AM EST [facility] Radiology Study observation (narrative) [facility] XR Chest PA and LateralOrder ed By: Ccf Provider on 05-07-2024 [facility] Liveron 12-12-2023 [facility] [address] [place], [place] [address] Liver MR#: [id number] Acct: [id number] Name: SALEEM HOBBS Rep #: [id number] : 1965 M 58 From: Castillo george MD PCP: Dr. Washington Arzate MD Status: REG CLI Study: Liver Date of Exam: 12/12/23 Exam# [id number] Ordering Dr: Nanci Gipsno MITTEN SEWER-C [id number] STUDY: ABDOMINAL ULTRASOUND - RIGHT UPPER QUADRANT REASON FOR VISIT: Male, 58 years old elevated bilirubin, alk phos TECHNIQUE: Ultrasound evaluation of the right upper quadrant was performed with real-time and static burnett-scale imaging. TECHNICAL QUALITY: Limited. Examination limited by bowel gas. COMPARISON: Comparison is made with prior sonogram dated March 26, 2018. FINDINGS: Liver: The liver measures 17.8 cm. There is increased echogenicity consistent with fatty infiltration. The bile ducts are within normal limits. There is hepatic color flow. The direction of portal flow is hepatopetal. There is no demonstrated mass lesion. Gallbladder: Normal distended gallbladder. The gallbladder wall measures 2.0 mm. There is a negative sonographic Pinto''s sign. There is no pericholecystic fluid. There are no gallstones. Common Bile Duct (C.B.D.): The common bile duct measures 5.3 mm. Pancreas: There is nonvisualization of the pancreas due to overlying bowel gas. Right Kidney: Normal size of the right kidney. The right kidney measures 12 cm x 5.4 cm x 6.6 cm. Normal renal cortex. The right cortex measures 1.4 cm. There is no demonstrated renal mass or cyst. There is no right hydronephrosis. US/Liver IMPRESSION: Fatty infiltration of the liver. Electronically Signed: Castillo Perales MD at 15:22 EDT , CC: REBECCA Gipson; Dr. Washington Arzate MD Law Firm Partner: Signed Normal [facility] CBC W/Diff, Automatedon 08-0 Absolute Lymph 0.91 X10 3/uL Normal 0.83-4.51 [facility] Comment on above: Performed By: #### L 501.9910, L500.4050, L500.4100, L100.0100 #### [facility] [address] [place], [address] Absolute Neut 2.6 X10 3/uL Normal 2.0-7.7 [facility] Comment on above: Performed By: #### L 501.9910, L500.4050, L500.4100, L100.0100 #### [facility] [address] [place], [address] Basophils/100 WBC (Bld) 1.6 % High 0-1 [facility] Comment on above: Performed By: #### L 501.9910, L500.4050, L500.4100, L100.0100 #### [facility] [address] [place], [address] Eosinophils/100 WBC (Bld) 3.0 % Normal 0-5 [facility] Comment on above: Performed By: #### L 501.9910, L500.4050, L500.4100, L100.0100 #### [facility] [address], [address] Erythrocyte distribution width (RBC) [Ratio] 12.0 % Normal 11.6-14.6 [facility] Comment on above: Performed By: #### L 501.9910, L500.4050, L500.4100, L100.0100 #### [facility] [address] [place], [address] Hematocrit (Bld) [Volume fraction] 49.6 % Normal 40-54 [facility] Comment on above: Performed By: #### L 501.9910, L500.4050, L500.4100, L100.0100 #### [facility] [address] [place], [address] Hemoglobin (Bld) [Mass/Vol] 16.5 g/dL Normal 13.0-16.5 [facility] Comment on above: Performed By: #### L 501.9910, L500.4050, L500.4100, L100.0100 #### [facility] [address] [place], [address] IG% 0.200 Normal 0.0-0.9 [facility] Comment on above: Result Comment: IG% - Immature Granulocytes (promyelocytes, myelocytes and metamyelocytes) > 1% indicates that a LEFT SHIFT is Present. Performed By: #### L 501.9910, L500.4050, L500.4100, L100.0100 #### [facility] [address] [place], [address] Lymphocytes/100 WBC (Bld) 21.0 % Normal 19-41 [facility] Comment on above: Performed By: #### L 501.9910, L500.4050, L500.4100, L100.0100 #### [facility] [address] [place], [address] MCH (RBC) [Entitic mass] 29.9 pg Normal 27.0-32.0 [facility] Comment on above: Performed By: #### L 501.9910, L500.4050, L500.4100, L100.0100 #### [facility] [address] [place], [address] MCHC (RBC) [Mass/Vol] 33.3 g/dL Normal 32-36 [facility] Comment on above: Performed By: #### L 501.9910, L500.4050, L500.4100, L100.0100 #### [facility] [address] [place], [address] MCV (RBC) [Entitic vol] 90.0 fL Normal 80-94 [facility] Comment on above: Performed By: #### L 501.9910, L500.4050, L500.4100, L100.0100 #### [facility] [address] [place], [address] Monocytes/100 WBC (Bld) 13.2 % High 0-10 [facility] Comment on above: Performed By: #### L 501.9910, L500.4050, L500.4100, L100.0100 #### [facility] [address] [place], [address] Neutrophils/100 WBC (Bld) 61.0 % Normal 47-70 [facility] Comment on above: Performed By: #### L 501.9910, L500.4050, L500.4100, L100.0100 #### [facility] [address] [place], [address] Nucleated RBC (Bld) [#/Vol] 0 10*3/uL Normal 0-5 [facility] Comment on above: Performed By: #### L 501.9910, L500.4050, L500.4100, L100.0100 #### [facility] [address] [place], [address] Platelet mean volume (Bld) [Entitic vol] 10.0 fL Normal 6.2-12.0 [facility] Comment on above: Performed By: #### L 501.9910, L500.4050, L500.4100, L100.0100 #### [facility] [address] [place], [address] Platelets (Bld) [#/Vol] 288 10*3/uL Normal 150-450 [facility] Comment on above: Performed By: #### L 501.9910, L500.4050, L500.4100, L100.0100 #### [facility] [address] [place], [address] RBC (Bld) [#/Vol] 5.51 10*6/uL Normal 4.6-6.2 [facility] Comment on above: Performed By: #### L 501.9910, L500.4050, L500.4100, L100.0100 #### [facility] [address] [place], [address] RDW SD 39.9 fl Normal 35.1-43.9 [facility] Comment on above: Performed By: #### L 501.9910, L500.4050, L500.4100, L100.0100 #### [facility] [address] [place], [address] WBC (Bld) [#/Vol] 4.3 10*3/uL Low 4.4-11.0 [facility] Comment on above: Performed By: #### L 501.9910, L500.4050, L500.4100, L100.0100 #### [facility] [address] [place], [address] Comprehensive Metabolic Prof ilon 12-01-2023 Albumin [Mass/Vol] 3.9 g/dL Normal 3.2-5.0 [facility] Comment on above: Performed By: #### L 501.9910, L500.4050, L500.4100, L100.0100 #### [facility] [address] [place], [address] Albumin/Globulin [Mass ratio] 0.9 {ratio} Normal 0.9-2.4 [facility] Comment on above: Performed By: #### L 501.9910, L500.4050, L500.4100, L100.0100 #### [facility] [address] [place], [address] ALK P 202 U/L High 45-117 [facility] Comment on above: Performed By: #### L 501.9910, L500.4050, L500.4100, L100.0100 #### [facility] [address] [place], [address] ALT [Catalytic activity/Vol] 51 U/L Normal 16-61 [facility] Comment on above: Performed By: #### L 501.9910, L500.4050, L500.4100, L100.0100 #### [facility] [address] [place], [address] AST [Catalytic activity/Vol] 30 U/L Normal 15-37 [facility] Comment on above: Performed By: #### L 501.9910, L500.4050, L500.4100, L100.0100 #### [facility] [address] [place], [address] Bilirubin [Mass/Vol] 1.30 mg/dL High 0.20-1.00 [facility] Comment on above: Result Comment: For patients on eltrombopag therapy, use of Dimension [place] TBIL is not recommended. Performed By: #### L 501.9910, L500.4050, L500.4100, L100.0100 #### [facility] [address] [place], [address] BUN/CRE 12.8 RATIO Normal 10-20 [facility] Comment on above: Performed By: #### L 501.9910, L500.4050, L500.4100, L100.0100 #### [facility] [address] [place], [address] CA,Total 8.7 mg/dL Normal 8.5-10.1 [facility] Comment on above: Performed By: #### L 501.9910, L500.4050, L500.4100, L100.0100 #### [facility] [address] [place], [address] Chloride [Moles/Vol] 105 mmol/L Normal 98-107 [facility] Comment on above: Performed By: #### L 501.9910, L500.4050, L500.4100, L100.0100 #### [facility] [address] [place], [address] CO2 [Moles/Vol] 28.0 mmol/L Normal 21.0-32.0 [facility] Comment on above: Performed By: #### L 501.9910, L500.4050, L500.4100, L100.0100 #### [facility] [address] [place], [address] Creatinine [Mass/Vol] 0.94 mg/dL Normal 0.70-1.30 [facility] Comment on above: Result Comment: The validity of the calculated GFR GFRAA in patients over 70 years has not been determined. Clinical correlation is essential. Performed By: #### L 501.9910, L500.4050, L500.4100, L100.0100 #### [facility] [address] [place], [address] EST GFR - AA 106 mL/min Normal >60 [facility] Comment on above: Result Comment: Afri can [place] GFR Calc Performed By: #### L 501.9910, L500.4050, L500.4100, L100.0100 #### [facility] [address] [place], [address] GAP 5 Normal 5-15 [facility] Comment on above: Performed By: #### L 501.9910, L500.4050, L500.4100, L100.0100 #### [facility] [address] [place], [address] GFR/1.73 sq M.predicted among non-blacks MDRD (S/P/Bld) [Vol rate/Area] 88 mL/min/{1.73_m2} Normal >60 [facility] Comment on above: Result Comment: Non- GFR Calc Performed By: #### L 501.9910, L500.4050, L500.4100, L100.0100 #### [facility] [address] [place], [address] Globulin (S) [Mass/Vol] 4.5 g/dL High 2.2-4.2 [facility] Comment on above: Performed By: #### L 501.9910, L500.4050, L500.4100, L100.0100 #### [facility] [address] [place], [address] Glucose [Mass/Vol] 97 mg/dL Normal 74-106 [facility] Comment on above: Performed By: #### L 501.9910, L500.4050, L500.4100, L100.0100 #### [facility] [address] [place], [address] Potassium [Moles/Vol] 4.0 mmol/L Normal 3.5-5.1 [facility] Comment on above: Performed By: #### L 501.9910, L500.4050, L500.4100, L100.0100 #### [facility] [address] [place], [address] Sodium [Moles/Vol] 138 mmol/L Normal 136-145 [facility] Comment on above: Performed By: #### L 501.9910, L500.4050, L500.4100, L100.0100 #### [facility] [address] [place], [address] T PROT 8.4 g/dL High 6.4-8.2 [facility] Comment on above: Performed By: #### L 501.9910, L500.4050, L500.4100, L100.0100 #### [facility] [address] [place], [address] Urea nitrogen [Mass/Vol] 12 mg/dL Normal 7-18 [facility] Comment on above: Performed By: #### L 501.9910, L500.4050, L500.4100, L100.0100 #### [facility] [address] [place], [address] Lipid Profileon 12-01-2023 Cholesterol [Mass/Vol] 110 mg/dL Normal 200 [facility] Comment on above: Result Comment: <200 mg/dL Desirable 200-240 mg/dL Borderline >240 mg/dL High Risk Performed By: #### L 501.9910, L500.4050, L500.4100, L100.0100 #### [facility] [address] [place], [address] Cholesterol in HDL [Mass/Vol] 28 mg/dL Low [facility] Comment on above: Result Comment: The drugs N-Acetylcysteine and Metamizole may falsely depress this assay. Reference Range HDL <40 mg/dL Low HDL Cholesterol HDL >or= 60 mg/dL High HDL Cholesterol Performed By: #### L 501.9910, L500.4050, L500.4100, L100.0100 #### [facility] [address] [place], [address] Cholesterol in LDL [Mass/Vol] 65 mg/dL Normal 0-130 [facility] Comment on above: Performed By: #### L 501.9910, L500.4050, L500.4100, L100.0100 #### [facility] [address] [place], [address] Cholesterol in VLDL [Mass/Vol] 17 mg/dL Normal 5-40 [facility] Comment on above: Performed By: #### L 501.9910, L500.4050, L500.4100, L100.0100 #### [facility] [address] [place], [address] Triglyceride [Mass/Vol] 84 mg/dL Normal [facility] Comment on above: Result Comment: The drugs N-Acetylcysteine and Metamizole may falsely depress this assay. Serum Triglycerides Reference Interval Normal <150 mg/dL Borderline high 150 - 199 mg/dL High 200 - 499 mg/dL Very High > or = 500 mg/dL Performed By: #### L 501.9910, L500.4050, L500.4100, L100.0100 #### [facility] [address] [place], [address] PSA,Total - Annual Screenon 12-01-2023 PSA,TOT SCREEN 0.55 ng/mL Normal 0.00-4.00 [facility] Comment on above: Result Comment: This test was performed using the TPSA assay method for the [employer] chemistry system. Values obtained with different assay methods cannot be used interchangably. When changing PSA assays in the course of monitoring a patient, additional sequential testing should be carried out to confirm baseline values. Performed By: #### L 501.9910, L500.4050, L500.4100, L100.0100 #### [facility] [address] [place], [address] Internal Medicine Office Vis iton 11-21-2023 Internal Medicine Office Visit [facility] [address] [address] OFFICE VISIT Date of Service: 11/21/23 MR#: [id number] Acct: [id number] Name: SALEEM HOBBS Rep #: [id number] : 1965 Provider: REBECCA longoria Age/Sex: 58/M Location: [facility] Status: Signed Intake Vital Signs 05/23/23 15:23 11/21/23 15:32 Height 6 ft 2 in 6 ft 2 in Weight: 249 lb 4 oz 250 lb BMI 32.0 32.1 BP 134/68 H 122/80 H Blood Pressure Location Lt brachial Lt brachial Position Sitting Sitting Respiration 16 16 Pulse 82 88 Pulse Source Monitor Monitor Temp 97.0 F L 98.2 F Temp Source Temporal Temporal Pulse Oximetry (%) 99 98 Oxygen Delivery Method room air room air Intake Visit Reasons: 6 M FU Chief Complaint: follow up Order Manager Required: No Is patient in pain?: No Allergies sugammadex Adverse Reaction (Severe, Verified 11/21/23 15:23) Low blood pressure Medications ???Medication ???Instructions ???Recorded ???Confirmed ???Type albuterol sulfate 90 mcg/actuation 2 puff inhalation Q4H PRN 05/24/22 11/21/23 Rx aerosol inhaler shortness of breath or wheezing #8.5 grams amlodipine 5 mg tablet 5 mg PO DAILY #90 tabs 10/09/23 11/21/23 Rx atorvastatin 20 mg tablet 20 mg PO DAILY CHOLESTEROL #90 tabs 10/09/23 11/21/23 Rx losartan 100 mg tablet 100 mg PO DAILY #90 tabs 10/09/23 11/21/23 Rx paroxetine HCl 40 mg tablet 40 mg PO DAILY DEPRESSION #90 tabs 10/09/23 11/21/23 Rx PFSH Medical History (Updated 11/21/23 @ 17:27 by REBECCA Alcantar) Seasonal allergies COVID-19 Contusion of back Syncope Wears glasses Wears hearing aid Anxiety Alcohol use History of steroid therapy Arthritis Injury of back CPAP (continuous positive airway pressure) dependence Sleep apnea History of stress test Segmental and somatic dysfunction of pelvic region Hypertension Bilateral headaches Former smoker Benign essential HTN Surgical History Hx of fusion of cervical spine Family History Grandfather Alcoholism Father History of blood transfusion Diabetes Myocardial infarction Heart disease Hypertension Melanoma Grandmother Breast cancer Cancer Brother High cholesterol Mother Osteoporosis Other Arthritis Social History household members: spouse current occupational status: employed 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 He is due for routine labs. He is a former smoker and does not need refills today. He reports he is eating somewhat healthy but has room for improvement and is trying to stay active. He does check his blood pressure at home occasionally but cannot remember the values. He is taking his medication as prescribed without problems. He does try to monitor his salt intake somewhat. The patient has a history of mild asthma. He reports he hasn't had any problems this year. He states he hasn't needed his rescue inhaler at all. He hasn't had any major flare ups recently. He hasn't been following with pulmonology. He did not complete repeat CT in July 2022. The patient has a history of sleep apnea. He reports he did have a CPAP, but states he couldn't get it to fit right, so he stopped using it. He takes his paxil for both depression and anxiety. He reports he is doing well with it and denies side effects. He denies any current concerns about depression or anxiety nor any thoughts of suicide. The patient has chronic problems with his back. He reports [place] it [place] and has problems with it ever since. He states the sciatica symptoms started about 1.5 years ago. He follows with pain management and gets injections which does help. He doesn't take anything else for his symptoms. He has no questions or concerns at this time. He declines refills. Preventative testing: Cologuard- negative 10/25/2022 No history of PSA testing follows with optometry due for routine dental visit Low dose lung CT- Chest CT in 2022 ROS Const Constitutional: No body ache, chills, excessive sweating, fatigue, fever(s), frequent falls, headache(s), snoring, weakness, sleep problems or change in appetite Eyes Eyes: No blurry vision, change in vision, eye pain or Light sensitivity ENT E (more content not included)... Normal [facility] Absolute lymphocyte countOrd ered By: Dr. Arzate on 10-19-2022 Lymphocytes Auto (Unsp spec) [#/Vol] 0.93 10*3/uL 0.83-4.51 [facility] Basophil percentageOrdered B y: Dr. Arzate on 10-19-2022 Basophils/100 WBC (Bld) 1.1 % 0-1 [facility] Bilirubin [Mass/Vol] 1.00 mg/dL 0.20-1.00 [facility] Comment on above: For patients on eltr ombopag therapy, use of Dimension [place] TBIL is not recommended. Chloride [Moles/Vol] 107 mmol/L 98-107 [facility] Cholesterol [Mass/Vol] 115 mg/dL <200 [facility] Comment on above: <200 mg/dL Desirable 200-240 mg/dL Borderline >240 mg/dL High Risk Eosinophils/100 WBC (Bld) 2.8 % 0-5 [facility] Glucose [Mass/Vol] 91 mg/dL 74-106 [facility] Neutrophils (Bld) [#/Vol] 2.6 10*3/uL 2.0-7.7 [facility] Neutrophils/100 WBC (Bld) 60.4 % 47-70 [facility] Potassium [Moles/Vol] 3.9 mmol/L 3.5-5.1 [facility] Protein [Mass/Vol] 8.0 g/dL 6.4-8.2 [facility] Sodium [Moles/Vol] 140 mmol/L 136-145 [facility] Triglyceride [Mass/Vol] 105 mg/dL <199 [facility] Comment on above: The drugs N-Acetylcy steine and Metamizole may falsely depress this assay.Serum Triglycerides Reference Interval Normal <150 mg/dL Borderline high 150 - 199 mg/dL High 200 - 499 mg/dL Very High > or = 500 mg/dL WBC (Bld) [#/Vol] 4.4 10*3/uL 4.4-11.0 [facility] Blood erythrocytes count (nu mber/volume)Ordered By: Dr. Arzate on 10-19-2022 RBC (Bld) [#/Vol] 5.14 10*6/uL 4.6-6.2 [facility] Blood hemoglobin measurement (mass/volume)Ordered By: Dr. Arzate on 10-19-2022 Hemoglobin (Bld) [Mass/Vol] 15.8 g/dL 13.0-16.5 [facility] Blood lymphocytes/100 leukoc ytesOrdered By: Dr. Arzate on 10-19-2022 Lymphocytes/100 WBC (Bld) 21.3 % 19-41 [facility] Blood monocytes/100 leukocyt esOrdered By: Dr. Arzate on 10-19-2022 Monocytes/100 WBC (Bld) 14.2 % 0-10 [facility] Blood platelet mean volumeOr dered By: Dr. Arzate on 10-19-2022 Platelet mean volume (Bld) [Entitic vol] 10.2 fL 6.2-12.0 [facility] Determination of erythrocyte mean corpuscular volume (MCV)Ordered By: Dr. Arzate on 10-19-2022 MCV (RBC) [Entitic vol] 90.5 fL 80-94 [facility] Hematocrit Auto (Bld) [Volum e fraction]Ordered By: Dr. Arzate on 10-19-2022 Hematocrit (Bld) [Volume fraction] 46.5 % 40-54 [facility] - Chemistry and C hemistry - challengeOrdered By: Dr. Arzate on 10-19-2022 ALP [Catalytic activity/Vol] 190 U/L 45-117 [facility] ALT [Catalytic activity/Vol] 58 U/L 16-61 [facility] CO2 [Moles/Vol] 29.0 mmol/L 21.0-32.0 [facility] Globulin (S) [Mass/Vol] 4.2 g/dL 2.2-4.2 [facility] Urea nitrogen/Creatinine [Mass ratio] 13.8 mg/mg 10-20 [facility] - Hematology and Cell countsOrdered By: Dr. Arzate on 10-19-2022 Erythrocyte distribution width (RBC) [Entitic vol] 41.7 fL 35.1-43.9 [facility] Erythrocyte distribution width (RBC) [Ratio] 12.7 % 11.6-14.6 [facility] Immature granulocytes/100 WBC (Bld) 0.200 % 0.0-0.9 [facility] Comment on above: IG% - Immature Granu locytes (promyelocytes, myelocytes and metamyelocytes) > 1% indicates that a LEFT SHIFT is Present. MCH (RBC) [Entitic mass] 30.7 pg 27.0-32.0 [facility] Nucleated RBC/100 WBC (Bld) [Ratio] 0 % 0-5 [facility] MCHC Auto (RBC) [Mass/Vol]Or dered By: Dr. Arzate on 10-19-2022 MCHC (RBC) [Mass/Vol] 34.0 g/dL 32-36 [facility] No Panel InformationOrdered By: Dr. Arzate on 10-19-2022 Estimated GFR (MDRD) Amer 107 mL/min >60 [facility] Estimated GFR (MDRD) Non-Af Amer 88 mL/min >60 [facility] Platelets bldOrdered By: Dr. Arzate on 10-19-2022 Platelets (Bld) [#/Vol] 278 10*3/uL 150-450 [facility] Serum or plasma albumin cem urement (mass/volume)Ordered By: Dr. Arzate on 10-19-2022 Albumin [Mass/Vol] 3.8 g/dL 3.2-5.0 [facility] Serum or plasma albumin/glob ulin mass ratioOrdered By: Dr. Arzate on 10-19-2022 Albumin/Globulin [Mass ratio] 0.9 {ratio} 0.9-2.4 [facility] Serum or plasma calcium cem urement (mass/volume)Ordered By: Dr. Arzate on 10-19-2022 Calcium [Mass/Vol] 8.8 mg/dL 8.5-10.1 [facility] Serum or plasma cholesterol in HDL measurement (mass/volume)Ordered By: Dr. Arzate on 10-19-2022 Cholesterol in HDL [Mass/Vol] 27 mg/dL >40 [facility] Comment on above: The drugs N-Acetylcy steine and Metamizole may falsely depress this assay. Reference Range HDL <40 mg/dL Low HDL Cholesterol HDL >or= 60 mg/dL High HDL Cholesterol Serum or plasma cholesterol in VLDL measurement (mass/volume)Ordered By: Dr. Arzate on 10-19-2022 Cholesterol in VLDL [Mass/Vol] 21 mg/dL 5-40 [facility] Serum or plasma creatinine m easurement (mass/volume)Ordered By: Dr. Arzate on 10-19-2022 Creatinine [Mass/Vol] 0.94 mg/dL 0.70-1.30 [facility] Comment on above: The validity of the calculated GFR & GFRAA in patients over 70 years has not been determined. Clinical correlation is essential. Serum or plasma low density lipoprotein (LDL) cholesterol measurement (mass/volume)Ordered By: Dr. Arzate on 10-19-2022 Cholesterol in LDL [Mass/Vol] 67 mg/dL 0-130 [facility] Serum or plasma urea nitroge n measurement (mass/volume)Ordered By: Dr. Arzate on 10-19-2022 Urea nitrogen [Mass/Vol] 13 mg/dL 7-18 [facility] Thin prep Papanicolaou smear with manual screeningOrdered By: Dr. Arzate on 10-19-2022 Thin prep Papanicolaou smear with manual screening 33 U/L 15-37 [facility] Thin prep Papanicolaou smear with manual screening 4 5-15 [facility] Basophil percentageOrdered B y: Dr. Olivo on 05-17-2022 Creatinine [Mass/Vol] 1.2 mg/dL 0.70-1.30 [facility] No Panel InformationOrdered By: Dr. Olivo on 05-17-2022 Bedside Estimated GFR (eGFR) > 60.0000 mL/min >60 [facility] Absolute lymphocyte counton 06-13-2021 Lymphocytes Auto (Unsp spec) [#/Vol] 0.74 10*3/uL 0.83-4.51 [facility] Work Phone: Basophil percentageon 2021 Basophils/100 WBC (Bld) 0.5 % 0-1 [facility] Work Phone: Bilirubin [Mass/Vol] 1.50 mg/dL 0.20-1.00 [facility] Work Phone: Comment on above: For patients on eltr ombopag therapy, use of Dimension [place] TBIL is not recommended. Chloride [Moles/Vol] 105 mmol/L 98-107 [facility] Work Phone: Eosinophils/100 WBC (Bld) 2.9 % 0-5 [facility] Work Phone: Glucose [Mass/Vol] 89 mg/dL 74-106 [facility] Work Phone: Neutrophils (Bld) [#/Vol] 4.0 10*3/uL 2.0-7.7 [facility] Work Phone: Neutrophils/100 WBC (Bld) 72.4 % 47-70 [facility] Work Phone: Potassium [Moles/Vol] 3.5 mmol/L 3.5-5.1 [facility] Work Phone: Protein [Mass/Vol] 8.2 g/dL 6.4-8.2 [facility] Work Phone: Sodium [Moles/Vol] 139 mmol/L 136-145 [facility] Work Phone: WBC (Bld) [#/Vol] 5.5 10*3/uL 4.4-11.0 [facility] Work Phone: Blood erythrocytes count (nu mber/volume)on 06-13-2021 RBC (Bld) [#/Vol] 4.88 10*6/uL 4.6-6.2 [facility] Work [facility]: Blood hemoglobin measurement (mass/volume)on 06-13-2021 Hemoglobin (Bld) [Mass/Vol] 15.1 g/dL 13.0-16.5 [facility] Work Phone: Blood lymphocytes/100 leukoc yteson 06-13-2021 Lymphocytes/100 WBC (Bld) 13.4 % 19-41 [facility] Work Phone: [phone] Blood monocytes/100 leukocyt eson 06-13-2021 Monocytes/100 WBC (Bld) 10.6 % 0-10 [facility] Work Phone: [phone] Blood platelet mean volumeon 06-13-2021 Platelet mean volume (Bld) [Entitic vol] 9.6 fL 6.2-12.0 [facility] Work Phone: Determination of erythrocyte mean corpuscular volume (MCV)on 06-13-2021 MCV (RBC) [Entitic vol] 90.6 fL 80-94 [facility] Work Phone: Direct bilirubinon Bilirubin.direct [Mass/Vol] 0.34 mg/dL 0.00-0.30 [facility] Work Phone: [phone] Hematocrit Auto (Bld) [Volum e fraction]on 06-13-2021 Hematocrit (Bld) [Volume fraction] 44.2 % 40-54 [facility] Work Phone: [phone] Laboratory - Chemistry and C hemistry - challengeon 06-13-2021 ALP [Catalytic activity/Vol] 204 U/L 45-117 [facility] Work Phone: ALT [Catalytic activity/Vol] 36 U/L 16-61 [facility] Work Phone: [phone] CO2 [Moles/Vol] 27.0 mmol/L 21.0-32.0 [facility] Work Phone: [phone] Globulin (S) [Mass/Vol] 4.6 g/dL 2.2-4.2 [facility] Work Phone: [phone] Lipase [Catalytic activity/Vol] 104 U/L 73-393 [facility] Work Phone: [phone] Urea nitrogen/Creatinine [Mass ratio] 16.9 mg/mg 10-20 [facility] Work Phone: [phone] Laboratory - Hematology and Cell countson 06-13-2021 Erythrocyte distribution width (RBC) [Entitic vol] 42.5 fL 35.1-43.9 [facility] Work Phone: [phone] Erythrocyte distribution width (RBC) [Ratio] 12.8 % 11.6-14.6 [facility] Work Phone: [phone] Immature granulocytes/100 WBC (Bld) 0.200 % 0.0-0.9 [facility] Work Phone: [phone] Comment on above: IG% - Immature Granu locytes (promyelocytes, myelocytes and metamyelocytes) > 1% indicates that a LEFT SHIFT is Present. MCH (RBC) [Entitic mass] 30.9 pg 27.0-32.0 [facility] Work Phone: [phone] Nucleated RBC/100 WBC (Bld) [Ratio] 0 % 0-5 [facility] Work Phone: [phone] MCHC Auto (RBC) [Mass/Vol]on 06-13-2021 MCHC (RBC) [Mass/Vol] 34.2 g/dL 32-36 [facility] Work Phone: No Panel Informationon 06-13 Estimated Creatinine Clearance Calc 110.27 ml/min [facility] Work Phone: [phone] Estimated GFR (MDRD) Amer 115 mL/min >60 [facility] Work Phone: [phone] Comment on above: GFR Calc Estimated GFR (MDRD) Non-Af Amer 95 mL/min >60 [facility] Work Phone: [phone] Comment on above: Non- GFR Calc Platelets bldon 06-13-2021 Platelets (Bld) [#/Vol] 248 10*3/uL 150-450 [facility] Work Phone: Serum or plasma albumin cem urement (mass/volume)on 06-13-2021 Albumin [Mass/Vol] 3.6 g/dL 3.2-5.0 [facility] Work Phone: Serum or plasma calcium cem urement (mass/volume)on 06-13-2021 Calcium [Mass/Vol] 8.8 mg/dL 8.5-10.1 [facility] Work Phone: [phone] Serum or plasma creatinine m easurement (mass/volume)on 06-13-2021 Creatinine [Mass/Vol] 0.88 mg/dL 0.70-1.30 [facility] Work Phone: Comment on above: The validity of the calculated GFR & GFRAA in patients over 70 years has not been determined. Clinical correlation is essential. Serum or plasma urea nitroge n measurement (mass/volume)on 06-13-2021 Urea nitrogen [Mass/Vol] 15 mg/dL 7-18 [facility] Work Phone: Thin prep Papanicolaou smear with manual screeningon 06-13-2021 Thin prep Papanicolaou smear with manual screening 17 U/L 15-37 [facility] Work Phone: Thin prep Papanicolaou smear with manual screening 7 5-15 [facility] Work Phone: Absolute lymphocyte counton 05-08-2021 Lymphocytes Auto (Unsp spec) [#/Vol] 0.95 10*3/uL 0.83-4.51 [facility] Work Phone: Basophil percentageon 2021 Basophils/100 WBC (Bld) 0.4 % 0-1 [facility] Work Phone: Chloride [Moles/Vol] 106 mmol/L 98-107 [facility] Work Phone: Eosinophils/100 WBC (Bld) 0.8 % 0-5 [facility] Work Phone: Glucose [Mass/Vol] 94 mg/dL 74-106 [facility] Work Phone: Comment on above: Please note revised GLUCOSE reference range effective 2017. Neutrophils (Bld) [#/Vol] 3.5 10*3/uL 2.0-7.7 [facility] Work Phone: Neutrophils/100 WBC (Bld) 68.3 % 47-70 [facility] Work Phone: Potassium [Moles/Vol] 3.9 mmol/L 3.5-5.1 [facility] Work Phone: Sodium [Moles/Vol] 139 mmol/L 136-145 [facility] Work Phone: WBC (Bld) [#/Vol] 5.1 10*3/uL 4.4-11.0 [facility] Work Phone: [phone] Blood erythrocytes count (nu mber/volume)on 05-08-2021 RBC (Bld) [#/Vol] 4.35 10*6/uL 4.6-6.2 [facility] Work Phone: [phone] Blood hemoglobin measurement (mass/volume)on 05-08-2021 Hemoglobin (Bld) [Mass/Vol] 13.1 g/dL 13.0-16.5 [facility] Work Phone: Blood lymphocytes/100 leukoc yteson 05-08-2021 Lymphocytes/100 WBC (Bld) 18.6 % 19-41 [facility] Work Phone: Blood monocytes/100 leukocyt eson 05-08-2021 Monocytes/100 WBC (Bld) 11.7 % 0-10 [facility] Work Phone: Blood platelet mean volumeon 05-08-2021 Platelet mean volume (Bld) [Entitic vol] 9.7 fL 6.2-12.0 [facility] Work Phone: Determination of erythrocyte mean corpuscular volume (MCV)on 05-08-2021 MCV (RBC) [Entitic vol] 89.4 fL 80-94 [facility] Work Phone: [phone] Hematocrit Auto (Bld) [Volum e fraction]on 05-08-2021 Hematocrit (Bld) [Volume fraction] 38.9 % 40-54 [facility] Work Phone: [phone] Laboratory - Chemistry and C hemistry - challengeon 05-08-2021 CO2 [Moles/Vol] 28.0 mmol/L 21.0-32.0 [facility] Work Phone: [phone] Urea nitrogen/Creatinine [Mass ratio] 16.1 mg/mg 10-20 [facility] Work Phone: [phone] Laboratory - Hematology and Cell countson 05-08-2021 Erythrocyte distribution width (RBC) [Entitic vol] 40.4 fL 35.1-43.9 [facility] Work Phone: [phone] Erythrocyte distribution width (RBC) [Ratio] 12.3 % 11.6-14.6 [facility] Work Phone: [phone] Immature granulocytes/100 WBC (Bld) 0.200 % 0.0-0.9 [facility] Work Phone: [phone] Comment on above: IG% - Immature Granu locytes (promyelocytes, myelocytes and metamyelocytes) > 1% indicates that a LEFT SHIFT is Present. MCH (RBC) [Entitic mass] 30.1 pg 27.0-32.0 [facility] Work Phone: [phone] Nucleated RBC/100 WBC (Bld) [Ratio] 0 % 0-5 [facility] Work Phone: [phone] MCHC Auto (RBC) [Mass/Vol]on 05-08-2021 MCHC (RBC) [Mass/Vol] 33.7 g/dL 32-36 [facility] Work Phone: [phone] Panel Informationon 05-08 Estimated Creatinine Clearance Calc 111.54 ml/min [facility] Work Phone: [phone] Estimated GFR (MDRD) Amer 117 mL/min >60 [facility] Work Phone: [phone] Comment on above: GFR Calc Estimated GFR (MDRD) Non-Af Amer 97 mL/min >60 [facility] Work Phone: Comment on above: Non- GFR Calc Platelets bldon 05-08-2021 Platelets (Bld) [#/Vol] 227 10*3/uL 150-450 [facility] Work Phone: Serum or plasma calcium cem urement (mass/volume)on 05-08-2021 Calcium [Mass/Vol] 8.5 mg/dL 8.5-10.1 [facility] Work Phone: [phone] Serum or plasma creatinine m easurement (mass/volume)on 05-08-2021 Creatinine [Mass/Vol] 0.87 mg/dL 0.70-1.30 [facility] Work Phone: Comment on above: The validity of the calculated GFR & GFRAA in patients over 70 years has not been determined. Clinical correlation is essential. Serum or plasma urea nitroge n measurement (mass/volume)on 05-08-2021 Urea nitrogen [Mass/Vol] 14 mg/dL 7-18 [facility] Work Phone: Thin prep Papanicolaou smear with manual screeningon 05-08-2021 Thin prep Papanicolaou smear with manual screening 5 5-15 [facility] Work Phone: Laboratory - Chemistry and C hemistry - challengeon 05-07-2021 Magnesium [Mass/Vol] 2.4 mg/dL 1.6-2.6 [facility] Work Phone: No Panel Informationon 05-07 Thyroid Stimulating Hormone (TSH) 1.49 uIU/mL 0.358-3.74 [facility] Work Phone: Laboratory - Microbiology an d Antimicrobial susceptibilityon 05-06-2021 Bacteria identified Cx Nom (Bld) No growth in 5 days. [facility] Work Phone: No Panel Informationon 05-06 D-Dimer Quantitative (PE/DVT) 0.81 FEU/ug/m 0.27-0.49 [facility] Work Phone: Comment on above: CRITICAL VALUE VERIF IED. CALLED TO FABIANA ROSENTHAL05/06/21 1306 Minnie Miranda.RESULTS READ BACK BY SAME . D-Dimer ELEVATED (>0.49): Additional studies and clinicalassessments are indicated to conclude diagnosis of:Deep Vein Thrombosis (DVT) or Pulmonary Embolism (PE) Troponin I High Sensitivity 6 pg/mL 3.0-78.0 [facility] Work Phone: Comment on above: Please Note: [place] t Units and Gender Specific Reference Ranges. For more information see Policy Stat Procedure [place] High Sensitivity Troponin (TNIH) and attachments. Vital Signs Date Time Vital Sign Value Performing Clinician Facility 11-21-2024 11:06-0400 Body height 187.[address] Washington Arazte MD Work Phone: [facility] 11-21-2024 11:06-0400 Body mass index (BMI) [Ratio] 32.1 kg/m2 Dr. Washington Arzate MD Work Phone: [facility] 11-21-2024 11:06-0400 Body temperature 97.6 [degF] Dr. Washington Arzate MD Work Phone: [facility] 11-21-2024 11:06-0400 Body weight 113.[address] Washington Arzate MD Work Phone: [facility] 11-21-2024 11:06-0400 Diastolic blood pressure 90 mm[Hg] Dr. Washington Arzate MD Work Phone: [facility] 11-21-2024 11:06-0400 Heart rate 82 /min Dr. [place] Arzate MD Work Phone: [facility] 11-21-2024 11:06-0400 Respiratory rate 16 /min Dr. Washington Arzate MD Work Phone: [facility] 11-21-2024 11:06-0400 SaO2% (BldA) [Mass fraction] 97 % Dr. Washington Arzate MD Work Phone: [facility] 11-21-2024 11:06-0400 Systolic blood pressure 142 mm[Hg] Dr. Washington Arzate MD Work Phone: [facility] 07-01-2024 11:13-0500 Body temperature 98.91 [degF] Krislyn Aberegg PA Work Phone: [facility] 07-01-2024 11:13-0500 Body weight 111 kg Krislyn Aberegg PA Work Phone: [facility] 07-01-2024 11:13-0500 Diastolic blood pressure 80 mm[Hg] Krislyn Aberegg PA Work Phone: [facility] 07-01-2024 11:13-0500 Heart rate 102 /min Krislyn Aberegg PA Work Phone: [facility] 07-01-2024 11:13-0500 Respiratory rate 16 /min Krislyn Aberegg PA Work Phone: [facility] 07-01-2024 11:13-0500 SaO2% (BldA) [Mass fraction] 97 % Krislyn Aberegg PA Work Phone: [facility] 07-01-2024 11:13-0500 Systolic blood pressure 122 mm[Hg] Krislyn Aberegg PA Work Phone: [facility] 05-07-2024 09:27-0500 Body temperature 100.2 [degF] Enzo Clutter PA-C Work Phone: [facility] 05-07-2024 09:27-0500 Body weight 110.8 kg Enzo Clutter PA-C Work Phone: [facility] 05-07-2024 09:27-0500 Diastolic blood pressure 80 mm[Hg] Enzo Clutter PA-C Work Phone: [facility] 05-07-2024 09:27-0500 Heart rate 103 /min Enzo Clutter PA-C Work Phone: [facility] 05-07-2024 09:27-0500 Respiratory rate 16 /min Enzo Boyce PA-C Work Phone: [facility] 05-07-2024 09:27-0500 SaO2% (BldA) [Mass fraction] 97 % Enzo Clutter PA-C Work Phone: [facility] 05-07-2024 09:27-0500 Systolic blood pressure 132 mm[Hg] Enzo Boyce PA-C Work Phone: [facility] 09-27-2022 13:33-0400 Body height 187.[address] Darin Sharma Work Phone: [facility] 09-27-2022 13:33-0400 Body mass index (BMI) [Ratio] 31.6 kg/m2 Dr. Darin Sharma Work Phone: [facility] 09-27-2022 13:33-0400 Body temperature 98.5 [degF] Dr. Darin Sharma Work Phone: [facility] 09-27-2022 13:33-0400 Body weight 111.[address] Darin Sharma Work Phone: [facility] 09-27-2022 13:33-0400 Diastolic blood pressure 82 mm[Hg] Dr. Darin Sharma Work Phone: [facility] 09-27-2022 13:33-0400 Heart rate 89 /min Dr. Darin Sharma Work Phone: [facility] 09-27-2022 13:33-0400 Respiratory rate 14 /min Dr. Darin Sharma Work Phone: [facility] 09-27-2022 13:33-0400 SaO2% (BldA) [Mass fraction] 97 % Dr. Darin Sharma Work Phone: [facility] 09-27-2022 13:33-0400 Systolic blood pressure 124 mm[Hg] Dr. Darin Sharma Work Phone: [facility] 06-28-2022 06:25-0500 Body height 187.[address] Darin Sharma Work Phone: [facility] 06-28-2022 06:25-0500 Body mass index (BMI) [Ratio] 32.1 kg/m2 Dr. Darin Sharma Work Phone: [facility] 06-28-2022 06:25-0500 Body temperature 97.6 [degF] Dr. Darin Sharma Work Phone: [facility] 06-28-2022 06:25-0500 Body weight 113.[address] Darin Sharma Work Phone: [facility] 06-28-2022 06:25-0500 Diastolic blood pressure 89 mm[Hg] Dr. Darin Sharma Work Phone: [facility] 06-28-2022 06:25-0500 Heart rate 87 /min Dr. Darin Sharma Work Phone: [facility] 06-28-2022 06:25-0500 Respiratory rate 18 /min Dr. Darin Sharma Work Phone: [facility] 06-28-2022 06:25-0500 SaO2% (BldA) [Mass fraction] 99 % Dr. Darin Sharma Work Phone: [facility] 06-28-2022 06:25-0500 Systolic blood pressure 142 mm[Hg] Dr. Darin Sharma Work Phone: [facility] 05-24-2022 11:04-0500 Body mass index (BMI) [Ratio] 31.4 kg/m2 Dr. Darin Sharma Work Phone: [facility] 05-24-2022 11:04-0500 Body temperature 96.5 [degF] Dr. Darin Sharma Work Phone: [facility] 05-24-2022 11:04-0500 Body weight 111.[address] Darin Sharma Work Phone: [facility] 05-24-2022 11:04-0500 Diastolic blood pressure 94 mm[Hg] Dr. Darin Sharma Work Phone: [facility] 05-24-2022 11:04-0500 Heart rate 79 /min Dr. Darin Sharma Work Phone: [facility] 05-24-2022 11:04-0500 Respiratory rate 18 /min Dr. Darin Sharma Work Phone: [facility] 05-24-2022 11:04-0500 SaO2% (BldA) [Mass fraction] 95 % Dr. Darin Sharma Work Phone: [facility] 05-24-2022 11:04-0500 Systolic blood pressure 154 mm[Hg] Dr. Darin Sharma Work Phone: [facility] 06-13-2021 14:40-0500 Diastolic blood pressure 74 mm[Hg] Dr. Darin Sharma Work Phone: [facility] Work Phone: 06-13-2021 14:40-0500 Heart rate 86 /min Dr. Darin Sharma Work Phone: [facility] Work Phone: 06-13-2021 14:40-0500 Respiratory rate 15 /min Dr. Darin Sharma Work Phone: [facility] Work Phone: 06-13-2021 14:40-0500 SaO2% (BldA) [Mass fraction] 98 % Dr. Darin Sharma Work Phone: [facility] Work Phone: 06-13-2021 14:40-0500 Systolic blood pressure 136 mm[Hg] Dr. Darin Sharma Work Phone: [facility] Work Phone: 06-13-2021 10:02-0500 Body height 187.[address] Darin Sharma Work Phone: [facility] Work Phone: 06-13-2021 10:02-0500 Body mass index (BMI) [Ratio] 29.5 kg/m2 Dr. Darin Sharma Work Phone: [facility] Work Phone: 06-13-2021 10:02-0500 Body temperature 95.6 [degF] Dr. Darin Sharma Work Phone: [facility] Work Phone: 06-13-2021 10:02-0500 Body weight 104.[address] Darin Sharma Work Phone: [facility] Work Phone: 05-10-2021 15:48-0500 Body temperature 98.6 [degF] Dr. Darin Sharma Work Phone: [facility] Work Phone: 05-10-2021 15:48-0500 Diastolic blood pressure 89 mm[Hg] Dr. Darin Sharma Work Phone: [facility] Work Phone: 05-10-2021 15:48-0500 Heart rate 65 /min Dr. Darin Sharma Work Phone: [facility] Work Phone: 05-10-2021 15:48-0500 Respiratory rate 16 /min Dr. Darin Sharma Work Phone: [facility] Work Phone: 05-10-2021 15:48-0500 SaO2% (BldA) [Mass fraction] 100 % Dr. Darin Sharma Work Phone: [facility] Work Phone: 05-10-2021 15:48-0500 Systolic blood pressure 128 mm[Hg] Dr. Darin Sharma Work Phone: [facility] Work Phone: 05-10-2021 14:25-0500 Body mass index (BMI) [Ratio] 28.2 kg/m2 Dr. Darin Sharma Work Phone: [facility] Work Phone: 05-10-2021 14:25-0500 Body weight 99.[address] Darin Sharma Work Phone: [facility] Work Phone: 05-08-2021 14:00-0500 Heart rate 69 /min Dr. Darin Sharma Work Phone: [facility] Work Phone: 05-08-2021 11:14-0500 Body temperature 97.7 [degF] Dr. Darin Sharma Work Phone: [facility] Work Phone: 05-08-2021 11:14-0500 Diastolic blood pressure 78 mm[Hg] Dr. Darin Sharma Work Phone: [facility] Work Phone: 05-08-2021 11:14-0500 Respiratory rate 18 /min Dr. Darin Sharma Work Phone: [facility] Work Phone: 05-08-2021 11:14-0500 SaO2% (BldA) [Mass fraction] 94 % Dr. Darin Sharma Work Phone: [facility] Work Phone: 05-08-2021 11:14-0500 Systolic blood pressure 144 mm[Hg] Dr. Darin Sharma Work Phone: [facility] Work Phone: 05-07-2021 09:09-0500 Body weight 96.[address] Darin Sharma Work Phone: [facility] Work Phone: 05-06-2021 16:47-0500 Body mass index (BMI) [Ratio] 27.3 kg/m2 Dr. Darin Sharma Work Phone: [facility] Work Phone: Encounters Encounter Date Encounter Type Care Provider Facility Start: 11-21-2024 End: 11-21-[address] Washington Arzate MD Work Phone: [facility] Start: 11-21-2024 End: 11-21-[address] Washington Arzate MD -[facility] Work Phone: Start: 07-01-2024 End: 07-01-2024 Patient encounter procedure Capo PONCE Work Phone: [facility] Comment on above: Acute cough (Primary Dx) Start: 07-01-2024 End: 07-01-2024 ambulatory WASHINGTON WERNERLAY Facility:[facility] Start: 07-01-2024 End: 07-01-2024 Subsequent hospital visit by physician [facility] Work Phone: Radiology Comment on above: Acute cough [R05.1] Start: 05-21-2024 End: 05-21-2024 ambulatory Washington Wernerlay Facility:[facility] Start: 05-07-2024 End: 05-07-2024 Subsequent hospital visit by physician [facility] Work Phone: Radiology Comment on above: Viral illness [B34.9 ] Start: 05-07-2024 End: 05-07-2024 ambulatory WASHINGTON Kathrin WERNERHUEY Facility:[facility] Start: 05-07-2024 End: 05-07-2024 Office outpatient new 30 minutes Enzo Boyce PA-C Work Phone: [facility] Comment on above: Viral illness (Prima ry Dx); Recent foreign travel Start: 01-08-2024 Encounter for genera l adult medical examination without abnormal findings Nanci Gipson [facility] Start: 12-12-2023 End: 12-12-2023 ambulatory [facility] Facility:[facility] Start: 12-01-2023 End: 12-01-2023 ambulatory [facility] Facility:[facility] Start: 11-21-[address] Washington Arzate MD Work Phone: [facility] Start: 11-21-2023 End: 11-21-2023 ambulatory Washington Arzate Facility:[facility] Start: 10-19-2022 End: 10-19-[address] Darin Sharma Work Phone: [facility] Work Phone: Start: 10-19-2022 End: 10-19-[address] Darin Sharma Work Phone: [facility], [place] Start: 09-27-2022 End: 09-27-[address] Darin Sharma Work Phone: [facility] Start: 09-21-2022 End: 09-21-[address] Darin Sharma Work Phone: [facility] Work Phone: Start: 09-21-2022 End: 09-21-[address] Darin Sharma Work Phone: [facility] Start: 06-28-2022 End: 06-28-[address] [facility] Start: 06-21-2022 Non-patient / Non-visit Dr. David Sharma Work Phone: [facility] Start: 06-20-2022 End: 06-20-[address] Darin Sharma Work Phone: [facility] Work Phone: Start: 06-20-2022 End: 06-20-[address] Darin Sharma Work Phone: [facility]-Pulmonary Services/Neurology Start: 05-24-2022 End: 05-24-[address] [facility] Start: 05-17-2022 End: 05-17-2022 Patient encounter procedure [facility]-Cat [facility], [facility] Start: 05-07-2022 End: 05-07-2022 ambulatory [facility] Work Phone: Start: 05-07-2022 End: 05-07-2022 Patient encounter procedure [facility]-MRI - [facility] Start: 09-15-2021 End: 09-15-[address] Darin Sharma [facility] Start: 09-03-2021 End: 09-03-[address] Darin Sharma Work Phone: [facility] Start: 08-18-2021 End: 08-18-[address] Darin Sharma Work Phone: [facility] Start: 07-26-2021 End: 07-26-[address] Darin Sharma Work Phone: [facility] Start: 07-13-2021 End: 07-13-[address] Darin Sharma Work Phone: [facility] Start: 07-05-2021 End: 07-05-[address] Darin Sharma Work Phone: [facility] Start: 06-22-2021 End: 06-22-[address] [facility] Start: 06-13-2021 End: 06-13-2021 Emergency department patient visit Dr. Darin Sharma Work Phone: [facility]Emergency Department Start: 06-08-2021 End: 06-08-[address] Darin Sharma Work Phone: [facility] Start: 05-25-2021 End: 05-25-[address] Darin Sharma Work Phone: [facility] Start: 05-21-2021 End: 05-21-[address] Darin Sharma Work Phone: [facility] Start: 05-10-2021 End: 05-10-[address] [facility] Start: 05-08-2021 Non-patient / Non-visit Dr. David Sharma Work Phone: [facility] Start: 05-07-2021 Non-patient / Non-visit Dr. David Sharma Work Phone: [facility] Start: 05-07-2021 Non-patient / Non-visit Dr. David Sharma Work Phone: [facility] Start: 05-06-2021 Non-patient / Non-visit Dr. David Sharma Work Phone: [facility] Start: 05-06-2021 End: 05-08-2021 Evaluation and management of inpatient Dr. Darin [facility] Start: 05-03-2021 End: 05-03-[address] Darin Sharma Work Phone: [facility] Procedures Date Procedure Procedure Detail Performing Clinician Start: 07-01-2024 Radiologic exam ches t 2 views aCpo PONCE Work Phone: Start: 05-07-2024 Radiologic exam ches t 2 views Enzo Boyce PA-C Work Phone: Start: 05-24-2023 Radiologic examinati on of knee Dr. Darin Sharma Work Phone: Start: 05-17-2022 CT of thorax with contrast Start: 05-07-2022 MRI of lumbar spine Start: 09-15-2021 Plain x-ray of pelvi s and lower extremity Dr. Darin Sharma Work Phone: Start: 09-03-2021 X-ray of cervical spine Dr. Darin Sharma Work Phone: Start: 08-18-2021 X-ray of lumbosacral spine Dr. Darin Sharma Work Phone: Start: 06-13-2021 Computed tomography of abdomen and pelvis with contrast Dr. Darin Sharma Work Phone: Start: 05-21-2021 X-ray of cervical spine Dr. Darin Sharma Work Phone: Start: 05-06-2021 Bacteria identified in Blood by Culture Dr. Darin Sharma Work Phone: Start: 05-06-2021 CT angiography of ch est with contrast Dr. Darin Sharma Work Phone: Start: 05-06-2021 CT of head without contrast Dr. Darin Sharma Work Phone: Plan of Treatment Date Care Activity Detail Author Start: 09-27-2032 Urine microalbumin profile DTaP,Tdap,Td Vaccine (2 - Td or Tdap) [facility] Start: 10-18-2025 Screening for malign ant neoplasm of colon [facility] Start: 03-05-2024 Diabetes Screening Diabetes Screenin g [facility] Start: 12-31-2023 Covid-19 Vaccine ( season) Covid-19 Vaccine ( season) [facility] Start: 12-31-2023 Influenza vaccination Influenza Vacc ine (#1) [facility] Start: 2020 Prostate specific antigen measurement Prostate Cancer Screening Discussion [facility] Start: 11-12-2015 Pneumococcal Vaccine : 50+ (1 of 1 - PCV) Pneumococcal Vaccine: 50+ (1 of 1 - PCV) [facility] Start: 07-14-2016 Shingrix Vaccine (1 of 2) Shingrix Vaccine (1 of 2) [facility] Start: 2010 Screening for malign ant neoplasm of colon [facility] Start: 2000 Lipid panel Lipid Screening [facility] Start: 1984 Hepatitis B Vaccine (1 of 3 - 19+ 3-dose series) Hepatitis B Vaccine (1 of 3 - 19+ 3-dose series) [facility] Start: 11-12-1983 Anxiety Screening Anxiety Screening [facility] Start: 11-12-1983 Depression Screening Depression Scre ening [facility] Start: 11-12-1983 Hepatitis C screening Hepatitis C Sc reening [facility] Start: 11-12-1983 HIV screening HIV Screening [facility] CBC W Auto Different ial panel - Blood [facility] CBC W Auto Different ial panel - Blood [facility] Comprehensive metabo lic 1999 panel - Serum or Plasma [facility] COVID & INFLUENZA A/ B & RSV PCR, ROUTINE COVID & INFLUENZA A/B & RSV PCR, ROUTINE Microbiology Routine Viral illness Ordered: 05/07/2024 [facility] Work Phone: Comment on above: Ordered: 05/07/2024 CT Chest W contrast IV [facility] Lipid 1995 panel - S desmond or Plasma [facility] Lipid 1995 panel - S desmond or Plasma [facility] Patient Education ED Abdominal P ain Unkn Cause Male... [facility] Work Phone: Patient referral [facility] Work Phone: Testosterone Free [Mass/volume] in Serum or Plasma [facility] Thyroid stimulating hormone measurement [facility] Immunizations Immunization Date Immunization Notes Care Provider Fa [facility] 09-27-2022 tetanus toxoid, redu darnell diphtheria toxoid, and acellular pertussis vaccine, adsorbed Dr. Darin Sharma Work Phone: [facility] 09-14-2021 Covid (Moderna) Dr. Darin powell Work Phone: [facility] 03-18-2021 Covid (Flako & Flako) Dr. Darin Sharma Work Phone: [facility] 01-22-2021 Covid (Moderna) Dr. Darin powell Work Phone: [facility] 12-25-2020 Covid (Moderna) Dr. Darin powell Work Phone: [facility] 03-17-2020 influenza, injectabl e, quadrivalent, preservative free Dr. Washington Arzate MD Work Phone: [facility] 03-17-2020 influenza, seasonal, injectable Dr. Darin Sharma Work Phone: [facility] 03-17-2020 influenza virus vaccine, unspecified formulation Enzo Boyce PA-C Work Phone: [facility] Payers Date Payer Category Payer Unknown [id number] 2023 Self-pay [id number] 2019 Private Health Insurance MMO [employer] PPO [id number] 2019 Unknown MMO MMO [employer] PPO [id number] 2019-Present [phone] [address] [place] [address] PPO [id number] 2015 Unknown [id number] Unknown [id number] Unknown [id number] Unknown [id number] Unknown [id number] Social History Date Type Detail Facility Start: 07-26-2021 End: 09-27-2022 Tobacco smoking status ILIS Unknown if ever smoked [facility] Start: 09-30-2020 None [facility] Start: 09-30-2020 Non-smoker [facility] Start: 1965 Sex Assigned At Male [facility] Start: 05-07-2024 Tobacco smoking stat [facility] Never smoked tobacco [facility] Start: 05-07-2024 Tobacco use and exposure Smokeless tobacco non-user [facility] Start: 05-07-2024 End: 07-01-2024 Alcoholic beverage intake Not Asked [facility] Start: 05-07-2024 History of Social function [facility] Start: 05-07-2024 Tobacco use panel [facility] Start: 1965 Sex assigned at Not on file [facility] Start: 05-21-2024 [facility] Medical Equipment Procedure Code Equipment Code Equipment Origin al Text Equipment Identifier Dates Discectomy, spine, cervical, anterior approach, with fusion 2 Level Plate 51mm FDA Start: 02-03-2021 Discectomy, spine, cervical, anterior approach, with fusion PATCH,AMNION 4x4CM FDA Start: 02-03-2021 Discectomy, spine, cervical, anterior approach, with fusion STRIP,BONE CANC [id number] FDA Start: 02-03-2021 Discectomy, spine, cervical, anterior approach, with fusion STRIP,BONE CANC [id number] FDA Start: 02-03-2021 Discectomy, spine, cervical, anterior approach, with fusion STRIP,BONE CANC [id number] FDA Start: 02-03-2021 Discectomy, spine, cervical, anterior approach, with fusion [id number] Variable screw FDA Start: 02-03-2021 Discectomy, spine, cervical, anterior approach, with fusion 4.9qtz79zq Variable screw FDA Start: 02-03-2021 Discectomy, spine, cervical, anterior approach, with fusion 4.3iwz80ka Variable screw FDA Start: 02-03-2021 Discectomy, spine, cervical, anterior approach, with fusion 4.0dab65jf Variable screw FDA Start: 02-03-2021 Discectomy, spine, cervical, anterior approach, with fusion 4.1vrb00vb Variable screw FDA Start: 02-03-2021 Discectomy, spine, cervical, anterior approach, with fusion [id number] Variable screw FDA Start: 02-03-2021 Discectomy, spine, cervical, anterior approach, with fusion Corelink [id number] -7 8mm FDA Start: 02-03-2021 Discectomy, spine, cervical, anterior approach, with fusion Corelink [id number] 9mm FDA Start: 02-03-2021 Discectomy, spine, cervical, anterior approach, with fusion 2 Level Plate 51mm FDA Start: 02-03-2021 Discectomy, spine, cervical, anterior approach, with fusion PATCH,AMNION 4x4CM FDA Start: 02-03-2021 Discectomy, spine, cervical, anterior approach, with fusion STRIP,BONE CANC [id number] FDA Start: 02-03-2021 Discectomy, spine, cervical, anterior approach, with fusion STRIP,BONE CANC [id number] FDA Start: 02-03-2021 Discectomy, spine, cervical, anterior approach, with fusion STRIP,BONE CANC [id number] FDA Start: 02-03-2021 Discectomy, spine, cervical, anterior approach, with fusion 4.3tie27vv Variable screw FDA Start: 02-03-2021 Discectomy, spine, cervical, anterior approach, with fusion 4.1wen00gi Variable screw FDA Start: 02-03-2021 Discectomy, spine, cervical, anterior approach, with fusion 4.1int43ul Variable screw FDA Start: 02-03-2021 Discectomy, spine, cervical, anterior approach, with fusion 4.3ldm73cf Variable screw FDA Start: 02-03-2021 Discectomy, spine, cervical, anterior approach, with fusion 4.3sxz98rv Variable screw FDA Start: 02-03-2021 Discectomy, spine, cervical, anterior approach, with fusion 4.3eke28oi Variable screw FDA Start: 02-03-2021 Discectomy, spine, cervical, anterior approach, with fusion Corelink [id number] -7 8mm FDA Start: 02-03-2021 Discectomy, spine, cervical, anterior approach, with fusion Corelink [id number] 9mm FDA Start: 02-03-2021 Discectomy, spine, cervical, anterior approach, with fusion 2 Level Plate 51mm FDA Start: 02-03-2021 Discectomy, spine, cervical, anterior approach, with fusion PATCH,AMNION 4x4CM FDA Start: 02-03-2021 Discectomy, spine, cervical, anterior approach, with fusion STRIP,BONE CANC [id number] FDA Start: 02-03-2021 Discectomy, spine, cervical, anterior approach, with fusion STRIP,BONE CANC [id number] FDA Start: 02-03-2021 Discectomy, spine, cervical, anterior approach, with fusion STRIP,BONE CANC [id number] FDA Start: 02-03-2021 Discectomy, spine, cervical, anterior approach, with fusion 4.6ken53aw Variable screw FDA Start: 02-03-2021 Discectomy, spine, cervical, anterior approach, with fusion [id number] Variable screw FDA Start: 02-03-2021 Discectomy, spine, cervical, anterior approach, with fusion 4.0uxh78va Variable screw FDA Start: 02-03-2021 Discectomy, spine, cervical, anterior approach, with fusion 4.7cpo96io Variable screw FDA Start: 02-03-2021 Discectomy, spine, cervical, anterior approach, with fusion 4.3uqx61mg Variable screw FDA Start: 02-03-2021 Discectomy, spine, cervical, anterior approach, with fusion 4.1jiq81vz Variable screw FDA Start: 02-03-2021 Discectomy, spine, cervical, anterior approach, with fusion Corelink [id number] -7 8mm FDA Start: 02-03-2021 Discectomy, spine, cervical, anterior approach, with fusion Corelink [id number] 9mm FDA Start: 02-03-2021 Discectomy, spine, cervical, anterior approach, with fusion 2 Level Plate 51mm FDA Start: 02-03-2021 Discectomy, spine, cervical, anterior approach, with fusion PATCH,AMNION 4x4CM FDA Start: 02-03-2021 Discectomy, spine, cervical, anterior approach, with fusion STRIP,BONE CANC [id number] FDA Start: 02-03-2021 Discectomy, spine, cervical, anterior approach, with fusion STRIP,BONE CANC [id number] FDA Start: 02-03-2021 Discectomy, spine, cervical, anterior approach, with fusion STRIP,BONE CANC [id number] FDA Start: 02-03-2021 Discectomy, spine, cervical, anterior approach, with fusion 4.6mpc53du Variable screw FDA Start: 02-03-2021 Discectomy, spine, cervical, anterior approach, with fusion 4.7kjj03bn Variable screw FDA Start: 02-03-2021 Discectomy, spine, cervical, anterior approach, with fusion 4.8bag02va Variable screw FDA Start: 02-03-2021 Discectomy, spine, cervical, anterior approach, with fusion 4.2ehn03du Variable screw FDA Start: 02-03-2021 Discectomy, spine, cervical, anterior approach, with fusion 4.9asn15qa Variable screw FDA Start: 02-03-2021 Discectomy, spine, cervical, anterior approach, with fusion 4.8ckx90nx Variable screw FDA Start: 02-03-2021 Discectomy, spine, cervical, anterior approach, with fusion Corelink 16.8sgp30jh -7 8mm FDA Start: 02-03-2021 Discectomy, spine, cervical, anterior approach, with fusion Corelink [id number] 9mm FDA Start: 02-03-2021 Discectomy, spine, cervical, anterior approach, with fusion 2 Level Plate 51mm FDA Start: 02-03-2021 Discectomy, spine, cervical, anterior approach, with fusion PATCH,AMNION 4x4CM FDA Start: 02-03-2021 Discectomy, spine, cervical, anterior approach, with fusion STRIP,BONE CANC [id number] FDA Start: 02-03-2021 Discectomy, spine, cervical, anterior approach, with fusion STRIP,BONE CANC [id number] FDA Start: 02-03-2021 Discectomy, spine, cervical, anterior approach, with fusion STRIP,BONE CANC [id number] FDA Start: 02-03-2021 Discectomy, spine, cervical, anterior approach, with fusion 4.1gmt25yx Variable screw FDA Start: 02-03-2021 Discectomy, spine, cervical, anterior approach, with fusion 4.0obd65qx Variable screw FDA Start: 02-03-2021 Discectomy, spine, cervical, anterior approach, with fusion 4.8xjj49br Variable screw FDA Start: 02-03-2021 Discectomy, spine, cervical, anterior approach, with fusion 4.4mdm53zf Variable screw FDA Start: 02-03-2021 Discectomy, spine, cervical, anterior approach, with fusion 4.0oef48xe Variable screw FDA Start: 02-03-2021 Discectomy, spine, cervical, anterior approach, with fusion 4.7opm02ic Variable screw FDA Start: 02-03-2021 Discectomy, spine, cervical, anterior approach, with fusion Corelink 16.7itp97ha -7 8mm FDA Start: 02-03-2021 Discectomy, spine, cervical, anterior approach, with fusion Corelink 16.3rig59zuv7 9mm FDA Start: 02-03-2021 Discectomy, spine, cervical, anterior approach, with fusion 2 Level Plate 51mm FDA Start: 02-03-2021 Discectomy, spine, cervical, anterior approach, with fusion PATCH,AMNION 4x4CM FDA Start: 02-03-2021 Discectomy, spine, cervical, anterior approach, with fusion STRIP,BONE CANC [id number] FDA Start: 02-03-2021 Discectomy, spine, cervical, anterior approach, with fusion STRIP,BONE CANC [id number] FDA Start: 02-03-2021 Discectomy, spine, cervical, anterior approach, with fusion STRIP,BONE CANC [id number] FDA Start: 02-03-2021 Discectomy, spine, cervical, anterior approach, with fusion 4.9ado60eq Variable screw FDA Start: 02-03-2021 Discectomy, spine, cervical, anterior approach, with fusion 4.6grm29au Variable screw FDA Start: 02-03-2021 Discectomy, spine, cervical, anterior approach, with fusion 4.9gbl34oq Variable screw FDA Start: 02-03-2021 Discectomy, spine, cervical, anterior approach, with fusion 4.3dkc35wa Variable screw FDA Start: 02-03-2021 Discectomy, spine, cervical, anterior approach, with fusion 4.6xlw19fp Variable screw FDA Start: 02-03-2021 Discectomy, spine, cervical, anterior approach, with fusion 4.8vpe74vh Variable screw FDA Start: 02-03-2021 Discectomy, spine, cervical, anterior approach, with fusion Corelink 16.5rqy61yk -7 8mm FDA Start: 02-03-2021 Discectomy, spine, cervical, anterior approach, with fusion Corelink 16.0uzt25uel3 9mm FDA Start: 02-03-2021 Discectomy, spine, cervical, anterior approach, with fusion 2 Level Plate 51mm FDA Start: 02-03-2021 Discectomy, spine, cervical, anterior approach, with fusion PATCH,AMNION 4x4CM FDA Start: 02-03-2021 Discectomy, spine, cervical, anterior approach, with fusion STRIP,BONE CANC [id number] FDA Start: 02-03-2021 Discectomy, spine, cervical, anterior approach, with fusion STRIP,BONE CANC [id number] FDA Start: 02-03-2021 Discectomy, spine, cervical, anterior approach, with fusion STRIP,BONE CANC [id number] FDA Start: 02-03-2021 Discectomy, spine, cervical, anterior approach, with fusion 4.6xor47pe Variable screw FDA Start: 02-03-2021 Discectomy, spine, cervical, anterior approach, with fusion 4.0rxb80gq Variable screw FDA Start: 02-03-2021 Discectomy, spine, cervical, anterior approach, with fusion 4.6hoa47st Variable screw FDA Start: 02-03-2021 Discectomy, spine, cervical, anterior approach, with fusion 4.2ium58eq Variable screw FDA Start: 02-03-2021 Discectomy, spine, cervical, anterior approach, with fusion 4.1zeu34fu Variable screw FDA Start: 02-03-2021 Discectomy, spine, cervical, anterior approach, with fusion 4.2ioo96uk Variable screw FDA Start: 10-06-2021 Discectomy, spine, cervical, anterior approach, with fusion Corelink 16.6ulh97pm -7 8mm FDA Start: 02-03-2021 Discectomy, spine, cervical, anterior approach, with fusion Corelink [id number] 9mm FDA Start: 02-03-2021 Goals Date Patient Goal Desired Activity /State Functional Status Date Assessment Result Facility 05-08-2021 Functional status Ambulates;Gibson r;Bathroom Privilege [facility] Work Phone: Mental Status Date Assessment Result Facility 05-10-2021 Cognitive function Awake;Alert;A ppropriate;Fol lows Commands [facility] Work Phone: 05-08-2021 Cognitive function Voice/Name [facility] Work Phone: Clinical Notes 06-21-2022 to 10-29-2024 Note Date & Type Note Facility 10-29-2024 Evaluation note Diagnosis Onset Date Resolution Asthma acute November 21 10:54am Left lumbar radiculitis acute [facility] 2024 10:54am Obstructive sleep apnea acute [facility] 2024 10:54am Fatty liver noneactive November 21 10:54am Mixed hyperlipidemia noneactive November 21, 2024 10:54am Essential hypertension noneactive [facility] 2024 10:54am Anxiety and depression noneactive [facility] 2024 10:54am Bilateral knee pain noneactive November 21, 2024 10:54am [facility] Work Phone: [phone] 509-390503-03-2025 History of Present illness Narrative* Teddy Carmona, RT(R) - 07/01/2024 11:30 AM EST Radiology Service Progress Note PATIENT NAME: Saleem Hobbs DATE OF SERVICE: July 01, 2024 TIME: 11:29 AM PATIENT IDENTITY VERIFICATION COMPLETED USING TWO (2) IDENTIFIERS: Name and Date of confirmedby patient verbally. FALL SCREENING: Has the patient had 2 falls in the last year or 1 fall with injury or currently using an Ambulatory Assistive Device (Walker, Cane, Wheelchair, Crutches, etc.)? No PATIENT GENDER DATA: Assigned male at PATIENT RELEVANT IMPLANT DATA REVIEWED: Yes PATIENT PRESENTS WITH AN IMPLANTABLE OR ATTACHED DISHTANK OPERATOR: No RADIOLOGY DEPARTMENT: General X-ray: Exam(s) Completed: Chest X-Ray PERIPHERAL IV DATA: Not applicable SIGNED BY: RT Arsalan(Tyrel) July 01, 2024 11:29 AM documented [facility]25 NoteHNO ID: [id number] Author: TEDDY CARMONA RT(R) Service: ? Author Type: Diagnostic Radiologist Type: Progress Notes Filed: 07/01/2024 11:29 Note Text: Radiology Service Progress Note PATIENT NAME: Saleem Hobbs DATE OF SERVICE: July 01, 2024 TIME: 11:29 AM PATIENT IDENTITY VERIFICATION COMPLETED USING TWO (2) IDENTIFIERS: Name and Date of confirmed by patient verbally. FALL SCREENING: Has the patient had 2 falls in the last year or 1 fall with injury or currently using an Ambulatory Assistive Device (Walker, Cane, Wheelchair, Crutches, etc.)? No PATIENT GENDER DATA: Assigned male at PATIENT RELEVANT IMPLANT DATA REVIEWED: Yes PATIENT PRESENTS WITH AN IMPLANTABLE OR ATTACHED DISHTANK OPERATOR: No RADIOLOGY DEPARTMENT: General X-ray: Exam(s) Completed: Chest X-Ray PERIPHERAL IV DATA: Not applicable SIGNED BY: RT Arsalan(Tyrel) July 01, 2024 11:29 [facility]03-03-2025 NoteHNO ID: [id number] Author: CAPO PEOPLES PA Service: ? Author Type: Physician Hand Spray Operator Type: Progress Notes Filed: 07/01/2024 11:45 Note Text: This note was created using [employer]. Subjective Saleem Hobbs is a 58 year old male. HPI 58-year-old male presents for cough. Patient has had a cough for the past week. He states that he feels congested in his chest. Occasionally he coughs up some phlegm. No shortness of breath or chest pain. No history of COPD or asthma. States he has been given an inhaler in the past when he was sick, has used this, but it has not helped with symptoms. Reports nasal congestion about a week ago, but that improved. Patient states he had fevers, chills last week, but those improved. The only symptom that is lingering is cough which seems to be worsening. No other complaint. History reviewed. No pertinent past medical history. No past surgical history on file. ALLERGIES Patient has no known allergies. MEDICATIONS albuterol HFA (PROAIR HFA) 90 mcg/actuation inhaler Inhale 2 Puffs as instructed every 4 hours as needed. losartan 100 mg tablet Take 100 mg by mouth once daily. amLODIPine (NORVASC) 5 mg tablet Take by mouth once daily. atorvastatin (LIPITOR) 20 mg tablet Take 20 mg by mouth once daily. PARoxetine (PAXIL) 20 mg tablet Take 20 mg by mouth once daily. albuterol HFA (PROVENTIL HFA, VENTOLIN HFA) 90 mcg/actuation inhaler Inhale 2 Puffs as instructed every 4 hours as needed for wheezing/shortness of breath. benzonatate (TESSALON PERLE) 100 mg capsule Take 1-2 capsules tid prn, no more than 6 in 24 hours. (Patient not taking: Reported on 05/07/2024) Aspirin 81 mg Tab Take 81 mg by mouth. (Patient not taking: Reported on 03/05/2021 ) DOCOSAHEXANOIC ACID/EPA (FISH OIL ORAL) Take by mouth. (Patient not taking: Reported on 03/05/2021 ) ERGOCALCIFEROL, VITAMIN D2, (VITAMIN D ORAL) Take by mouth. (Patient not taking: Reported on 03/05/2021 ) No family history on file. Social History Tobacco Use Smoking status: Never Smokeless tobacco: Never Review of Systems Constitutional: Negative for chills and fever. HENT: Negative for congestion and sore throat. Respiratory: Positive for cough. Negative for shortness of breath. Gastrointestinal: Negative for diarrhea and vomiting. Objective BP 122/80 Pulse 102 Temp 37.2 ?C (98.9 ?F) (Tympanic) Resp 16 Wt 111 kg (244 lb 11.4 oz) SpO2 97% Physical Exam Vitals and nursing note reviewed. Constitutional: General: He is not in acute distress. Appearance: Normal appearance. He is not toxic-appearing. HENT: Right Ear: Tympanic membrane and ear canal normal. Left Ear: Tympanic membrane and ear canal normal. Nose: Nose normal. Mouth/Throat: Mouth: Mucous membranes are moist. Eyes: Conjunctiva/sclera: Conjunctivae normal. Cardiovascular: Rate and Rhythm: Normal rate and regular rhythm. Pulmonary: Effort: Pulmonary effort is normal. Breath sounds: Wheezing (diffuse) and rhonchi (b/l lower lobes) present. Skin: General: Skin is warm and dry. Neurological: Mental Status: He is alert. Assessment and Plan ASSESSMENT/PLAN: 1. Acute cough - ICD9: 786.2, ICD10: R05.1 - XR CHEST 2V FRONTAL/LAT no acute radiographic abnormality -Suspect viral bronchitis -Rx prednisone taper -Continue inhaler -Follow-up with PCP for persistent symptoms Diagnosis and treatment plan were discussed and questions were answered to the patient's satisfaction. Pt acknowledged understanding of concepts and follow up plan. Specific signs and symptoms that would indicate the need for higher level of care were discussed in detail warranting prompt ER evaluation. Capo Peoples [facility] [place]03-03-2025 History of Present illness Narrative* Capo Peoples, PA - 07/01/2024 11:23 AM EST This note was created using [employer]. Subjective Saleem Hobbs is a 58 year old male. HPI 58-year-old male presents for cough. Patient has had a cough for the past week. He states that he feels congested in his chest. Occasionally he coughs up some phlegm. No shortness of breath or chest pain. No history of COPD or asthma. States he has been given an inhaler in the past when he was sick, has used this, but it has not helped with symptoms. Reports nasal congestion about a week ago,but that improved. Patient states he had fevers, chills last week, but those improved. The only symptom that is lingering is cough which seems to be worsening. No other complaint. History reviewed. No pertinent past medical history. No past surgical history on file. ALLERGIES Patient has no known allergies. MEDICATIONS albuterol HFA (PROAIR HFA) 90 mcg/actuation inhaler Inhale 2 Puffs as instructed every 4 hours as needed. losartan 100 mg tablet Take 100 mg by mouth once daily. amLODIPine (NORVASC) 5 mg tablet Take by mouth once daily. atorvastatin (LIPITOR) 20 mg tablet Take 20 mg by mouth once daily. PARoxetine (PAXIL) 20 mg tablet Take 20 mg by mouth once daily. albuterol HFA (PROVENTIL HFA, VENTOLIN HFA) 90 mcg/actuation inhaler Inhale 2 Puffs as instructed every 4 hours as needed for wheezing/shortness of breath. benzonatate (TESSALON PERLE) 100 mg capsule Take 1-2 capsules tid prn, no more than 6 in 24 hours. (Patient not taking: Reported on 05/07/2024) Aspirin 81 mg Tab Take 81 mg by mouth. (Patient not taking: Reported on 03/05/2021 ) DOCOSAHEXANOIC ACID/EPA (FISH OIL ORAL) Take by mouth. (Patient not taking: Reported on 03/05/2021 ) ERGOCALCIFEROL, VITAMIN D2, (VITAMIN D ORAL) Take by mouth. (Patient not taking: Reported on 03/05/2021 ) No family history on file. Social History Tobacco Use Smoking status: Never Smokeless tobacco: Never Review of Systems Constitutional: Negative for chills and fever. HENT: Negative for congestion and sore throat. Respiratory: Positive for cough. Negative for shortness of breath. Gastrointestinal: Negative for diarrhea and vomiting. Objective BP 122/80 Pulse 102 Temp 37.2 C (98.9 F) (Tympanic) Resp 16 Wt 111 kg (244 lb 11.4 oz) SpO2 97% Physical Exam Vitals and nursing note reviewed. Constitutional: General: He is not in acute distress. Appearance: Normal appearance. He is not toxic-appearing. HENT: Right Ear: Tympanic membrane and ear canal normal. Left Ear: Tympanic membrane and ear canal normal. Nose: Nose normal. Mouth/Throat: Mouth: Mucous membranes are moist. Eyes: Conjunctiva/sclera: Conjunctivae normal. Cardiovascular: Rate and Rhythm: Normal rate and regular rhythm. Pulmonary: Effort: Pulmonary effort is normal. Breath sounds: Wheezing (diffuse) and rhonchi (b/l lower lobes) present. Skin: General: Skin is warm and dry. Neurological: Mental Status: He is alert. Assessment and Plan ASSESSMENT/PLAN: 1. Acute cough - ICD9: 786.2, ICD10: R05.1 - XR CHEST 2V FRONTAL/LAT no acute radiographic abnormality -Suspect viral bronchitis -Rx prednisone taper -Continue inhaler -Follow-up with PCP for persistent symptoms Diagnosis and treatment plan were discussed and questions were answered to the patient's satisfaction. Pt acknowledged understanding of concepts and follow up plan. Specific signs and symptoms that would indicate the need for higher level of care were discussed in detail warranting prompt ER evaluation. ROSARIO Hauser [facility] History of Present illness Narrative* Lori Espinosa RT(R) - 05/07/2024 9:50 AM EST Radiology Service Progress Note PATIENT NAME: Saleem Hobbs DATE OF SERVICE: May 07, 2024 TIME: 9:57 AM PATIENT IDENTITY VERIFICATION COMPLETED USING TWO (2) IDENTIFIERS: Name and Date of confirmedby patient verbally. FALL SCREENING: Has the patient had 2 falls in the last year or 1 fall with injury or currently using an Ambulatory Assistive Device (Walker, Cane, Wheelchair, Crutches, etc.)? No PATIENT GENDER DATA: Male PATIENT RELEVANT IMPLANT DATA REVIEWED: Not Applicable PATIENT PRESENTS WITH AN IMPLANTABLE OR ATTACHED DISHTANK OPERATOR: No RADIOLOGY DEPARTMENT: General X-ray: Exam(s) Completed: Chest X-Ray PERIPHERAL IV DATA: Not applicable SIGNED BY: RT Shai(R) May 07, 2024 9:57 AM documented in this encounterTr[facility]01-07-2025 NoteHNO ID: [id number] Author: LORI ESPINOSA RT(Tyrel) Service: Radiology Author Type: Technologist Type: Progress Notes Filed: 05/07/2024 10:01 Note Text: Radiology Service Progress Note PATIENT NAME: Saleem Hobbs DATE OF SERVICE: May 07, 2024 TIME: 9:57 AM PATIENT IDENTITY VERIFICATION COMPLETED USING TWO (2) IDENTIFIERS: Name and Date of confirmed by patient verbally. FALL SCREENING: Has the patient had 2 falls in the last year or 1 fall with injury or currently using an Ambulatory Assistive Device (Walker, Cane, Wheelchair, Crutches, etc.)? No PATIENT GENDER DATA: Male PATIENT RELEVANT IMPLANT DATA REVIEWED: Not Applicable PATIENT PRESENTS WITH AN IMPLANTABLE OR ATTACHED DISHTANK OPERATOR: No RADIOLOGY DEPARTMENT: General X-ray: Exam(s) Completed: Chest X-Ray PERIPHERAL IV DATA: Not applicable SIGNED BY: Lori Espinosa RT(R) May 07, 2024 9:57 [facility]01-07-[facility]25 NoteHNO ID: [id number] Author: ENZO BOYCE PA-C Service: ? Author Type: Physician Hand Spray Operator Type: Progress Notes Filed: 05/07/2024 10:19 Note Text: This note was created using [email or web address]. Subjective Saleem Hobbs is a 58 year old male. Patient is a 58-year-old male complains of fever, chills, myalgia and cough that he has been experiencing for the past 5 days. Patient reports no congestion, sinus pressure or sore throat, although he does report ear pressure. Patient and his recently returned from [facility] via airline. Patient states that he did test positive for COVID-19 last month and had recovered well from that episode. Patient has no history of asthma or COPD and does not smoke. Cough Associated symptoms include chills and myalgias. Review of Systems Constitutional: Positive for chills and fever. Respiratory: Positive for cough. Musculoskeletal: Positive for myalgias. All other systems reviewed and are negative. Objective BP 132/80 Pulse 103 Temp 37.9 ?C (100.2 ?F) (Tympanic) Resp 16 Wt 110.8 kg (244 lb 4.3 oz) SpO2 97% Physical Exam Vitals and nursing note reviewed. Constitutional: Appearance: Normal appearance. He is normal weight. HENT: Head: Normocephalic and atraumatic. Right Ear: Tympanic membrane, ear canal and external ear normal. Left Ear: Tympanic membrane, ear canal and external ear normal. Nose: Nose normal. Mouth/Throat: Mouth: Mucous membranes are moist. Pharynx: Oropharynx is clear. Eyes: Extraocular Movements: Extraocular movements intact. Conjunctiva/sclera: Conjunctivae normal. Pupils: Pupils are equal, round, and reactive to light. Cardiovascular: Rate and Rhythm: Normal rate and regular rhythm. Pulses: Normal pulses. Heart sounds: Normal heart sounds. Pulmonary: Effort: Pulmonary effort is normal. Breath sounds: Normal breath sounds. Musculoskeletal: Cervical back: Normal range of motion and neck supple. Skin: General: Skin is warm and dry. Capillary Refill: Capillary refill takes less than 2 seconds. Neurological: General: No focal deficit present. Mental Status: He is alert and oriented to person, place, and time. Psychiatric: Mood and Affect: Mood normal. Behavior: Behavior normal. Thought Content: Thought content normal. Judgment: Judgment normal. Assessment and Plan Unremarkable physical exam findings as noted above. Influenza A/B/SARS-CoV-2/RSV PCR was ordered. Chest x-ray is negative for acute findings as reported by the radiologist. Patient was advised the results of the PCR will be received tomorrow and he will be contacted with any positive findings. Patient was provided with prescriptions for prednisone 20 mg, Tessalon 100 mg and an albuterol MDI. Supportive care instructions were discussed and patient verbalizes good understanding of same. CLINICAL IMPRESSION: Viral Illness; Recent Foreign Travel ASSESSMENT/PLAN: 1. Viral illness - ICD9: 079.99, ICD10: B34.9 (primary diagnosis) - COVID AND INFLUENZA A/B AND RSV PCR, ROUTINE - XR CHEST 2V FRONTAL/LAT - PREDNISONE 20 MG TABLET - BENZONATATE 100 MG CAPSULE - ALBUTEROL SULFATE HFA 90 MCG/ACTUATION AEROSOL INHALER - INHALATIONAL SPACING DEVICE 2. Recent foreign travel - ICD9: V49.89, ICD10: Z78.[address] [facility]01-07-2025 History of Present illness Narrative* Enzo Boyce PA-C - 05/07/2024 9:37 AM EST This note was created using [employer]. Subjective Saleem Hobbs is a 58 year old male. Patient is a 58-year-old male complains of fever, chills, myalgia and cough that he has been experiencing for the past 5 days. Patient reports no congestion, sinus pressure or sore throat, although he does report ear pressure. Patient and his recently returned from [facility] via airline.Patient states that he did test positive for COVID-19 last month and had recovered well from that episode. Patient has no history of asthma or COPD and does not smoke. Cough Associated symptoms include chills and myalgias. Review of Systems Constitutional: Positive for chills and fever. Respiratory: Positive for cough. Musculoskeletal: Positive for myalgias. All other systems reviewed and are negative. Objective BP 132/80 Pulse 103 Temp 37.9 C (100.2 F) (Tympanic) Resp 16 Wt 110.8 kg (244 lb 4.3 oz) SpO2 97% Physical Exam Vitals and nursing note reviewed. Constitutional: Appearance: Normal appearance. He is normal weight. HENT: Head: Normocephalic and atraumatic. Right Ear: Tympanic membrane, ear canal and external ear normal. Left Ear: Tympanic membrane, ear canal and external ear normal. Nose: Nose normal. Mouth/Throat: Mouth: Mucous membranes are moist. Pharynx: Oropharynx is clear. Eyes: Extraocular Movements: Extraocular movements intact. Conjunctiva/sclera: Conjunctivae normal. Pupils: Pupils are equal, round, and reactive to light. Cardiovascular: Rate and Rhythm: Normal rate and regular rhythm. Pulses: Normal pulses. Heart sounds: Normal heart sounds. Pulmonary: Effort: Pulmonary effort is normal. Breath sounds: Normal breath sounds. Musculoskeletal: Cervical back: Normal range of motion and neck supple. Skin: General: Skin is warm and dry. Capillary Refill: Capillary refill takes less than 2 seconds. Neurological: General: No focal deficit present. Mental Status: He is alert and oriented to person, place, and time. Psychiatric: Mood and Affect: Mood normal. Behavior: Behavior normal. Thought Content: Thought content normal. Judgment: Judgment normal. Assessment and Plan Unremarkable physical exam findings as noted above. Influenza A/B/SARS-CoV-2/RSV PCR was ordered. Chest x-ray is negative for acute findings as reported by the radiologist. Patient was advised the results of the PCR will be received tomorrow and he will be contacted with any positive findings. Patient was provided with prescriptions for prednisone 20 mg, Tessalon 100 mg and an albuterol MDI. Supportive care instructions were discussed and patient verbalizes good understanding of same. CLINICAL IMPRESSION: Viral Illness; Recent Foreign Travel ASSESSMENT/PLAN: 1. Viral illness - ICD9: 079.99, ICD10: B34.9 (primary diagnosis) - COVID & INFLUENZA A/B & RSV PCR, ROUTINE - XR CHEST 2V FRONTAL/LAT - PREDNISONE 20 MG TABLET - BENZONATATE 100 MG CAPSULE - ALBUTEROL SULFATE HFA 90 MCG/ACTUATION AEROSOL INHALER - INHALATIONAL SPACING DEVICE 2. Recent foreign travel - ICD9: V49.89, ICD10: Z78.9 Enzo Boyce PA-C documented in [facility] Diagnosis Onset Date Resolution Status Segmental and somatic dysfunction of cervical region acute Segmental and somatic dysfunction of lumbar region acute Segmental and somatic dysfunction of thoracic region acute Hx of fusion of cervical spine chronic Scoliosis of lumbar spine ch ronic HNP (herniated nucleus pulposus), cervical acute Hx of fusion of cervical spine chronic Segmental and somatic dysfunction of cervical region acute Segmental and somatic dysfunction of lumbar region acute Segmental and somatic dysfunction of thoracic region acute Hx of fusion of cervical spine chronic Scoliosis of lumbar spine ch ronic Segmental and somatic dysfunction of lumbar region acute Segmental and somatic dysfunction of pelvic region acute Segmental and somatic dysfunction of thoracic region acute Hx of fusion of cervical spine chronic Scoliosis of lumbar spine ch ronic Segmental and somatic dysfunction of lumbar region acute Segmental and somatic dysfunction of pelvic region acute Segmental and somatic dysfunction of thoracic region acute Hx of fusion of cervical spine chronic Scoliosis of lumbar spine ch ronic Segmental and somatic dysfunction of lumbar region acute Segmental and somatic dysfunction of pelvic region acute Segmental and somatic dysfunction of thoracic region acute Hx of fusion of cervical spine chronic Scoliosis of lumbar spine ch ronic Segmental and somatic dysfunction of lumbar region acute Segmental and somatic dysfunction of pelvic region acute Segmental and somatic dysfunction of thoracic region acute Hx of fusion of cervical spine chronic Scoliosis of lumbar spine ch ronic Segmental and somatic dysfunction of lumbar region acute Segmental and somatic dysfunction of pelvic region acute Segmental and somatic dysfunction of thoracic region acute Scoliosis of lumbar spine [facility] Work Phone: Evaluation note* Diagnosis Onset Date Resolution Status Segmental and somatic dysfunction of cervical region acute Segmental and somatic dysfunction of lumbar region acute Segmental and somatic dysfunction of thoracic region acute Hx of fusion of cervical spine chronic Scoliosis of lumbar spine ch ronic Segmental and somatic dysfunction of lumbar region acute Segmental and somatic dysfunction of pelvic region acute Segmental and somatic dysfunction of thoracic region acute Hx of fusion of cervical spine chronic Scoliosis of lumbar spine ch ronic Segmental and somatic dysfunction of lumbar region acute Segmental and somatic dysfunction of pelvic region acute Segmental and somatic dysfunction of thoracic region acute Hx of fusion of cervical spine chronic Scoliosis of lumbar spine ch ronic Segmental and somatic dysfunction of lumbar region acute Segmental and somatic dysfunction of pelvic region acute Segmental and somatic dysfunction of thoracic region acute Hx of fusion of cervical spine chronic Scoliosis of lumbar spine ch ronic Segmental and somatic dysfunction of lumbar region acute Segmental and somatic dysfunction of pelvic region acute Segmental and somatic dysfunction of thoracic region acute Hx of fusion of cervical spine chronic Scoliosis of lumbar spine ch ronic Segmental and somatic dysfunction of lumbar region acute Segmental and somatic dysfunction of pelvic region acute Segmental and somatic dysfunction of thoracic region acute Scoliosis of lumbar spine ch ronic S/P cervical spinal fusion a cute [facility] Work Phone: Evaluation noteNo assessment information available [facility] Work Phone: Evaluation note* Diagnosis Onset Date Resolution Status Abnormal chest CT acute Abnormal chest CT acute Asthma acute [facility] Work Phone: Evaluation note* Diagnosis Onset Date Resolution Status Abnormal chest CT acute Asthma acute Asthma acute Left lumbar radiculitis acut e Obstructive sleep apnea acut e Screening for colon cancer n oneactive Immunization due noneactive Establishing care with new doctor, encounter for noneactive Mixed hyperlipidemia noneact steffany Essential hypertension nonea ctive Anxiety and depression nonea ctive Bilateral knee pain noneacti ve [facility] Work Phone: Evaluation note* Diagnosis Viral illness- Primary Unspecified viral infection, in conditions classified elsewhere and of unspecified site Recent foreign [facility] Diagnosis Acute cough- Primary Acute cough [facility] Acute cough documented in this encounter [facility] for referral (narrative)No reason for referral [facility] Chief Complaint and Reason for Visit Chief Complaint Back pain SYNCOPE BACK Syncope Syncope COVID POS Cervical spine xray Neck pain Neck pain RUQ ABD PAIN Neck pain Back pain Back pain Back pain LUMBAR SPINE Reason for Visit Segmental and somati c dysfunction of cervical region Segmental and somatic dysfunction of lumbar region Segmental and somatic dysfunction of thoracic region Hx of fusion of cervical spine Scoliosis of lumbar spine HNP (herniated nucleus pulposus), cervical Hx of fusion of cervical spine Segmental and somatic dysfunction of cervical region Segmental and somatic dysfunction of lumbar region Segmental and somatic dysfunction of thoracic region Hx of fusion of cervical spine Scoliosis of lumbar spine Segmental and somatic dysfunction of lumbar region Segmental and somatic dysfunction of pelvic region Segmental and somatic dysfunction of thoracic region Hx of fusion of cervical spine Scoliosis of lumbar spine Segmental and somatic dysfunction of lumbar region Segmental and somatic dysfunction of pelvic region Segmental and somatic dysfunction of thoracic region Hx of fusion of cervical spine Scoliosis of lumbar spine Segmental and somatic dysfunction of lumbar region Segmental and somatic dysfunction of pelvic region Segmental and somatic dysfunction of thoracic region Hx of fusion of cervical spine Scoliosis of lumbar spine Segmental and somatic dysfunction of lumbar region Segmental and somatic dysfunction of pelvic region Segmental and somatic dysfunction of thoracic region Hx of fusion of cervical spine Scoliosis of lumbar spine Segmental and somatic dysfunction of lumbar region Segmental and somatic dysfunction of pelvic region Segmental and somatic dysfunction of thoracic region Scoliosis of lumbar spine Chief Complaint Neck pain Neck pain RUQ ABD PAIN Neck pain Back pain Back pain Back pain LUMBAR SPINE CERVICAL SPINE xray Reason for Visit Segmental and somati c dysfunction of cervical region Segmental and somatic dysfunction of lumbar region Segmental and somatic dysfunction of thoracic region Hx of fusion of cervical spine Scoliosis of lumbar spine Segmental and somatic dysfunction of lumbar region Segmental and somatic dysfunction of pelvic region Segmental and somatic dysfunction of thoracic region Hx of fusion of cervical spine Scoliosis of lumbar spine Segmental and somatic dysfunction of lumbar region Segmental and somatic dysfunction of pelvic region Segmental and somatic dysfunction of thoracic region Hx of fusion of cervical spine Scoliosis of lumbar spine Segmental and somatic dysfunction of lumbar region Segmental and somatic dysfunction of pelvic region Segmental and somatic dysfunction of thoracic region Hx of fusion of cervical spine Scoliosis of lumbar spine Segmental and somatic dysfunction of lumbar region Segmental and somatic dysfunction of pelvic region Segmental and somatic dysfunction of thoracic region Hx of fusion of cervical spine Scoliosis of lumbar spine Segmental and somatic dysfunction of lumbar region Segmental and somatic dysfunction of pelvic region Segmental and somatic dysfunction of thoracic region Scoliosis of lumbar spine S/P cervical spinal fusion Chief Complaint LUMBAR ARTHROPATHY, DEGENERATION, 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 Reason for Visit Abnormal chest CT Asthma Asthma Left lumbar radiculitis Obstructive sleep apnea Screening for colon cancer Immunization due Establishing care with new doctor, encounter for Mixed hyperlipidemia Essential hypertension Anxiety and depression Bilateral knee pain Chief Complaint 1 M FU [employer]. 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 Reason for Visit Abnormal chest CT Asthma Asthma Left lumbar radiculitis Obstructive sleep apnea Screening for colon cancer Immunization due Establishing care with new doctor, encounter for Mixed hyperlipidemia Essential hypertension Anxiety and depression Bilateral knee pain Chief Complaint Admit Date 6 M FU November 21, 2024 10:5 4am Reason for Visit Admit Date Asthma November 21, 2024 10:5 4am Left lumbar radiculitis November 21, 2024 10:54am Obstructive sleep apnea November 21, 2024 10:54am Fatty liver November 21, 2024 10:5 4am Mixed hyperlipidemia November 21, 2024 10: 54am Essential hypertension November 21, 2024 1 0:54am Anxiety and depression November 21, 2024 1 0:54am Bilateral knee pain November 21, 2024 10:5 4am Family History Relationship Condition Age at Onset Recorded Date/T griselda Not Specified Arthritis Unknown Cardiac disease Unknown Malignant neoplasm Unknown Hypertension Unknown Relationship Condition Age at Onset Recorded Date/T griselda Not Specified Arthritis Unknown grandfather Alcoholism Unknown father History of blood transfusion Unknown Diabetes mellitus Unknown Myocardial infarction Unknown Cardiac disease Unknown Hypertension Unknown Malignant melanoma Unknown grandmother Malignant neoplasm of breast Unknown Malignant neoplasm Unknown brother High blood cholesterol Unknown mother Osteoporosis Unknown Advance Directives Advance Directive Response Recorded Date/ Time Name of Medical Power of [employer]urb[employer] Installer terrance hobbs May 06, 2021 6:47pm Advance Directives No December 2:56am Living Will Yes June 13 12:51pm Power of [employer]urb[employer] Installer Yes June 13, 2021 12:51pm Advance Directive Response Recorded Date/ Time Advance Directives No December 2:56am Living Will Yes June 13 12:51pm Power of [employer]urb[employer] Installer Yes June 13, 2021 12:51pm Advance Directive Response Recorded Date/ Time Advance Directives No December 1:56am Living Will Yes June 13 11:51am Power of [employer]urb[employer] Installer Yes June 13, 2021 11:51am Advance Directive Response Recorded Date/ Time Advance Directives No November 20 3:58pm Summary Purpose Additional Source Comments Care Teams (unrecognized sec tion and content) Team Status: Active Member Role Status Dates Dr. Darin Sharma MD Family Provider Active Dr. Darin Sharma MD Primary Care Provider Active Team Status: Inactive Member Role Status Dates Dr. Darin Sharma MD Primary Care Provider Active Deborah Gillespie NP, [employer]-C Attending Provider, Referring Pr ovider Active Team Status: Active Member Role Status Dates Dr. Darin Sharma MD Primary Care Provider Active Dr. Enzo Olivo DO Attending Provider Active Team Status: Inactive Member Role Status Dates Dr. Darin Sharma MD Primary Care Provider, Referring Provider Active Dr. Alirio Byrd DO Attending Provider Active Team Status: Active Member Role Status Dates Dr. Darin Sahrma MD Primary Care Provider Active Dr. Alirio Byrd DO Attending Provider, Other Provide r Active Team Status: Inactive Member Role Status Dates Dr. Darin Sharma MD Primary Care Provider Active Dr. Enzo Olivo DO Attending Provider Active Team Status: Inactive Member Role Status Dates Dr. Darin Sharma MD Primary Care Provider Active Dr. Alirio Byrd DO Attending Provider Active Team Status: Active Member Role Status Dates Dr. Darin Sharma MD Family Provider Active Dr. [place] Arzate MD Primary Care Provider Active Team Status: Active Member Role Status Dates Dr. Darin Sharma MD Primary Care Provider Active Dr. Alirio Byrd DO Attending Provider, Referring Provider, Other Provider Active Team Status: Inactive Member Role Status Dates Dr. Darin Sharma MD Referring Provider Active Dr. [place] Arzate MD Primary Care Provider, Attendi ng Provider Active Team Status: Inactive Member Role Status Dates Guerda Stanley [employer]-C Attending Provider, Referring Pro vider Active Dr. [place] Arzate MD Primary Care Provider Active Team Status: Inactive Member Role Status Dates Dr. Washington Arzate MD Primary Care Pro vider, Attending Provider, Referring Provider Active [employer] Relationship Specialty Start Date End Date Washington Arzate MD [address] [place] [address] PCP - General Internal Medicine 05/07/24 [employer] Relationship Specialty Start Date End Date Washington Arzate MD [address] [place] [address] PCP - General Internal Medicine 05/07/24 [employer] Relationship Specialty Start Date End Date Washington Arzate MD [address] [place] [address] PCP - General Internal Medicine 05/07/24 [employer] Relationship Specialty Start Date End Date Washington Arzate MD [address] [place], [place] [address] PCP - General Internal Medicine 05/07/24 Team Status: Active Member Role/Relationship Status Dates Dr. Darin Sharma MD Family Provider Active Dr. [place] Arzate MD Primary Care Provider Active Team Status: Inactive Member Role/Relationship Status Dates Dr. [place] Arzate MD Primary Care Provider Active Start: November 21, 2024 End: November 21, 2024 Dr. [place] Arzate MD Attending Provider Active Start: November 21, 2024 End: November 21, 2024 Dr. [place] Arzate MD Referring Provider Active Start: November 21, 2024 End: November 21, 2024 Source Comments (unrecognize d section and content) In the event this informatio n is protected by the Federal Confidentiality of Alcohol and Drug Abuse Patient Records regulations: The Federal rules restrict any use of the information to criminally investigate or prosecute any alcohol or drug abuse patient.[facility] the event this information is protected by the Federal Confidentiality of Alcohol and Drug Abuse Patient Records regulations: The Federal rules restrict any use of the information to criminally investigate or prosecute any alcohol or drug abuse patient.[facility] the event this information is protected by the Federal Confidentiality of Alcohol and Drug Abuse Patient Records regulations: The Federal rules restrict any use of the information to criminally investigate or prosecute any alcohol or drug abuse patient.[facility] the event this information is protected by the Federal Confidentiality of Alcohol and Drug Abuse Patient Records regulations: The Federal rules restrict any use of the information to criminally investigate or prosecute any alcohol or drug abuse patient.[facility] Reason for Visit (unrecogniz ed section and content) Reason Comments Cough Cough, ST, chills an d BRAY x 5 days Reason Comments Cough Cough, chest congest ion, fatigue and fever x 1 week (unrecognized sect ion and content) No Status Records FoundNo Status Records Found INFORMATION SOURCE (unrecogn ized section and content) DATE CREATED AUTHOR 05/23/2024 [facility] DATE CREATED AUTHOR AUTHOR'Sammi FERNANDES 07/02/2024 [facility] FOR RECORDS PERTAINING TO PATIENTS WHO ARE OR HAVE BEEN ENROLLED IN A CHEMICAL DEPENDENCY/SUBSTANCEABUSE PROGRAM, SOME INFORMATION MAY BE OMITTED. This clinical summary was aggregated from multiple sources. Caution should be exercised in using it in the provision of clinical care. This summary normalizes information from multiple sources, and as a consequence, information in this document may materially change the coding, format and clinical context of patient data. In addition, data may be omitted in some cases. CLINICAL DECISIONS SHOULD BE BASED ON THE PRIMARY CLINICAL RECORDS. [employer] [facility]. provides no warranty or guarantee of the accuracy or completeness of information in this document.
[2024-11-22 12:33] LABS: Hematocrit 48.1 % (40-54); Hemoglobin 16.4 g/dL (13.0-16.5); Immature Granulocytes Count 0.020 X10^3/uL (0.0-0.0); Mean Corp Hgb Conc 34.1 g/dL (32-36); Mean Corpuscular Volume 91.8 fL (80-94); Mean Platelet Vol. 11.4 fl (6.2-12.0); NRBC Flagged by Analyzer 0 % (0-5); POSITIVE COUNT YES; RBC Distribution Width CV 12.4 % (11.6-14.6); RBC Distribution Width SD 42.1 fl (35.1-43.9); Red Blood Count 5.24 M/mm3 (4.6-6.2); White Blood Count 7.6 K/mm3 (4.4-11.0)
[2024-11-22 13:12] LABS: Differential Indicated SCAN CRITERIA MET
[2024-11-22 13:40] LABS: AST(SGOT) 28 U/L (<=37); Alanine Aminotransfer ALT/SGPT 45 U/L (<=46); Albumin, Serum 4.6 g/dL (3.5-5.0); Alkaline Phosphatase 177 U/L (40-129); Anion Gap 13 (5-15); BUN 17 mg/dL (4-19); BUN/Creat Ratio 18.6 RATIO (10-20); Calcium,Total 9.7 mg/dL (7.6-11.0); Carbon Dioxide 24.2 mmol/L (21.0-32.0); Chloride 101 mmol/L (98-108); Cholesterol 131 mg/dL (<=200); Globulin 3.1 g/dL (2.2-4.2); Glucose 97 mg/dL (70-99); Low Density Lipoprotein Calc. 75 mg/dL; Potassium 4.7 mmol/L (3.3-5.1); Triglycerides 125 mg/dL; Very Low Density Lipoprotein 25 mg/dL (5-40); cholesterol:hdl ratio screen 4.24
== END | disposition home or self-care (01) ==
LOC: BIMLAB 09:02
PROVIDERS: PCP Internal Medicine; Referring Provider Internal Medicine; Visit Provider Internal Medicine
DX: I10 Essential (primary) hypertension (principal); E78.2 Mixed hyperlipidemia; K76.0 Fatty (change of) liver, not elsewhere classified; N52.9 Male erectile dysfunction, unspecified
CPT/HCPCS: 36415; 80053; 80061; 84402; 84443; 85025

== ENCOUNTER → 2024-12-06 | Outpatient (CLI) | payer OTHER, SELFPAY ==
--- OUTSIDE RECORDS SUMMARY | 2024-12-06 11:10 | XMS RPT_ITS | CCD ---
Author Organization [facility] Care Team Providers Care Ip Counsel Name Role Phone Dr. Darin Sharma Primary Care Provider Dr. Darin Sharma Referring Provider 1([facility])[phone] Zandra Reeder Attending Provider 1([facility])[phone] Meghan Garcia Emergency Provider Dr. Gael Chaves Attending Provider 1([facility])[phone] BelDr. Lenin melissa Attending Provider 1([facility])[phone] Gael Chaves Admit Provider Dr. Caridad Martinez Attending Provider Dr. Caridad Martinez Other Provider Dr. Dharmesh Bonilla Attending Provider 1([facility])[phone] Dr. Kyle Hatfield Attending Provider 1([facility])-[phone] Dharmesh Bonilla Referring Provider 1([facility])[phone] Dr. Darin Sharma Primary Care Provider 1([facility])[phone] Dr. Darin Sharma Referring Provider 1([facility])[phone] Zandra Reeder Attending Provider [phone] Dharmesh Bonilla Attending Provider Dr. Kyle Hatfield Attending Provider 1([facility])[phone] Darin Sharma Primary Care Provider Dr. Darin Sharma Referring Provider Dr. Alirio Byrd Attending Provider 1([facility])[phone] Alirio Byrd Other Provider Dr. Darin Sharma Primary Care Provider Dr. Alirio Byrd Attending Provider Dr. Alirio Byrd Referring Provider Dr. Alirio Byrd Other Provider Dr. Darin Sharma Referring Provider Dr. Washington Arzate Primary Care Provider Dr. Washington Arzate Attending Provider Dr. Darin Sharma Primary Care Provider Dr. Alirio Byrd Attending Provider Huey JOAQUIN, Washington Hurley Primary Care Provider [phone] CHON PEOPLES Referring Unavailable HUEY, WASHINGTON G Primary Care Unavailable HUEY, WASHINGTON G Primary Care Unavailable CLUTTER, ENZO Referring Unavailable HUEY, WASHINGTON G Primary Care Unavailable HUEY, WASHINGTON G Primary Care Unavailable Huey JOAQUIN, Dr. Dewitt Primary Care Provider [phone] Dr. Washington Arzate MD Attending Provider Dr. Washington Arzate MD Referring Provider Wakefield, Washington Referring Unavailable Huey, Washington Primary Care Unavailable Wakefield, Washington Attending Unavailable Ferullo, Nanci Attending Unavailable Ferullo, Nanci Referring Unavailable Huey, Washington Primary Care Unavailable Wakefield, Washington Primary Care Unavailable Ferullo, Nanci Attending Unavailable Ferullo, Nanci Referring Unavailable Huey, Washington Attending Unavailable Huey, Washington Referring Unavailable Wakefield, Washington Primary Care Unavailable Huey, Washington Referring Unavailable Huey, Washington Primary Care Unavailable Wakefield, Washington Attending Unavailable Allergies Allergy Classification Reported Allergen(s) Allergy Type Date of Onset Reaction(s) Facility (7 sources) Sugammadex Drug Allergy 2 Low blood pressure [facility] (1 source) Sugammadex Drug Allergy 5 [facility] Repository Medications Current Medications Medication Drug Class(es) Dates Sig (Normalized) Sig (Original) [id number] 200 actuat albuterol 0.09 mg/actuat metered dose [...] mg PO DAILY January 05, 2016 12:00am Sunni 21st, 2022 2:08pm BP PARoxetine hydrochloride 40 mg oral [...] three times a day; for five days Ilodp-2c-Ech-Epa-Fis h Oil (6 sources) Start: 01-05-2016 End: 03-14-2019 Xdqqe-0e-Azi-Epa-Fish Oil Discontinued 1 EACH PO DAILY January 05, 2016 12:28am March 14, 2019 1:51pm Start: 01-05-2016 End: 03-14-2019 Dxqzt-7i-Bad-Epa-Fish Oil Di scontinued 1 EACH PO DAILY January 05, 2016 12:00am March 14, 2019 1:51pm Start: 01-05-2016 End: 03-14-2019 Urrna-2y-Oaz-Epa-Fish Oil Di scontinued 1 EACH PO DAILY January 04, 2016 11:00pm March 14, 2019 12:51pm Vkfgv-9m-Doc-Epa-Fish Oil 1 EACH capsule (1 source) Start: 01-05-2016 End: 03-14-2019 take 1 capsule by mouth once daily Zgyjc-5e-Zvf-Epa-Fish Oil 1 EACH capsule Discontinued 1 NMA PO DAILY January 05, 2016 12:00am March 14, 2019 1:51pm ondansetron 4 mg disintegrating oral tablet (7 sources) Serotonin-3 Receptor Antagonist Start: 06-13-2021 End: 09-03-2021 take 1 tablet by mouth every eight hours as needed for nausea and vomiting Ondansetron 4 mg tablet,disintegrating Discontinued 4 mg PO Q8H as needed for nausea and vomiting 10 0 June 13, 2021 1:00am September 03, 2021 [...] 2021 12:00am September 03, 2021 12:03pm Problems Active Problems Problem Classification Problem Date Documented Da te Episodic/Chronic Administrative/social admission (2 sources) Persons encountering health services in other specified circumstances; Translations: [Other reasons for seeking consultation] 09-27-2022 Episodic Anxiety disorders (4 sources) Anxiety disorder, unspecified; Translations: [Anxiety state, unspecified] 09-27-2022 Chronic Asthma (10 sources) Asthma; Translations: [Unspecified asthma, uncomplicated] 06-28-2022 Chronic Disorders of lipid metabolism (5 sources) Mixed hyperlipidemia; Translations: [Mixed hyperlipidemia] Onset: 11-21-2024 09-27-2022 Chronic Essential hypertension (11 sources) Benign essential hypertension; Translations: [Essential (primary) hypertension] Onset: 11-26-2024 03-14-2019 Chronic Immunizations and screening for infectious [...] liver, not elsewhere classified] 11-21-2024 Chronic Other liver diseases (1 source) Fatty (change of) liver, not elsewhere classified; Translations: [Fatty (change of) liver, not elsewhere classified] Onset: 11-21-2024 Chronic Other lower respiratory disease (2 sources) Cough; Translations: [Acute cough] 07-01-2024 Episodic Other male genital disorders (1 source) Male erectile dysfunction, unspecified; Translations: [Male erectile dysfunction, unspecified] Onset: 11-21-2024 Chronic Other non-traumatic joint disorders (3 sources) Pain [...] Chronic Comment on above: lung nodules Other upper respiratory disease (3 sources) Seasonal [...] disease; Translations: [Viral infection, unspecified] 05-07-2024 Episodic Past or Other Problems Problem Classification Problem Date Documented Da te Episodic/Chronic Other screening for suspected conditions (not mental disorders or infectious disease) (5 sources) Encounter for screening for malignant neoplasm of colon; Translations: [Special screening for malignant neoplasms of colon] Onset: 01-09-2024 09-27-2022 Episodic Results Test Name Value Interpretation Reference Range Facility Testosterone Free 11-28-19 25 TESTOSTER FREE 4.8 pg/mL Abnormal 7.2-24.0 [facility] Comment on above: Result Comment: Perf ormed at: [facility] [id number] [employer] Counter Clerk: Jhoan Almonte MD, Phone: [phone] Performed By: #### L 501.9910, L500.4050, L500.4100, L100.0100 #### [facility] [address] [place], [address] CBC W/Diff, Automatedon 10-30 PLT EST ADEQUATE Normal ADEQ [facility] Comment on above: Performed By: #### L 100.0100, L501.9520, L3400.4800, L500.4100, L500.4050 #### [facility] [address] [place], [address] Comprehensive Metabolic Prof tnon 11-22-2024 Albumin [Mass/Vol] 4.6 g/dL Normal 3.5-5.0 [facility] Comment on above: Performed By: #### L 100.0100, L501.9520, L3400.4800, L500.4100, L500.4050 #### [facility] [address] [place], [address] Albumin/Globulin [Mass ratio] 1.5 {ratio} Normal 0.9-2.4 [facility] Comment on above: Performed By: #### L 100.0100, L501.9520, L3400.4800, L500.4100, L500.4050 #### [facility] [address] [place], [address] ALK PHOS 177 U/L High 40-129 [facility] Comment on above: Performed By: #### L 100.0100, L501.9520, L3400.4800, L500.4100, L500.4050 #### [facility] [address] [place], [address] ALT [Catalytic activity/Vol] 45 U/L Normal <=46 [facility] Comment on above: Performed By: #### L 100.0100, L501.9520, L3400.4800, L500.4100, L500.4050 #### [facility] [address] [place], [address] AST [Catalytic activity/Vol] 28 U/L Normal <=37 [facility] Comment on above: Performed By: #### L 100.0100, L501.9520, L3400.4800, L500.4100, L500.4050 #### [facility] [address] [place], [address] Bilirubin [Mass/Vol] 0.87 mg/dL Normal 0.00-1.30 [facility] Comment on above: Performed By: #### L 100.0100, L501.9520, L3400.4800, L500.4100, L500.4050 #### [facility] [address] [place], [address] BUN/CRE 18.6 RATIO Normal 10-20 [facility] Comment on above: Performed By: #### L 100.0100, L501.9520, L3400.4800, L500.4100, L500.4050 #### [facility] [address] [place], [address] Calcium [Mass/Vol] 9.7 mg/dL Normal 7.6-11.0 [facility] Comment on above: Performed By: #### L 100.0100, L501.9520, L3400.4800, L500.4100, L500.4050 #### [facility] [address] [place], [address] Chloride [Moles/Vol] 101 mmol/L Normal 98-108 [facility] Comment on above: Performed By: #### L 100.0100, L501.9520, L3400.4800, L500.4100, L500.4050 #### [facility] [address] [place], [address] CO2 [Moles/Vol] 24.2 mmol/L Normal 21.0-32.0 [facility] Comment on above: Performed By: #### L 100.0100, L501.9520, L3400.4800, L500.4100, L500.4050 #### [facility] [address] [place], [address] Creatinine [Mass/Vol] 0.91 mg/dL Normal 0.70-1.20 [facility] Comment on above: Performed By: #### L 100.0100, L501.9520, L3400.4800, L500.4100, L500.4050 #### [facility] [address] [place], [address] GAP 13 Normal 5-15 [facility] Comment on above: Performed By: #### L 100.0100, L501.9520, L3400.4800, L500.4100, L500.4050 #### [facility] [address] [place], [address] GFR/1.73 sq M.predicted among non-blacks MDRD (S/P/Bld) [Vol rate/Area] 97 mL/min/{1.73_m2} Normal >60 [facility] Comment on above: Result Comment: mL/m in/1.73m2 CKD-EPI Creatinine Equation (2020) Performed By: #### L 100.0100, L501.9520, L3400.4800, L500.4100, L500.4050 #### [facility] [address] [place], [address] Globulin (S) [Mass/Vol] 3.1 g/dL Normal 2.2-4.2 [facility] Comment on above: Performed By: #### L 100.0100, L501.9520, L3400.4800, L500.4100, L500.4050 #### [facility] [address] [place], [address] Glucose [Mass/Vol] 97 mg/dL Normal 70-99 [facility] Comment on above: Performed By: #### L 100.0100, L501.9520, L3400.4800, L500.4100, L500.4050 #### [facility] [address] [place], [address] Potassium [Moles/Vol] 4.7 mmol/L Normal 3.3-5.1 [facility] Comment on above: Performed By: #### L 100.0100, L501.9520, L3400.4800, L500.4100, L500.4050 #### [facility] [address] [place], [address] Sodium [Moles/Vol] 138 mmol/L Normal 133-145 [facility] Comment on above: Performed By: #### L 100.0100, L501.9520, L3400.4800, L500.4100, L500.4050 #### [facility] [address] [place], [address] T PROT 7.8 g/dL Normal 5.9-8.4 [facility] Comment on above: Performed By: #### L 100.0100, L501.9520, L3400.4800, L500.4100, L500.4050 #### [facility] [address] [place], [address] Urea nitrogen [Mass/Vol] 17 mg/dL Normal 4-19 [facility] Comment on above: Performed By: #### L 100.0100, L501.9520, L3400.4800, L500.4100, L500.4050 #### [facility] [address] [place], [address] Lipid Profileon 11-22-2024 CHOL:HDL 4.24 Normal [facility] Comment on above: Performed By: #### L 100.0100, L501.9520, L3400.4800, L500.4100, L500.4050 #### [facility] [address] [place], [address] Cholesterol [Mass/Vol] 131 mg/dL Normal <=200 [facility] Comment on above: Result Comment: Chol esterol level, Desirable <200 mg/dL Borderline high cholesterol 200-239 mg/dL High cholesterol >=240 mg/dL Recommendations of the NCEP Adult Treatment Panel for the following risk-cutoff thresholds for the [place] population. Performed By: #### L 100.0100, L501.9520, L3400.4800, L500.4100, L500.4050 #### [facility] [address] [place], [address] Cholesterol in HDL [Mass/Vol] 31 mg/dL Low [facility] Comment on above: Result Comment: Jennifer onal Cholesterol Education Program (NCEP) guidelines: <40 mg/dL: Low HDL-cholesterol (major risk factor for CHD) >= 60 mg/dL: High HDL-cholesterol (negative risk factor for CHD) HDL-cholesterol is affected by a number of factors, e.g. smoking, exercise, hormones, sex and age. Performed By: #### L 100.0100, L501.9520, L3400.4800, L500.4100, L500.4050 #### [facility] [address] [place], [address] Cholesterol in LDL [Mass/Vol] 75 mg/dL Normal [facility] Comment on above: Result Comment: Bord mmszno=111-609 mg/dL Higher Awrt=051 mg/dL or greater Performed By: #### L 100.0100, L501.9520, L3400.4800, L500.4100, L500.4050 #### [facility] [address] [place], [address] Cholesterol in VLDL [Mass/Vol] 25 mg/dL Normal 5-40 [facility] Comment on above: Performed By: #### L 100.0100, L501.9520, L3400.4800, L500.4100, L500.4050 #### [facility] [address] [place], [address] Triglyceride [Mass/Vol] 125 mg/dL Normal [facility] Comment on above: Result Comment: The drugs N-Acetylcysteine and Metamizole may falsely depress this assay. Normal range: <150 mg/dL Borderline High: 150-199 mg/dL High: 200-499 mg/dL Very High: >500 mg/dL Performed By: #### L 100.0100, L501.9520, L3400.4800, L500.4100, L500.4050 #### [facility] [address] [place], [address] Thyroid Stim Hormone (TSH)on 11-22-2024 TSH 2.880 uIU/mL Normal 0.300-4.200 [facility] Comment on above: Performed By: #### L 501.9910, L500.4050, L500.4100, L100.0100 #### [facility] [address] [place], [address] Internal Medicine Office Vis iton 11-19-2024 Internal Medicine Office Visit [facility] [address] [place] [address] [place] [address] OFFICE VISIT Date of Service: 11/21/24 MR#: [id number] Acct: [id number] Name: SALEEM HOBBS Rep #: [id number] : 1965 Provider: Dr. Washington mills MD Age/Sex: 59/M Location: [facility] Status: Signed Intake Vital Signs 05/21/24 14:58 11/21/24 11:06 11/21/24 12:52 Height 6 ft 2 in 6 ft 2 in Weight: 250 lb BMI 32.1 BP 142/90 H 130/84 H Blood Pressure Location Lt brachial Position Sitting Respiration 16 Pulse 82 Pulse Source Monitor Temp 97.6 F L Temp Source Temporal Pulse Oximetry (%) 97 Oxygen Delivery Method room air Intake Visit Reasons: 6 M FU Chief Complaint: follow up Hotel Services Supervisor Required: No Is patient in pain?: No Allergies sugammadex Adverse Reaction (Severe, Verified 11/21/24 10:55) Low blood pressure Medications ???Medication ???Instructions ???Recorded ???Confirmed ???Type albuterol sulfate 90 mcg/actuation 2 puff inhalation Q4H PRN 11/21/24 Rx aerosol inhaler shortness of breath or wheezing #8.5 grams amlodipine 5 mg tablet 5 mg PO DAILY #90 tabs 10/04/24 Rx atorvastatin 20 mg tablet 20 mg PO DAILY CHOLESTEROL #90 tab s 10/04/24 11/21/24 Rx losartan 100 mg tablet 100 mg PO DAILY #90 tabs 10/04/24 11/21/24 Rx paroxetine HCl 40 mg tablet 40 mg PO DAILY DEPRESSION #90 tabs 10/04/24 11/21/24 Rx sildenafil 25 mg tablet (Viagra) 25 mg PO QDAY PRN sexual activity 11/21/24 11/21/24 Rx #30 tabs Nurse's Note: Pt has no concerns had no recent changes, and does not need refills. 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 1. Little interest or pleasure in doing things: not at all 2. Feeling down, depressed, or hopeless: not at all 3. Trouble falling or staying asleep, or sleeping too much: not at all 4. Feeling tired or having little energy: not at all 5. Poor appetite or overeating: not at all 6. Feeling bad about yourself - or that you are a failure or have let yourself and your family down: not at all 7. Trouble concentrating on things, such as reading the newspaper or watching television: not at all 8. Moving or speaking so slowly that other people could have noticed? - Or the opposite - being so fidgety or restless that you have been moving around a lot more than usual: not at all 9. Thoughts that you would be better off or of hurting yourself in some way: not at all Total score: 0 If you checked off any problems, how difficult have these problems made it for you to do your work, take care of things at home, or get along with other people?: not difficult at all Source: Developed by Drs. Ramesh Mcneil, Adriana Murry, Дмитрий Guthrie and colleagues, with an educational jennifer from [employer]. GRABIEL-7 BMS GRABIEL-7 Feeling nervous, anxious, or on edge: 0 = Not at all Not being able to stop or control worryin = Not at all Worrying too much about different things: 0 = Not at all Trouble relaxin = Not at all Being so restless that it is hard to sit still: 0 = Not at all Becoming easily annoyed or irritable: 0 = Not at all Feeling afraid as if something awful might happen: 0 = Not at all Total GRABIEL-7 score (0-4 normal; 5-9 mild; 10-14 moderate; 15-21 severe): 0 Source: Developed by Drs. Ramesh Mcneil, Дмитрий Hurt (more content not included)... Normal [facility] CNOVon 07-01-2024 CNOV Office Visit ([facility] ) SALEEM HOBBS ([id number]) 1965 M Date Time Provider Department 3/3/25 12:15 PM CHON PEOPLES [facility] During your visit today, we recorded the following information about you: Temperature Pulse Respiration Blood pressure 98.9 degrees 102/minute 16/minute 122/80 Weight 111 kg Chon Peoples PA 07/01/2024 11:45 AM Signed This note was created using [employer]. Subjective Saleem Hobbs is a 58 year [...] Diagnosis:Acute cough [R05.1] Order(s):XR CHEST 2V FRONTAL/LAT [8094799] Order #: [id number] FUTURE predniSONE (DELTASONE) 10 mg tabletTake 4 [...] hours as (more content not included)... Normal [facility] XR CHEST 2V FRONTAL/LATon XR CHEST 2V [...] tissues: Unremarkable. IMPRESSION: No acute radiographic abnormality. Pastry Artist: KIARRA Transcribe Date/Time: Jul 01 2024 11:36A Dictated by : JAZMYN ECKERT MD This examination was interpreted and the report reviewed and electronically signed by: JAZMYN ECKERT MD on Jul 01 2024 11:37AM EST [id number] Normal [facility] XR Chest PA and Lateralon IMPRESSION: No acute radiographic abnormality. Pastry Artist: KIARRA Transcribe Date/Time: Jul 01 2024 11:36A Dictated [...] soft tissues: Unremarkable. DIVISION OF RADIOLOGY Provider, Kirit hurley [place] - 07/01/2024 * * *Final Report* * [...] Unremarkable. IMPRESSION IMPRESSION: No acute radiographic abnormality. Pastry Artist: PSCB Transcribe Date/Time: Jul 01 2024 11:36A Dictated by : JAZMYN ECKERT MD This examination was interpreted and the report reviewed and electronically signed by: JAZMYN ECKERT MD on Jul 01 2024 11:37AM [facility] Radiology Study observation (narrative) [facility] XR Chest PA and LateralOrder ed By: Cc Provider on 07-01-2024 [facility] Internal Medicine Office Vis anabel 05-20-2024 Internal Medicine Office Visit [facility] [place] [address] [place] [address] OFFICE VISIT Date of Service: 05/21/24 MR#: [id number] Acct: [id number] Name: SALEEM HOBBS Rep #: [id number] : 1965 Provider: Dr. 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 Normal [facility] CNOVon 05-07-2024 CNOV Office Visit ([facility] ) SALEEM HOBBS ([id number]) 1965 M Date Time Provider Department 05/07/24 9:30 AM ENZO BOYCE [facility] During your visit today, we recorded the following information about you: Temperature Pulse Respiration Blood pressure 100.2 degrees 103/minute 16/minute 132/80 Weight 110.8 kg Enzo Boyce PA-C 05/07/2024 10:19 AM Signed This note was created using [employer]bers[employer]. Subjective Saleem Hobbs is a 58 year old male. Patient is a 58-year-old male complains of fever, chills, myalgia and cough that he has been experiencing for the past 5 days. Patient reports no congestion, sinus pressure or sore throat, although he does report ear pressure. Patient and his recently returned from [facility] via airline. Patient states that [...] AND RSV PCR, ROUTINE [SQCVFLRS] Order #: [id number]. #:[id number] XR CHEST 2V FRONTAL/LAT [[id number]] Order #: [id number]. #:[id number] predniSONE (DELTASONE) 20 mg tabletTake 1 tablet [...] 90 mcg/actuatio (more content not included)... Normal [facility] COVID AND INFLUENZA A/B AND RSV PCR, ROUTINEon 05-07-2024 SARS-CoV-2 (COVID-19) RNA JAMES+probe Ql (Unsp spec) SARS-COV-2 (AGENT OF COVID-19) RNA: Not detected INFLUENZA A RNA: Not detected INFLUENZA B RNA: Not detected RESPIRATORY SYNCYTIAL VIRUS (RSV) RNA: Not detected Normal [facility] Comment on above: Performed By: #### C VFLRS #### [facility] CLIA [id number] [address] [place], [place] [address] [address] [place] XR CHEST 2V [...] degenerative changes. IMPRESSION: No acute radiographic abnormality. Pastry Artist: [facility] Transcribe Date/Time: May 07 2024 10:05A Dictated by : ANA RIVERA MD This examination was interpreted and the report reviewed and electronically signed by: ANA RIVERA MD on May 07 2024 10:05AM EST [id number] Normal [facility] XR Chest PA and Lateralon IMPRESSION: No acute radiographic abnormality. Pastry Artist: [facility] Transcribe Date/Time: May 07 2024 10:05A Dictated [...] Mild degenerative changes. DIVISION OF RADIOLOGY Provider, Frances Leanna [place] - 05/07/2024 * * *Final Report* * [...] changes. IMPRESSION IMPRESSION: No acute radiographic abnormality. Pastry Artist: PSCB Transcribe Date/Time: May 07 2024 10:05A Dictated by : ANA RIVERA MD This examination was interpreted and the report reviewed and electronically signed by: ANA RIVERA MD on May 07 2024 10:05AM EST [facility] Radiology Study observation (narrative) [facility] XR Chest PA and LateralOrder ed By: Ccf Provider on 05-07-2024 [facility] Liveron 12-12-2023 [facility] [address] [place] [id number] Liver MR#: [id number] Acct: [id number] Name: SALEEM HOBBS Rep #: [id number] : 1965 M 58 From: Castillo george MD PCP: Dr. Washington Arzate MD Status: REG CLI Study: Liver Date of Exam: 12/12/23 Exam# [id number] Ordering Dr: Nanci Gipson SKIN GRADER-C [id number] STUDY: ABDOMINAL ULTRASOUND - RIGHT UPPER QUADRANT [...] CC: REBECCA Gipson; Dr. Washington Arzate MD Pastry Artist: Signed Normal [facility] CBC W/Diff, Automatedon 08-0 -2023 Absolute Lymph 0.91 X10 3/uL Normal 0.83-4.51 [facility] Comment on above: Performed By: #### L 501.9910, L500.4050, L500.4100, L100.0100 #### [facility] [address] [place], [address] Absolute Neut 2.6 X10 3/uL Normal 2.0-7.7 [facility] Comment on above: Performed By: #### L 501.9910, L500.4050, L500.4100, L100.0100 #### [facility] [address] [place], [address] Basophils/100 WBC (Bld) 1.6 % High 0-1 [facility] Comment on above: Performed By: #### L 501.9910, L500.4050, L500.4100, L100.0100 #### [facility] [address] [place], [address] Eosinophils/100 WBC (Bld) 3.0 % Normal 0-5 [facility] Comment on above: Performed By: #### L 501.9910, L500.4050, L500.4100, L100.0100 #### [facility] [address] [place], [address] Erythrocyte distribution width (RBC) [Ratio] 12.0 % Normal 11.6-14.6 [facility] Comment on above: Performed By: #### L 501.9910, L500.4050, L500.4100, L100.0100 #### [facility] [address] [place], [address] Hematocrit (Bld) [Volume fraction] 49.6 % Normal 40-54 [facility] Comment on above: Performed By: #### L 501.9910, L500.4050, L500.4100, L100.0100 #### [facility] [address] [place], [address] Hemoglobin (Bld) [Mass/Vol] 16.5 g/dL Normal 13.0-16.5 [facility] Comment on above: Performed By: #### L 501.9910, L500.4050, L500.4100, L100.0100 #### [facility] [address] [place], [address] IG% 0.200 Normal 0.0-0.9 [facility] Comment on above: Result Comment: IG% - Immature Granulocytes (promyelocytes, myelocytes and metamyelocytes) > 1% indicates that a LEFT SHIFT is Present. Performed By: #### L 501.9910, L500.4050, L500.4100, L100.0100 #### [facility] [address] [place], [address] Lymphocytes/100 WBC (Bld) 21.0 % Normal 19-41 [facility] Comment on above: Performed By: #### L 501.9910, L500.4050, L500.4100, L100.0100 #### [facility] [address] [place], [address] MCH (RBC) [Entitic mass] 29.9 pg Normal 27.0-32.0 [facility] Comment on above: Performed By: #### L 501.9910, L500.4050, L500.4100, L100.0100 #### [facility] [address] [place], [address] MCHC (RBC) [Mass/Vol] 33.3 g/dL Normal 32-36 [facility] Comment on above: Performed By: #### L 501.9910, L500.4050, L500.4100, L100.0100 #### [facility] [address] [place], [address] MCV (RBC) [Entitic vol] 90.0 fL Normal 80-94 [facility] Comment on above: Performed By: #### L 501.9910, L500.4050, L500.4100, L100.0100 #### [facility] [address] [place], [address] Monocytes/100 WBC (Bld) 13.2 % High 0-10 [facility] Comment on above: Performed By: #### L 501.9910, [id number], L500.4100, L100.0100 #### [facility] [address] [place], [address] Neutrophils/100 WBC (Bld) 61.0 % Normal 47-70 [facility] Comment on above: Performed By: #### L 501.9910, [id number], L500.4100, L100.0100 #### [facility] [address] [place], [address] Nucleated RBC (Bld) [#/Vol] 0 10*3/uL Normal 0-5 [facility] Comment on above: Performed By: #### L 501.9910, L500.4050, L500.4100, L100.0100 #### [facility] [address] [place], [address] Platelet mean volume (Bld) [Entitic vol] 10.0 fL Normal 6.2-12.0 [facility] Comment on above: Performed By: #### L 501.9910, L500.4050, L500.4100, L100.0100 #### [facility] [address] [place], [address] Platelets (Bld) [#/Vol] 288 10*3/uL Normal 150-450 [facility] Comment on above: Performed By: #### L 501.9910, L500.4050, L500.4100, L100.0100 #### [facility] [address] [place], [address] RBC (Bld) [#/Vol] 5.51 10*6/uL Normal 4.6-6.2 [facility] Comment on above: Performed By: #### L 501.9910, [id number], L500.4100, L100.0100 #### [facility] [address] [place], [address] RDW SD 39.9 fl Normal 35.1-43.9 [facility] Comment on above: Performed By: #### L 501.9910, [id number], L500.4100, L100.0100 #### [facility] [address] [place], [address] WBC (Bld) [#/Vol] 4.3 10*3/uL Low 4.4-11.0 [facility] Comment on above: Performed By: #### L 501.9910, [id number], L500.4100, L100.0100 #### [facility] [address] [place], [address] Comprehensive Metabolic Prof tnon 12-01-2023 Albumin [Mass/Vol] 3.9 g/dL Normal 3.2-5.0 [facility] Comment on above: Performed By: #### L 501.9910, L500.4050, L500.4100, L100.0100 #### [facility] [address] [place], [address] Albumin/Globulin [Mass ratio] 0.9 {ratio} Normal 0.9-2.4 [facility] Comment on above: Performed By: #### L 501.9910, L500.4050, L500.4100, L100.0100 #### [facility] [address] [place], [address] ALK P 202 U/L High 45-117 [facility] Comment on above: Performed By: #### L 501.9910, L500.4050, L500.4100, L100.0100 #### [facility] [address] [place], [address] ALT [Catalytic activity/Vol] 51 U/L Normal 16-61 [facility] Comment on above: Performed By: #### L 501.9910, L500.4050, L500.4100, L100.0100 #### [facility] [address] [place], [address] AST [Catalytic activity/Vol] 30 U/L Normal 15-37 [facility] Comment on above: Performed By: #### L 501.9910, L500.4050, L500.4100, L100.0100 #### [facility] [address] [place], [address] Bilirubin [Mass/Vol] 1.30 mg/dL High 0.20-1.00 [facility] Comment on above: Result Comment: For patients on eltrombopag therapy, use of Dimension Grady TBIL is not recommended. Performed By: #### L 501.9910, L500.4050, L500.4100, L100.0100 #### [facility] [address] [place], [address] BUN/CRE 12.8 RATIO Normal 10-20 [facility] Comment on above: Performed By: #### L 501.9910, L500.4050, L500.4100, L100.0100 #### [facility] [address] [place], [address] CA,Total 8.7 mg/dL Normal 8.5-10.1 [facility] Comment on above: Performed By: #### L 501.9910, L500.4050, L500.4100, L100.0100 #### [facility] [address] [place], [address] Chloride [Moles/Vol] 105 mmol/L Normal 98-107 [facility] Comment on above: Performed By: #### L 501.9910, L500.4050, L500.4100, L100.0100 #### [facility] [address] [place], [address] CO2 [Moles/Vol] 28.0 mmol/L Normal 21.0-32.0 [facility] Comment on above: Performed By: #### L 501.9910, L500.4050, L500.4100, L100.0100 #### [facility] [address] [place], [address] Creatinine [Mass/Vol] 0.94 mg/dL Normal 0.70-1.30 [facility] Comment on above: Result Comment: The validity of the calculated GFR GFRAA in patients over 70 years has not been determined. Clinical correlation is essential. Performed By: #### L 501.9910, L500.4050, L500.4100, L100.0100 #### [facility] [address] [place], [address] EST GFR - AA 106 mL/min Normal >60 [facility] Comment on above: Result Comment: Afri can Mal[place]ian GFR Calc Performed By: #### L 501.9910, L500.4050, L500.4100, L100.0100 #### [facility] [address] [place], [address] GAP 5 Normal 5-15 [facility] Comment on above: Performed By: #### L 501.9910, L500.4050, L500.4100, L100.0100 #### [facility] [address] [place], [address] GFR/1.73 sq M.predicted among non-blacks MDRD (S/P/Bld) [Vol rate/Area] 88 mL/min/{1.73_m2} Normal >60 [facility] Comment on above: Result Comment: Non- GFR Calc Performed By: #### L 501.9910, L500.4050, L500.4100, L100.0100 #### [facility] [address] [place], [address] Globulin (S) [Mass/Vol] 4.5 g/dL High 2.2-4.2 [facility] Comment on above: Performed By: #### L 501.9910, L500.4050, L500.4100, L100.0100 #### [facility] [address] [place], [address] Glucose [Mass/Vol] 97 mg/dL Normal 74-106 [facility] Comment on above: Performed By: #### L 501.9910, L500.4050, L500.4100, L100.0100 #### [facility] [address] [place], [address] Potassium [Moles/Vol] 4.0 mmol/L Normal 3.5-5.1 [facility] Comment on above: Performed By: #### L 501.9910, L500.4050, L500.4100, L100.0100 #### [facility] [address] [place], [address] Sodium [Moles/Vol] 138 mmol/L Normal 136-145 [facility] Comment on above: Performed By: #### L 501.9910, L500.4050, L500.4100, L100.0100 #### [facility] [address] [place], [address] T PROT 8.4 g/dL High 6.4-8.2 [facility] Comment on above: Performed By: #### L 501.9910, L500.4050, L500.4100, L100.0100 #### [facility] [address] [place], [address] Urea nitrogen [Mass/Vol] 12 mg/dL Normal 7-18 [facility] Comment on above: Performed By: #### L 501.9910, L500.4050, L500.4100, L100.0100 #### [facility] [address] [place], [address] Lipid Profileon 12-01-2023 Cholesterol [Mass/Vol] 110 mg/dL Normal 200 [facility] Comment on above: Result Comment: <200 mg/dL Desirable 200-240 mg/dL Borderline >240 mg/dL High Risk Performed By: #### L 501.9910, L500.4050, L500.4100, L100.0100 #### [facility] [address] [place], [address] Cholesterol in HDL [Mass/Vol] 28 mg/dL Low [facility] Comment on above: Result Comment: The drugs N-Acetylcysteine and Metamizole may falsely depress this assay. Reference Range HDL <40 mg/dL Low HDL Cholesterol HDL >or= 60 mg/dL High HDL Cholesterol Performed By: #### L 501.9910, L500.4050, L500.4100, L100.0100 #### [facility] [address] [place], [address] Cholesterol in LDL [Mass/Vol] 65 mg/dL Normal 0-130 [facility] Comment on above: Performed By: #### L 501.9910, L500.4050, L500.4100, L100.0100 #### [facility] [address] [place], [address] Cholesterol in VLDL [Mass/Vol] 17 mg/dL Normal 5-40 [facility] Comment on above: Performed By: #### L 501.9910, L500.4050, L500.4100, L100.0100 #### [facility] [address] [place], [address] Triglyceride [Mass/Vol] 84 mg/dL Normal [facility] Comment on above: Result Comment: The drugs N-Acetylcysteine and Metamizole may falsely depress this assay. Serum Triglycerides Reference Interval Normal <150 mg/dL Borderline high 150 - 199 mg/dL High 200 - 499 mg/dL Very High > or = 500 mg/dL Performed By: #### L 501.9910, L500.4050, L500.4100, L100.0100 #### [facility] [address] [place], [address] PSA,Total - Annual Screenon 12-01-2023 PSA,TOT SCREEN 0.55 ng/mL Normal 0.00-4.00 [facility] Comment on above: Result Comment: This test was performed using the TPSA assay method for the [employer] chemistry system. Values obtained with different assay methods cannot be used interchangably. When changing PSA assays in the course of monitoring a patient, additional sequential testing should be carried out to confirm baseline values. Performed By: #### L 501.9910, L500.4050, L500.4100, L100.0100 #### [facility] [address] [place], [address] Absolute lymphocyte countOrd ered By: Dr. Arzate on 10-19-2022 Lymphocytes Auto (Unsp spec) [#/Vol] 0.93 10*3/uL 0.83-4.51 [facility] Basophil percentageOrdered B y: Dr. Arzate on 10-19-2022 Basophils/100 WBC (Bld) 1.1 % 0-1 [facility] Bilirubin [Mass/Vol] 1.00 mg/dL 0.20-1.00 [facility] Comment on above: For patients on eltr ombopag therapy, use of Dimension Grady TBIL is not recommended. Chloride [Moles/Vol] 107 mmol/L 98-107 [facility] Cholesterol [Mass/Vol] 115 mg/dL <200 [facility] Comment on above: <200 mg/dL Desirable 200-240 mg/dL Borderline >240 mg/dL High Risk Eosinophils/100 WBC (Bld) 2.8 % 0-5 [facility] Glucose [Mass/Vol] 91 mg/dL 74-106 [facility] Neutrophils (Bld) [#/Vol] 2.6 10*3/uL 2.0-7.7 [facility] Neutrophils/100 WBC (Bld) 60.4 % 47-70 [facility] Potassium [Moles/Vol] 3.9 mmol/L 3.5-5.1 [facility] Protein [Mass/Vol] 8.0 g/dL 6.4-8.2 [facility] Sodium [Moles/Vol] 140 mmol/L 136-145 [facility] Triglyceride [Mass/Vol] 105 mg/dL <199 [facility] Comment on above: The drugs N-Acetylcy steine and Metamizole may falsely depress this assay.Serum Triglycerides Reference Interval Normal <150 mg/dL Borderline high 150 - 199 mg/dL High 200 - 499 mg/dL Very High > or = 500 mg/dL WBC (Bld) [#/Vol] 4.4 10*3/uL 4.4-11.0 [facility] Blood erythrocytes count (nu mber/volume)Ordered By: Dr. Arzate on 10-19-2022 RBC (Bld) [#/Vol] 5.14 10*6/uL 4.6-6.2 [facility] Blood hemoglobin measurement (mass/volume)Ordered By: Dr. Arzate on 10-19-2022 Hemoglobin (Bld) [Mass/Vol] 15.8 g/dL 13.0-16.5 [facility] Blood lymphocytes/100 leukoc ytesOrdered By: Dr. Arzate on 10-19-2022 Lymphocytes/100 WBC (Bld) 21.3 % 19-41 [facility] Blood monocytes/100 leukocyt esOrdered By: Dr. Arzate on 10-19-2022 Monocytes/100 WBC (Bld) 14.2 % 0-10 [facility] Blood platelet mean volumeOr dered By: Dr. Arzate on 10-19-2022 Platelet mean volume (Bld) [Entitic vol] 10.2 fL 6.2-12.0 [facility] Determination of erythrocyte mean corpuscular volume (MCV)Ordered By: Dr. Arzate on 06-21-2023 MCV (RBC) [Entitic vol] 90.5 fL 80-94 [facility] Hematocrit Auto (Bld) [Volum e fraction]Ordered By: Dr. Arzate on 10-19-2022 Hematocrit (Bld) [Volume fraction] 46.5 % 40-54 [facility] - Chemistry and C hemistry - challengeOrdered By: Dr. Arzate on 10-19-2022 ALP [Catalytic activity/Vol] 190 U/L 45-117 [facility] ALT [Catalytic activity/Vol] 58 U/L 16-61 [facility] CO2 [Moles/Vol] 29.0 mmol/L 21.0-32.0 [facility] Globulin (S) [Mass/Vol] 4.2 g/dL 2.2-4.2 [facility] Urea nitrogen/Creatinine [Mass ratio] 13.8 mg/mg 10-20 [facility] - Hematology and Cell countsOrdered By: Dr. Arzate on 10-19-2022 Erythrocyte distribution width (RBC) [Entitic vol] 41.7 fL 35.1-43.9 [facility] Erythrocyte distribution width (RBC) [Ratio] 12.7 % 11.6-14.6 [facility] Immature granulocytes/100 WBC (Bld) 0.200 % 0.0-0.9 [facility] Comment on above: IG% - Immature Granu locytes (promyelocytes, myelocytes and metamyelocytes) > 1% indicates that a LEFT SHIFT is Present. MCH (RBC) [Entitic mass] 30.7 pg 27.0-32.0 [facility] Nucleated RBC/100 WBC (Bld) [Ratio] 0 % 0-5 [facility] MCHC Auto (RBC) [Mass/Vol]Or dered By: Dr. Arzate on 10-19-2022 MCHC (RBC) [Mass/Vol] 34.0 g/dL 32-36 [facility] No Panel InformationOrdered By: Dr. Arzate on 10-19-2022 Estimated GFR (MDRD) Amer 107 mL/min >60 [facility] Estimated GFR (MDRD) Non-Af Amer 88 mL/min >60 [facility] Platelets bldOrdered By: Dr. Arzate on 10-19-2022 Platelets (Bld) [#/Vol] 278 10*3/uL 150-450 [facility] Serum or plasma albumin cem urement (mass/volume)Ordered By: Dr. Arzate on 10-19-2022 Albumin [Mass/Vol] 3.8 g/dL 3.2-5.0 [facility] Serum or plasma albumin/glob ulin mass ratioOrdered By: Dr. Arzate on 10-19-2022 Albumin/Globulin [Mass ratio] 0.9 {ratio} 0.9-2.4 [facility] Serum or plasma calcium cem urement (mass/volume)Ordered By: Dr. Arzate on 10-19-2022 Calcium [Mass/Vol] 8.8 mg/dL 8.5-10.1 [facility] Serum or plasma cholesterol in HDL measurement (mass/volume)Ordered By: Dr. Arzate on 10-19-2022 Cholesterol in HDL [Mass/Vol] 27 mg/dL >40 [facility] Comment on above: The drugs N-Acetylcy steine and Metamizole may falsely depress this assay. Reference Range HDL <40 mg/dL Low HDL Cholesterol HDL >or= 60 mg/dL High HDL Cholesterol Serum or plasma cholesterol in VLDL measurement (mass/volume)Ordered By: Dr. Arzate on 10-19-2022 Cholesterol in VLDL [Mass/Vol] 21 mg/dL 5-40 [facility] Serum or plasma creatinine m easurement (mass/volume)Ordered By: Dr. Arzate on 10-19-2022 Creatinine [Mass/Vol] 0.94 mg/dL 0.70-1.30 [facility] Comment on above: The validity of the calculated GFR & GFRAA in patients over 70 years has not been determined. Clinical correlation is essential. Serum or plasma low density lipoprotein (LDL) cholesterol measurement (mass/volume)Ordered By: Dr. Arzate on 10-19-2022 Cholesterol in LDL [Mass/Vol] 67 mg/dL 0-130 [facility] Serum or plasma urea nitroge n measurement (mass/volume)Ordered By: Dr. Arzate on 10-19-2022 Urea nitrogen [Mass/Vol] 13 mg/dL 7-18 [facility] Thin prep Papanicolaou smear with manual screeningOrdered By: Dr. Arzate on 10-19-2022 Thin prep Papanicolaou smear with manual screening 33 U/L 15-37 [facility] Thin prep Papanicolaou smear with manual screening 4 5-15 [facility] Basophil percentageOrdered B y: Dr. Olivo on 05-17-2022 Creatinine [Mass/Vol] 1.2 mg/dL 0.70-1.30 [facility] No Panel InformationOrdered By: Dr. Olivo on 05-17-2022 Bedside Estimated GFR (eGFR) > 60.0000 mL/min >60 [facility] Absolute lymphocyte counton 06-13-2021 Lymphocytes Auto (Unsp spec) [#/Vol] 0.74 10*3/uL 0.83-4.51 [facility] Work Phone: Basophil percentageon 2021 Basophils/100 WBC (Bld) 0.5 % 0-1 [facility] Work Phone: Bilirubin [Mass/Vol] 1.50 mg/dL 0.20-1.00 [facility] Work Phone: Comment on above: For patients on eltr ombopag therapy, use of Dimension Grady TBIL is not recommended. Chloride [Moles/Vol] 105 mmol/L 98-107 [facility] Work Phone: Eosinophils/100 WBC (Bld) 2.9 % 0-5 [facility] Work Phone: Glucose [Mass/Vol] 89 mg/dL 74-106 [facility] Work Phone: Neutrophils (Bld) [#/Vol] 4.0 10*3/uL 2.0-7.7 [facility] Work Phone: Neutrophils/100 WBC (Bld) 72.4 % 47-70 [facility] Work Phone: Potassium [Moles/Vol] 3.5 mmol/L 3.5-5.1 [facility] Work Phone: Protein [Mass/Vol] 8.2 g/dL 6.4-8.2 [facility] Work Phone: Sodium [Moles/Vol] 139 mmol/L 136-145 [facility] Work Phone: WBC (Bld) [#/Vol] 5.5 10*3/uL 4.4-11.0 [facility] Work Phone: Blood erythrocytes count (nu mber/volume)on 06-13-2021 RBC (Bld) [#/Vol] 4.88 10*6/uL 4.6-6.2 [facility] Work Phone: Blood hemoglobin measurement (mass/volume)on 06-13-2021 Hemoglobin (Bld) [Mass/Vol] 15.1 g/dL 13.0-16.5 [facility] Work Phone: Blood lymphocytes/100 leukoc yteson 06-13-2021 Lymphocytes/100 WBC (Bld) 13.4 % 19-41 [facility] Work Phone: Blood monocytes/100 leukocyt eson 06-13-2021 Monocytes/100 WBC (Bld) 10.6 % 0-10 [facility] Work Phone: Blood platelet mean volumeon 06-13-2021 Platelet mean volume (Bld) [Entitic vol] 9.6 fL 6.2-12.0 [facility] Work Phone: Determination of erythrocyte mean corpuscular volume (MCV)on 06-13-2021 MCV (RBC) [Entitic vol] 90.6 fL 80-94 [facility] Work Phone: Direct bilirubinon Bilirubin.direct [Mass/Vol] 0.34 mg/dL 0.00-0.30 [facility] Work Phone: Hematocrit Auto (Bld) [Volum e fraction]on 06-13-2021 Hematocrit (Bld) [Volume fraction] 44.2 % 40-54 [facility] Work Phone: Laboratory - Chemistry and C hemistry - challengeon 02-13-2022 ALP [Catalytic activity/Vol] 204 U/L 45-117 [facility] Work Phone: [phone] ALT [Catalytic activity/Vol] 36 U/L 16-61 [facility] Work Phone: [phone] CO2 [Moles/Vol] 27.0 mmol/L 21.0-32.0 [facility] Work Phone: [phone] Globulin (S) [Mass/Vol] 4.6 g/dL 2.2-4.2 [facility] Work Phone: [phone] Lipase [Catalytic activity/Vol] 104 U/L 73-393 [facility] Work Phone: [phone] Urea nitrogen/Creatinine [Mass ratio] 16.9 mg/mg 10-20 [facility] Work Phone: [phone] Laboratory - Hematology and Cell countson 06-13-2021 Erythrocyte distribution width (RBC) [Entitic vol] 42.5 fL 35.1-43.9 [facility] Work Phone: [phone] Erythrocyte distribution width (RBC) [Ratio] 12.8 % 11.6-14.6 [facility] Work Phone: [phone] Immature granulocytes/100 WBC (Bld) 0.200 % 0.0-0.9 [facility] Work Phone: [phone] Comment on above: IG% - Immature Granu locytes (promyelocytes, myelocytes and metamyelocytes) > 1% indicates that a LEFT SHIFT is Present. MCH (RBC) [Entitic mass] 30.9 pg 27.0-32.0 [facility] Work Phone: [phone] Nucleated RBC/100 WBC (Bld) [Ratio] 0 % 0-5 [facility] Work Phone: [phone] MCHC Auto (RBC) [Mass/Vol]on 06-13-2021 MCHC (RBC) [Mass/Vol] 34.2 g/dL 32-36 [facility] Work Phone: [phone] No Panel Informationon 06-13 Estimated Creatinine Clearance Calc 110.27 ml/min [facility] Work Phone: Estimated GFR (MDRD) Amer 115 mL/min >60 [facility] Work Phone: [phone] Comment on above: GFR Calc Estimated GFR (MDRD) Non-Af Amer 95 mL/min >60 [facility] Work Phone: Comment on above: Non- GFR Calc Platelets bldon 06-13-2021 Platelets (Bld) [#/Vol] 248 10*3/uL 150-450 [facility] Work Phone: [phone] Serum or plasma albumin cem urement (mass/volume)on 06-13-2021 Albumin [Mass/Vol] 3.6 g/dL 3.2-5.0 [facility] Work Phone: [phone] Serum or plasma calcium cem urement (mass/volume)on 06-13-2021 Calcium [Mass/Vol] 8.8 mg/dL 8.5-10.1 [facility] Work Phone: [phone] Serum or plasma creatinine m easurement (mass/volume)on 06-13-2021 Creatinine [Mass/Vol] 0.88 mg/dL 0.70-1.30 [facility] Work Phone: Comment on above: The validity of the calculated GFR & GFRAA in patients over 70 years has not been determined. Clinical correlation is essential. Serum or plasma urea nitroge n measurement (mass/volume)on 06-13-2021 Urea nitrogen [Mass/Vol] 15 mg/dL 7-18 [facility] Work Phone: [phone] Thin prep Papanicolaou smear with manual screeningon 06-13-2021 Thin prep Papanicolaou smear with manual screening 17 U/L 15-37 [facility] Work Phone: [phone] Thin prep Papanicolaou smear with manual screening 7 5-15 [facility] Work Phone: [phone] Absolute lymphocyte counton 05-08-2021 Lymphocytes Auto (Unsp spec) [#/Vol] 0.95 10*3/uL 0.83-4.51 [facility] Work Phone: [phone] Basophil percentageon 2021 Basophils/100 WBC (Bld) 0.4 % 0-1 [facility] Work Phone: Chloride [Moles/Vol] 106 mmol/L 98-107 [facility] Work Phone: Eosinophils/100 WBC (Bld) 0.8 % 0-5 [facility] Work Phone: Glucose [Mass/Vol] 94 mg/dL 74-106 [facility] Work Phone: Comment on above: Please note revised GLUCOSE reference range effective 2017. Neutrophils (Bld) [#/Vol] 3.5 10*3/uL 2.0-7.7 [facility] Work Phone: Neutrophils/100 WBC (Bld) 68.3 % 47-70 [facility] Work Phone: Potassium [Moles/Vol] 3.9 mmol/L 3.5-5.1 [facility] Work Phone: Sodium [Moles/Vol] 139 mmol/L 136-145 [facility] Work Phone: WBC (Bld) [#/Vol] 5.1 10*3/uL 4.4-11.0 [facility] Work Phone: [phone] Blood erythrocytes count (nu mber/volume)on 05-08-2021 RBC (Bld) [#/Vol] 4.35 10*6/uL 4.6-6.2 [facility] Work Phone: Blood hemoglobin measurement (mass/volume)on 05-08-2021 Hemoglobin (Bld) [Mass/Vol] 13.1 g/dL 13.0-16.5 [facility] Work Phone: Blood lymphocytes/100 leukoc yteson 05-08-2021 Lymphocytes/100 WBC (Bld) 18.6 % 19-41 [facility] Work Phone: Blood monocytes/100 leukocyt eson 05-08-2021 Monocytes/100 WBC (Bld) 11.7 % 0-10 [facility] Work Phone: [phone] Blood platelet mean volumeon 05-08-2021 Platelet mean volume (Bld) [Entitic vol] 9.7 fL 6.2-12.0 [facility] Work Phone: [phone] Determination of erythrocyte mean corpuscular volume (MCV)on 05-08-2021 MCV (RBC) [Entitic vol] 89.4 fL 80-94 [facility] Work Phone: [phone] Hematocrit Auto (Bld) [Volum e fraction]on 05-08-2021 Hematocrit (Bld) [Volume fraction] 38.9 % 40-54 [facility] Work Phone: [phone] Laboratory - Chemistry and C hemistry - challengeon 05-08-2021 CO2 [Moles/Vol] 28.0 mmol/L 21.0-32.0 [facility] Work Phone: [phone] Urea nitrogen/Creatinine [Mass ratio] 16.1 mg/mg 10-20 [facility] Work Phone: [phone] Laboratory - Hematology and Cell countson 05-08-2021 Erythrocyte distribution width (RBC) [Entitic vol] 40.4 fL 35.1-43.9 [facility] Work Phone: [phone] Erythrocyte distribution width (RBC) [Ratio] 12.3 % 11.6-14.6 [facility] Work Phone: [phone] Immature granulocytes/100 WBC (Bld) 0.200 % 0.0-0.9 [facility] Work Phone: [phone] Comment on above: IG% - Immature Granu locytes (promyelocytes, myelocytes and metamyelocytes) > 1% indicates that a LEFT SHIFT is Present. MCH (RBC) [Entitic mass] 30.1 pg 27.0-32.0 [facility] Work Phone: [phone] Nucleated RBC/100 WBC (Bld) [Ratio] 0 % 0-5 [facility] Work Phone: [phone] MCHC Auto (RBC) [Mass/Vol]on 05-08-2021 MCHC (RBC) [Mass/Vol] 33.7 g/dL 32-36 [facility] Work Phone: No Panel Informationon 05-08 Estimated Creatinine Clearance Calc 111.54 ml/min [facility] Work Phone: Estimated GFR (MDRD) Amer 117 mL/min >60 [facility] Work Phone: Comment on above: GFR Calc Estimated GFR (MDRD) Non-Af Amer 97 mL/min >60 [facility] Work Phone: Comment on above: Non- GFR Calc Platelets bldon 05-08-2021 Platelets (Bld) [#/Vol] 227 10*3/uL 150-450 [facility] Work Phone: Serum or plasma calcium cem urement (mass/volume)on 05-08-2021 Calcium [Mass/Vol] 8.5 mg/dL 8.5-10.1 [facility] Work Phone: [phone] Serum or plasma creatinine m easurement (mass/volume)on 05-08-2021 Creatinine [Mass/Vol] 0.87 mg/dL 0.70-1.30 [facility] Work Phone: [phone] Comment on above: The validity of the calculated GFR & GFRAA in patients over 70 years has not been determined. Clinical correlation is essential. Serum or plasma urea nitroge n measurement (mass/volume)on 05-08-2021 Urea nitrogen [Mass/Vol] 14 mg/dL 7-18 [facility] Work Phone: Thin prep Papanicolaou smear with manual screeningon 05-08-2021 Thin prep Papanicolaou smear with manual screening 5 5-15 [facility] Work Phone: [phone] Laboratory - Chemistry and C hemistry - challengeon 05-07-2021 Magnesium [Mass/Vol] 2.4 mg/dL 1.6-2.6 [facility] Work Phone: No Panel Informationon 05-07 Thyroid Stimulating Hormone (TSH) 1.49 uIU/mL 0.358-3.74 [facility] Work Phone: Laboratory - Microbiology an d Antimicrobial susceptibilityon 05-06-2021 Bacteria identified Cx Nom (Bld) No growth in 5 days. [facility] Work Phone: No Panel Informationon 05-06 D-Dimer Quantitative (PE/DVT) 0.81 FEU/ug/m 0.27-0.49 [facility] Work Phone: Comment on above: CRITICAL VALUE VERIF IED. CALLED TO FABIANA ROSENTHAL05/06/21 1306 Minnie Miranda.RESULTS READ BACK BY SAME . D-Dimer ELEVATED (>0.49): Additional studies and clinicalassessments are indicated to conclude diagnosis of:Deep Vein Thrombosis (DVT) or Pulmonary Embolism (PE) Troponin I High Sensitivity 6 pg/mL 3.0-78.0 [facility] Work Phone: Comment on above: Please Note: New Kinsey t Units and Gender Specific Reference Ranges. For more information see Policy Stat Procedure Grady High Sensitivity Troponin (TNIH) and attachments. Vital Signs Date Time Vital Sign Value Performing Clinician Facility 11-21-2024 11:06-0400 Body height 187.[address] Washington Arzate MD Work Phone: [facility] 11-21-2024 11:06-0400 Body mass index (BMI) [Ratio] 32.1 kg/m2 Dr. Washington Arzate MD Work Phone: [facility] 11-21-2024 11:06-0400 Body temperature 97.6 [degF] Dr. Washington Arzate MD Work Phone: [facility] 11-21-2024 11:06-0400 Body weight 113.[address] Washington Arzate MD Work Phone: [facility] 11-21-2024 11:06-0400 Diastolic blood pressure 90 mm[Hg] Dr. Washington Arzate MD Work Phone: [facility] 11-21-2024 11:06-0400 Heart rate 82 /min Dr. Washington Arzate MD Work Phone: [facility] 11-21-2024 11:06-0400 Respiratory rate 16 /min Dr. Washington Arzate MD Work Phone: [facility] 11-21-2024 11:06-0400 SaO2% (BldA) [Mass fraction] 97 % Dr. Washington Arzate MD Work Phone: [facility] 11-21-2024 11:06-0400 Systolic blood pressure 142 mm[Hg] Dr. Washington Arzate MD Work Phone: [facility] 07-01-2024 11:13-0500 Body temperature 98.91 [degF] Krislyn Aberegg PA Work Phone: [facility] 07-01-2024 11:13-0500 Body weight 111 kg Krislyn Aberegg PA Work Phone: [facility] 07-01-2024 11:13-0500 Diastolic blood pressure 80 mm[Hg] Krislyn Aberegg PA Work Phone: [facility] 07-01-2024 11:13-0500 Heart rate 102 /min Krislyn Aberegg PA Work Phone: [facility] 07-01-2024 11:13-0500 Respiratory rate 16 /min Krislyn Aberegg PA Work Phone: [facility] 07-01-2024 11:13-0500 SaO2% (BldA) [Mass fraction] 97 % Krislyn Aberegg PA Work Phone: [facility] 07-01-2024 11:13-0500 Systolic blood pressure 122 mm[Hg] Krislyn Aberegg PA Work Phone: [facility] 05-07-2024 09:27-0500 Body temperature 100.2 [degF] Enzo Clutter PA-C Work Phone: [facility] 05-07-2024 09:27-0500 Body weight 110.8 kg Enzo Clutter PA-C Work Phone: [facility] 05-07-2024 09:27-0500 Diastolic blood pressure 80 mm[Hg] Enzo Clutter PA-C Work Phone: [facility] 05-07-2024 09:27-0500 Heart rate 103 /min Enzo Clutter PA-C Work Phone: [facility] 05-07-2024 09:27-0500 Respiratory rate 16 /min Enzo Clutter PA-C Work Phone: [facility] 05-07-2024 09:27-0500 SaO2% (BldA) [Mass fraction] 97 % Enzo Clutter PA-C Work Phone: [facility] 05-07-2024 09:27-0500 Systolic blood pressure 132 mm[Hg] Enzo Clutter PA-C Work Phone: [facility] 09-27-2022 13:33-0400 Body height 187.[address] Darin Sharma Work Phone: [facility] 09-27-2022 13:33-0400 Body mass index (BMI) [Ratio] 31.6 kg/m2 Dr. Darin Sharma Work Phone: [facility] 09-27-2022 13:33-0400 Body temperature 98.5 [degF] Dr. Darin Sharma Work Phone: [facility] 09-27-2022 13:33-0400 Body weight 111.[address] Darin Sharma Work Phone: [facility] 09-27-2022 13:33-0400 Diastolic blood pressure 82 mm[Hg] Dr. Darin Sharma Work Phone: [facility] 09-27-2022 13:33-0400 Heart rate 89 /min Dr. Darin Sharma Work Phone: [facility] 09-27-2022 13:33-0400 Respiratory rate 14 /min Dr. Darin Sharma Work Phone: [facility] 09-27-2022 13:33-0400 SaO2% (BldA) [Mass fraction] 97 % Dr. Darin Sharma Work Phone: [facility] 09-27-2022 13:33-0400 Systolic blood pressure 124 mm[Hg] Dr. Darin Sharma Work Phone: [facility] 06-28-2022 06:25-0500 Body height 187.[address] Darin Sharma Work Phone: [facility] 06-28-2022 06:25-0500 Body mass index (BMI) [Ratio] 32.1 kg/m2 Dr. Darin Sharma Work Phone: [facility] 06-28-2022 06:25-0500 Body temperature 97.6 [degF] Dr. Darin Sharma Work Phone: [facility] 06-28-2022 06:25-0500 Body weight 113.[address] Darin Sharma Work Phone: [facility] 06-28-2022 06:25-0500 Diastolic blood pressure 89 mm[Hg] Dr. Darin Sharma Work Phone: [facility] 06-28-2022 06:25-0500 Heart rate 87 /min Dr. Darin Sharma Work Phone: [facility] 06-28-2022 06:25-0500 Respiratory rate 18 /min Dr. Darin Sharma Work Phone: [facility] 06-28-2022 06:25-0500 SaO2% (BldA) [Mass fraction] 99 % Dr. Darin Sharma Work Phone: [facility] 06-28-2022 06:25-0500 Systolic blood pressure 142 mm[Hg] Dr. Darin Sharma Work Phone: [facility] 05-24-2022 11:04-0500 Body mass index (BMI) [Ratio] 31.4 kg/m2 Dr. Darin Sharma Work Phone: [facility] 05-24-2022 11:04-0500 Body temperature 96.5 [degF] Dr. Darin Sharma Work Phone: [facility] 05-24-2022 11:04-0500 Body weight 111.[address] Darin Sharma Work Phone: [facility] 05-24-2022 11:04-0500 Diastolic blood pressure 94 mm[Hg] Dr. Darin Sharma Work Phone: [facility] 05-24-2022 11:04-0500 Heart rate 79 /min Dr. Darin Sharma Work Phone: [facility] 05-24-2022 11:04-0500 Respiratory rate 18 /min Dr. Darin Sharma Work Phone: [facility] 05-24-2022 11:04-0500 SaO2% (BldA) [Mass fraction] 95 % Dr. Darin Sharma Work Phone: [facility] 05-24-2022 11:04-0500 Systolic blood pressure 154 mm[Hg] Dr. Darin Sharma Work Phone: [facility] 06-13-2021 14:40-0500 Diastolic blood pressure 74 mm[Hg] Dr. Darin Sharma Work Phone: [facility] Work Phone: 06-13-2021 14:40-0500 Heart rate 86 /min Dr. Darin Sharma Work Phone: [facility] Work Phone: 06-13-2021 14:40-0500 Respiratory rate 15 /min Dr. Darin Sharma Work Phone: [facility] Work Phone: 06-13-2021 14:40-0500 SaO2% (BldA) [Mass fraction] 98 % Dr. Darin Sharma Work Phone: [facility] Work Phone: 06-13-2021 14:40-0500 Systolic blood pressure 136 mm[Hg] Dr. Darin Sharma Work Phone: [facility] Work Phone: 06-13-2021 10:02-0500 Body height 187.[address] Darin Sharma Work Phone: [facility] Work Phone: 06-13-2021 10:02-0500 Body mass index (BMI) [Ratio] 29.5 kg/m2 Dr. Darin Sharma Work Phone: [facility] Work Phone: 06-13-2021 10:02-0500 Body temperature 95.6 [degF] Dr. Darin Sharma Work Phone: [facility] Work Phone: 06-13-2021 10:02-0500 Body weight 104.[address] Darin Sharma Work Phone: [facility] Work Phone: 05-10-2021 15:48-0500 Body temperature 98.6 [degF] Dr. Darin Sharma Work Phone: [facility] Work Phone: 05-10-2021 15:48-0500 Diastolic blood pressure 89 mm[Hg] Dr. Darin Sharma Work Phone: [facility] Work Phone: 05-10-2021 15:48-0500 Heart rate 65 /min Dr. Darin Sharma Work Phone: [facility] Work Phone: 05-10-2021 15:48-0500 Respiratory rate 16 /min Dr. Darin Sharma Work Phone: [facility] Work Phone: 05-10-2021 15:48-0500 SaO2% (BldA) [Mass fraction] 100 % Dr. Darin Sharma Work Phone: [facility] Work Phone: 05-10-2021 15:48-0500 Systolic blood pressure 128 mm[Hg] Dr. Darin Sharma Work Phone: [facility] Work Phone: 05-10-2021 14:25-0500 Body mass index (BMI) [Ratio] 28.2 kg/m2 Dr. Darin Sharma Work Phone: [facility] Work Phone: 05-10-2021 14:25-0500 Body weight 99.[address] Darin Sharma Work Phone: [facility] Work Phone: 05-08-2021 14:00-0500 Heart rate 69 /min Dr. Darin Sharma Work Phone: [facility] Work Phone: 05-08-2021 11:14-0500 Body temperature 97.7 [degF] Dr. Darin Sharma Work Phone: [facility] Work Phone: 05-08-2021 11:14-0500 Diastolic blood pressure 78 mm[Hg] Dr. Darin Sharma Work Phone: [facility] Work Phone: 05-08-2021 11:14-0500 Respiratory rate 18 /min Dr. Darin Sharma Work Phone: [facility] Work Phone: 05-08-2021 11:14-0500 SaO2% (BldA) [Mass fraction] 94 % Dr. Darin Sharma Work Phone: [facility] Work Phone: 05-08-2021 11:14-0500 Systolic blood pressure 144 mm[Hg] Dr. Darin Sharma Work Phone: [facility] Work Phone: 05-07-2021 09:09-0500 Body weight 96.[address] Darin Sharma Work Phone: [facility] Work Phone: 05-06-2021 16:47-0500 Body mass index (BMI) [Ratio] 27.3 kg/m2 Dr. Darin Sharma Work Phone: [facility] Work Phone: Encounters Encounter Date Encounter Type Care Provider Facility Start: 11-21-2024 End: 11-21-[address] Washington Arzate MD -[facility] Work Phone: Start: 11-21-2024 End: 11-22-[address] Washington Arzate MD Work Phone: -[facility] Start: 07-01-2024 End: 07-01-2024 Patient encounter procedure Chon PONCE Work Phone: [facility] Comment on above: Acute cough (Primary Dx) Start: 07-01-2024 End: 07-01-2024 ambulatory WASHINGTON G HUEY Facility:[facility] Start: 07-01-2024 End: 07-01-2024 Subsequent hospital visit by physician Xr [facility] Work Phone: Radiology Comment on above: Acute cough [R05.1] Start: 05-21-2024 End: 05-21-2024 ambulatory Washington Huey Facility:[facility] Start: 05-07-2024 End: 05-07-2024 Subsequent hospital visit by physician Xr [facility] Work Phone: Radiology Comment on above: Viral illness [B34.9 ] Start: 05-07-2024 End: 05-07-2024 ambulatory WASHINGTON G HUEY Facility:[facility] Start: 05-07-2024 End: 05-07-2024 Office outpatient new 30 minutes Enzo Boyce PA-C Work Phone: [facility] Comment on above: Viral illness (Prima ry Dx); Recent foreign travel Start: 01-08-2024 Encounter for genera l adult medical examination without abnormal findings Nanic Gipson [facility] Start: 12-12-2023 End: 12-12-2023 ambulatory Washington Arzate Facility:[facility] Start: 12-01-2023 End: 12-01-2023 ambulatory Nanci Gipson Facility:[facility] Start: 11-21-[address] Washington Arzate MD Work Phone: [facility] Start: 10-19-2022 End: 10-19-[address] Darin Sharma Work Phone: [facility] Work Phone: Start: 10-19-2022 End: 10-19-[address] Darin Sharma Work Phone: [facility]-Laboratory, [place] Start: 09-27-2022 End: 09-27-[address] Darin Sharma Work Phone: [facility] Start: 09-21-2022 End: 09-21-[address] Darin Sharma Work Phone: [facility] Work Phone: Start: 09-21-2022 End: 09-21-[address] Darin Sharma Work Phone: [facility] Start: 06-28-2022 End: 06-28-[address] Darin Sharma Work Phone: [facility]-Pulmonary Medicine [facility] Start: 06-21-2022 Non-patient / Non-visit Dr. David Sharma Work Phone: [facility] Start: 06-20-2022 End: 06-20-[address] Darin Sharma Work Phone: [facility] Work Phone: Start: 06-20-2022 End: 06-20-[address] Darin Sharma Work Phone: [facility]-Pulmonary Services/Neurology Start: 05-24-2022 End: 05-24-[address] Darin Sharma Work Phone: [facility]-Pulmonary Medicine [facility] Start: 05-17-2022 End: 05-17-2022 Patient encounter procedure [facility]-Cat Scan, [facility] Start: 05-07-2022 End: 05-07-2022 ambulatory [facility] Work Phone: Start: 05-07-2022 End: 05-07-2022 Patient encounter procedure [facility]-MRI - [facility] Start: 09-15-2021 End: 09-15-[address] Darin Sharma [facility] Start: 09-03-2021 End: 09-03-[address] Darin Sharma Work Phone: [facility] Start: 08-18-2021 End: 08-18-[address] Darin Sharma Work Phone: [facility] Start: 07-26-2021 End: 07-26-[address] [facility] Start: 07-13-2021 End: 07-13-[address] [facility] Start: 07-05-2021 End: 07-05-[address] [facility] Start: 06-22-2021 End: 06-22-[address] [facility] Start: 06-13-2021 End: 06-13-2021 Emergency department patient visit Dr. Darin Sharma Work Phone: [facility]-Emergency Department Start: 06-08-2021 End: 06-08-[address] Darin Sharma Work Phone: [facility] Start: 05-25-2021 End: 05-25-[address] Darin Sharma Work Phone: [facility] Start: 05-21-2021 End: 05-21-[address] Darin Sharma Work Phone: [facility] Start: 05-10-2021 End: 05-10-[address] Darin Sharma Work Phone: [facility]-Medical Surgical 3 Outp Start: 05-08-2021 Non-patient / Non-visit Dr. David Sharma Work Phone: [facility] Start: 05-07-2021 Non-patient / Non-visit Dr. David Sharma Work Phone: [facility] Start: 05-07-2021 Non-patient / Non-visit Dr. David Sharma Work Phone: [facility] Start: 05-06-2021 Non-patient / Non-visit Dr. David Sharma Work Phone: [facility] Start: 05-06-2021 End: 05-08-2021 Evaluation and management of inpatient Dr. Darin Sharma [facility] Start: 05-03-2021 End: 05-03-[address] Darin Sharma Work Phone: [facility] Procedures Date Procedure Procedure Detail Performing Clinician Start: 07-01-2024 Radiologic exam ches t 2 views Chon PONCE Work Phone: Start: 05-07-2024 Radiologic exam ches t 2 views Enzo Boyce [place] Work Phone: Start: 09-21-2022 Radiologic examinati on of knee Dr. Darin [...] DTaP,Tdap,Td Vaccine (2 - Td or Tdap) [facility] Start: 10-18-2025 Screening for malign ant neoplasm of colon [facility] Start: 03-05-2024 Diabetes Screening Diabetes Screenin g [facility] Start: 12-31-2023 Covid-19 Vaccine () Covid-19 Vaccine () [facility] Start: 12-31-2023 Influenza vaccination Influenza Vacc ine (#1) [facility] Start: 2020 Prostate specific antigen measurement Prostate Cancer Screening Discussion [facility] Start: 11-12-2015 Pneumococcal Vaccine : 50+ (1 of 1 - PCV) Pneumococcal Vaccine: 50+ (1 of 1 - PCV) [facility] Start: 11-12-2015 Shingrix Vaccine (1 of 2) Shingrix Vaccine (1 of 2) [facility] Start: 2010 Screening for malign ant neoplasm of colon [facility] Start: 2000 [facility] Start: 1984 Hepatitis B Vaccine (1 of 3 - 19+ 3-dose series) Hepatitis B Vaccine (1 of 3 - 19+ 3-dose series) [facility] Start: 11-12-1983 Anxiety Screening Anxiety Screening [facility] Start: 11-12-1983 Depression Screening Depression Scre ening [facility] Start: 11-12-1983 Hepatitis C screening Hepatitis C Sc reening [facility] Start: 11-12-1983 HIV screening HIV Screening [facility] CBC W Auto Different ial panel - Blood [facility] CBC W Auto Different ial panel - Blood [facility] Comprehensive metabo lic 1999 panel - Serum or Plasma [facility] COVID & INFLUENZA A/ B & RSV PCR, ROUTINE COVID & INFLUENZA A/B & RSV PCR, ROUTINE Microbiology Routine Viral illness Ordered: 05/07/2024 [facility] Work Phone: Comment on above: Ordered: 05/07/2024 CT Chest W contrast IV [facility] Lipid 1995 panel - S desmond or Plasma [facility] Lipid 1995 panel - S desmond or Plasma [facility] Patient Education ED Abdominal P ain Unkn Cause Male... [facility] Work Phone: Patient referral [facility] Work Phone: Testosterone Free [Mass/volume] in Serum or Plasma [facility] Thyroid stimulating hormone measurement [facility] Immunizations Immunization Date Immunization Notes Care Provider Fa chucky 09-27-2022 tetanus toxoid, redu darnell diphtheria toxoid, and acellular pertussis vaccine, adsorbed Dr. Darin Sharma Work Phone: [facility] 09-14-2021 Covid (Moderna) Dr. Darin powell Work Phone: [facility] 03-18-2021 Covid (Flako & Flako) Dr. Darin Sharma Work Phone: [facility] 01-22-2021 Covid (Moderna) Dr. Darin powell Work Phone: [facility] 12-25-2020 Covid (Moderna) Dr. Darin powell Work Phone: [facility] 03-17-2020 influenza, injectabl e, quadrivalent, preservative free Dr. Washington Arzate MD Work Phone: [facility] 03-17-2020 influenza, seasonal, injectable Dr. Darin Sharma Work Phone: [facility] 03-17-2020 influenza virus vaccine, unspecified formulation Enzo Boyce PA-C Work Phone: [facility] Payers Date Payer Category Payer Self-pay [id number] 2023 Self-pay [id number] 2019 Private Health Insurance MMO [employer] PPO [id number] 2019 Unknown MMO MMO [employer] PPO [id number] 2019-Present [phone] [address] [place] [address] PPO [id number] 2015 Unknown [id number] Unknown [id number] Unknown [id number] Unknown [id number] Unknown [id number] Social History Date Type Detail Facility Start: 07-26-2021 End: 09-27-2022 Tobacco smoking status NJIS Unknown if ever smoked [facility] Start: 09-30-2020 None [facility] Start: 09-30-2020 Non-smoker [facility] Start: 1965 Sex Assigned At Male [facility] Start: 05-07-2024 [facility] Start: 05-07-2024 Tobacco use and exposure Smokeless tobacco non-user [facility] Start: 05-07-2024 End: 07-01-2024 Alcoholic beverage intake Not Asked [facility] Start: 05-07-2024 History of Social function [facility] Start: 05-07-2024 Tobacco use panel [facility] Start: 1965 Sex assigned at Not on file [facility] Start: 05-21-2024 [facility] Medical Equipment Procedure Code Equipment Code Equipment Origin al Text Equipment Identifier Dates Discectomy, spine, cervical, anterior approach, with fusion 2 Level Plate 51mm FDA Start: 02-03-2021 Discectomy, spine, cervical, anterior approach, with fusion PATCH,AMNION [id number] FDA Start: 02-03-2021 Discectomy, spine, cervical, anterior approach, with fusion STRIP,BONE CANC [id number] FDA Start: 02-03-2021 Discectomy, spine, cervical, anterior approach, with fusion STRIP,BONE CANC [id number] FDA Start: 02-03-2021 Discectomy, spine, cervical, anterior approach, with fusion STRIP,BONE CANC [id number] FDA Start: 02-03-2021 Discectomy, spine, cervical, anterior approach, with fusion [id number] Variable screw FDA Start: 02-03-2021 Discectomy, spine, cervical, anterior approach, with fusion [id number] Variable screw FDA Start: 02-03-2021 Discectomy, spine, cervical, anterior approach, with fusion [id number] Variable screw FDA Start: 02-03-2021 Discectomy, spine, cervical, anterior approach, with fusion 4.6hnl71uz Variable screw FDA Start: 02-03-2021 Discectomy, spine, cervical, anterior approach, with fusion 4.9gej18qy Variable screw FDA Start: 02-03-2021 Discectomy, spine, cervical, anterior approach, with fusion 4.3uys05vc Variable screw FDA Start: 02-03-2021 Discectomy, spine, cervical, anterior approach, with fusion Corelink 16.2lom42yj -7 8mm FDA Start: 02-03-2021 Discectomy, spine, cervical, anterior approach, with fusion Corelink 16.7kdb58ylu3 9mm FDA Start: 02-03-2021 Discectomy, spine, cervical, anterior approach, with fusion 2 Level Plate 51mm FDA Start: 02-03-2021 Discectomy, spine, cervical, anterior approach, with fusion PATCH,AMNION 4x4CM FDA Start: 02-03-2021 Discectomy, spine, cervical, anterior approach, with fusion STRIP,BONE CANC [id number] FDA Start: 02-03-2021 Discectomy, spine, cervical, anterior approach, with fusion STRIP,BONE CANC [id number] FDA Start: 02-03-2021 Discectomy, spine, cervical, anterior approach, with fusion STRIP,BONE CANC [id number] FDA Start: 02-03-2021 Discectomy, spine, cervical, anterior approach, with fusion 4.0kmt73is Variable screw FDA Start: 02-03-2021 Discectomy, spine, cervical, anterior approach, with fusion 4.4jee12vz Variable screw FDA Start: 02-03-2021 Discectomy, spine, cervical, anterior approach, with fusion 4.2dhc99km Variable screw FDA Start: 02-03-2021 Discectomy, spine, cervical, anterior approach, with fusion 4.8rpk85pf Variable screw FDA Start: 02-03-2021 Discectomy, spine, cervical, anterior approach, with fusion 4.3goq76xj Variable screw FDA Start: 02-03-2021 Discectomy, spine, cervical, anterior approach, with fusion 4.5snc04qu Variable screw FDA Start: 02-03-2021 Discectomy, spine, cervical, anterior approach, with fusion Corelink 16.0qww07zv -7 8mm FDA Start: 02-03-2021 Discectomy, spine, cervical, anterior approach, with fusion Corelink 16.8fhc96skn6 9mm FDA Start: 02-03-2021 Discectomy, spine, cervical, anterior approach, with fusion 2 Level Plate 51mm FDA Start: 02-03-2021 Discectomy, spine, cervical, anterior approach, with fusion PATCH,AMNION 4x4CM FDA Start: 02-03-2021 Discectomy, spine, cervical, anterior approach, with fusion STRIP,BONE CANC [id number] FDA Start: 02-03-2021 Discectomy, spine, cervical, anterior approach, with fusion STRIP,BONE CANC [id number] FDA Start: 02-03-2021 Discectomy, spine, cervical, anterior approach, with fusion STRIP,BONE CANC [id number] FDA Start: 02-03-2021 Discectomy, spine, cervical, anterior approach, with fusion 4.2yot94nm Variable screw FDA Start: 02-03-2021 Discectomy, spine, cervical, anterior approach, with fusion 4.7ocp33vl Variable screw FDA Start: 02-03-2021 Discectomy, spine, cervical, anterior approach, with fusion 4.3rgj19mn Variable screw FDA Start: 02-03-2021 Discectomy, spine, cervical, anterior approach, with fusion 4.5gnr32hl Variable screw FDA Start: 02-03-2021 Discectomy, spine, cervical, anterior approach, with fusion 4.9scl78kr Variable screw FDA Start: 02-03-2021 Discectomy, spine, cervical, anterior approach, with fusion 4.7rnj63wm Variable screw FDA Start: 02-03-2021 Discectomy, spine, cervical, anterior approach, with fusion Corelink 16.0uzi79fs -7 8mm FDA Start: 02-03-2021 Discectomy, spine, cervical, anterior approach, with fusion Corelink 16.8wjl13mxe2 9mm FDA Start: 02-03-2021 Discectomy, spine, cervical, anterior approach, with fusion 2 Level Plate 51mm FDA Start: 02-03-2021 Discectomy, spine, cervical, anterior approach, with fusion PATCH,AMNION 4x4CM FDA Start: 02-03-2021 Discectomy, spine, cervical, anterior approach, with fusion STRIP,BONE CANC [id number] FDA Start: 02-03-2021 Discectomy, spine, cervical, anterior approach, with fusion STRIP,BONE CANC 01x30t4RQ FDA Start: 02-03-2021 Discectomy, spine, cervical, anterior approach, with fusion STRIP,BONE CANC [id number] FDA Start: 02-03-2021 Discectomy, spine, cervical, anterior approach, with fusion 4.4vkx29ct Variable screw FDA Start: 02-03-2021 Discectomy, spine, cervical, anterior approach, with fusion 4.9cnd19ao Variable screw FDA Start: 02-03-2021 Discectomy, spine, cervical, anterior approach, with fusion 4.1ysv82gw Variable screw FDA Start: 02-03-2021 Discectomy, spine, cervical, anterior approach, with fusion 4.6yhb86pn Variable screw FDA Start: 02-03-2021 Discectomy, spine, cervical, anterior approach, with fusion 4.4nkp10ds Variable screw FDA Start: 02-03-2021 Discectomy, spine, cervical, anterior approach, with fusion 4.9jfx60cm Variable screw FDA Start: 02-03-2021 Discectomy, spine, cervical, anterior approach, with fusion Corelink 16.8vqz15pf -7 8mm FDA Start: 02-03-2021 Discectomy, spine, cervical, anterior approach, with fusion Corelink 16.5ndk14pjk7 9mm FDA Start: 02-03-2021 Discectomy, spine, cervical, anterior approach, with fusion 2 Level Plate 51mm FDA Start: 02-03-2021 Discectomy, spine, cervical, anterior approach, with fusion PATCH,AMNION 4x4CM FDA Start: 02-03-2021 Discectomy, spine, cervical, anterior approach, with fusion STRIP,BONE CANC [id number] FDA Start: 02-03-2021 Discectomy, spine, cervical, anterior approach, with fusion STRIP,BONE CANC [id number] FDA Start: 02-03-2021 Discectomy, spine, cervical, anterior approach, with fusion STRIP,BONE CANC [id number] FDA Start: 02-03-2021 Discectomy, spine, cervical, anterior approach, with fusion 4.7uve54sl Variable screw FDA Start: 02-03-2021 Discectomy, spine, cervical, anterior approach, with fusion 4.7roc06cj Variable screw FDA Start: 02-03-2021 Discectomy, spine, cervical, anterior approach, with fusion 4.0ogw55hx Variable screw FDA Start: 02-03-2021 Discectomy, spine, cervical, anterior approach, with fusion 4.9don67hj Variable screw FDA Start: 02-03-2021 Discectomy, spine, cervical, anterior approach, with fusion 4.3obf94qd Variable screw FDA Start: 02-03-2021 Discectomy, spine, cervical, anterior approach, with fusion 4.0lqx60gd Variable screw FDA Start: 02-03-2021 Discectomy, spine, cervical, anterior approach, with fusion Corelink 16.6lmz77jk -7 8mm FDA Start: 02-03-2021 Discectomy, spine, cervical, anterior approach, with fusion Corelink 16.3tzg62jwi5 9mm FDA Start: 02-03-2021 Discectomy, spine, cervical, anterior approach, with fusion 2 Level Plate 51mm FDA Start: 02-03-2021 Discectomy, spine, cervical, anterior approach, with fusion PATCH,AMNION 4x4CM FDA Start: 02-03-2021 Discectomy, spine, cervical, anterior approach, with fusion STRIP,BONE CANC [id number] FDA Start: 02-03-2021 Discectomy, spine, cervical, anterior approach, with fusion STRIP,BONE CANC [id number] FDA Start: 02-03-2021 Discectomy, spine, cervical, anterior approach, with fusion STRIP,BONE CANC [id number] FDA Start: 02-03-2021 Discectomy, spine, cervical, anterior approach, with fusion 4.7mxy02tw Variable screw FDA Start: 02-03-2021 Discectomy, spine, cervical, anterior approach, with fusion 4.2bem86ks Variable screw FDA Start: 02-03-2021 Discectomy, spine, cervical, anterior approach, with fusion 4.2yjj18xn Variable screw FDA Start: 02-03-2021 Discectomy, spine, cervical, anterior approach, with fusion 4.5pnr72hr Variable screw FDA Start: 02-03-2021 Discectomy, spine, cervical, anterior approach, with fusion 4.1eoj08pd Variable screw FDA Start: 02-03-2021 Discectomy, spine, cervical, anterior approach, with fusion 4.6hvg84oc Variable screw FDA Start: 02-03-2021 Discectomy, spine, cervical, anterior approach, with fusion Corelink 16.0jlr82rn -7 8mm FDA Start: 02-03-2021 Discectomy, spine, cervical, anterior approach, with fusion Corelink 16.4jef29jol1 9mm FDA Start: 02-03-2021 Discectomy, spine, cervical, anterior approach, with fusion 2 Level Plate 51mm FDA Start: 02-03-2021 Discectomy, spine, cervical, anterior approach, with fusion PATCH,AMNION 4x4CM FDA Start: 02-03-2021 Discectomy, spine, cervical, anterior approach, with fusion STRIP,BONE CANC [id number] FDA Start: 02-03-2021 Discectomy, spine, cervical, anterior approach, with fusion STRIP,BONE CANC [id number] FDA Start: 02-03-2021 Discectomy, spine, cervical, anterior approach, with fusion STRIP,BONE CANC [id number] FDA Start: 02-03-2021 Discectomy, spine, cervical, anterior approach, with fusion 4.2tcw33ta Variable screw FDA Start: 02-03-2021 Discectomy, spine, cervical, anterior approach, with fusion 4.6qvn49we Variable screw FDA Start: 02-03-2021 Discectomy, spine, cervical, anterior approach, with fusion 4.1swg81zl Variable screw FDA Start: 02-03-2021 Discectomy, spine, cervical, anterior approach, with fusion 4.5icv65bk Variable screw FDA Start: 02-03-2021 Discectomy, spine, cervical, anterior approach, with fusion 4.7pnt74nf Variable screw FDA Start: 02-03-2021 Discectomy, spine, cervical, anterior approach, with fusion 4.4oud13us Variable screw FDA Start: 02-03-2021 Discectomy, spine, cervical, anterior approach, with fusion Corelink 16.2sfp70ov -7 8mm FDA Start: 02-03-2021 Discectomy, spine, cervical, anterior approach, with fusion Corelink 16.8ihe81zcb2 9mm FDA Start: 02-03-2021 Goals Date Patient Goal Desired Activity /State Functional Status Date Assessment Result Facility 05-08-2021 Functional status Ambulates;Gibson r;Bathroom Privilege [facility] Work Phone: Mental Status Date Assessment Result Facility 05-10-2021 Cognitive function Awake;Alert;A ppropriate;Fol lows Commands [facility] Work Phone: 05-08-2021 Cognitive function Voice/Name [facility] Work Phone: Clinical Notes 06-21-2022 to 10-29-2024 Note Date & Type Note Facility 10-29-2024 Evaluation note Diagnosis Onset Date Resolution Asthma acute November 21 10:54am Left lumbar radiculitis acute [facility] 2024 10:54am Obstructive sleep apnea acute [facility] 2024 10:54am Fatty liver noneactive November 21 10:54am Mixed hyperlipidemia noneactive November 21, 2024 10:54am Essential hypertension noneactive [facility] 2024 10:54am Anxiety and depression noneactive [facility] 2024 10:54am Bilateral knee pain noneactive November 21, 2024 10:54am [facility] Work Phone: [phone] History of Present illness Narrative* Teddy Carmona, [...] PATIENT PRESENTS WITH AN IMPLANTABLE OR ATTACHED SHIPPING/RECEIVING CLERK: No RADIOLOGY DEPARTMENT: General X-ray: Exam(s) Completed: Chest X-Ray PERIPHERAL IV DATA: Not applicable SIGNED BY: RT Arsalan(R) July 01, 2024 11:29 AM documented [facility]25 NoteHNO ID: [id number] Author: TEDDY CARMONA RT(R) Service: ? Author Type: [employer] Reverser Type: Progress Notes Filed: 07/01/2024 11:29 Note [...] PATIENT PRESENTS WITH AN IMPLANTABLE OR ATTACHED SHIPPING/RECEIVING CLERK: No RADIOLOGY DEPARTMENT: General X-ray: Exam(s) Completed: Chest X-Ray PERIPHERAL IV DATA: Not applicable SIGNED BY: RT Arsalan(R) July 01, 2024 11:29 [facility]03-03-2025 NoteHNO ID: [id number] Author: CHON PEOPLES PA Service: ? Author Type: Physician Custom Bookbinder Type: Progress Notes Filed: 07/01/2024 11:45 Note Text: This note was created using NoteWriter. Subjective Saleem Hobbs is a 58 year [...] discussed in detail warranting prompt ER evaluation. Chon Peoples, [facility]03-03-2025 History of Present illness Narrative* Chon Peoples, [place] - 07/01/2024 11:23 AM EST This note was created using NoteWriter. Subjective Saleem Hobbs is a 58 year [...] ER evaluation. ROSARIO Hauser documented in [facility] History of Present illness Narrative* Lulu Espinosa RT(Tyrel) - 05/07/2024 9:50 AM EST Radiology Service [...] PATIENT PRESENTS WITH AN IMPLANTABLE OR ATTACHED SHIPPING/RECEIVING CLERK: No RADIOLOGY DEPARTMENT: General X-ray: Exam(s) Completed: Chest X-Ray PERIPHERAL IV DATA: Not applicable SIGNED BY: RT Shai(Tyrel) May 07, 2024 9:57 AM documented in this encounterS[facility]01-07-2025 NoteHNO ID: [id number] Author: LULU ESPINOSA RT(R) Service: Radiology Author Type: Technologist Type: Progress [...] PATIENT PRESENTS WITH AN IMPLANTABLE OR ATTACHED SHIPPING/RECEIVING CLERK: No RADIOLOGY DEPARTMENT: General X-ray: Exam(s) Completed: Chest X-Ray PERIPHERAL IV DATA: Not applicable SIGNED BY: RT Shai(R) May 07, 2024 9:57 [facility]01-07-2025 NoteHNO ID: [id number] Author: ENZO BOYCE PA-C Service: ? Author Type: Physician Custom Bookbinder Type: Progress Notes Filed: 05/07/2024 10:19 Note Text: This note was created using [employer] Dat[employer]. Subjective Saleem Hobbs is a 58 year old male. Patient is a 58-year-old male complains of fever, chills, myalgia and cough that he has been experiencing for the past 5 days. Patient reports no congestion, sinus pressure or sore throat, although he does report ear pressure. Patient and his recently returned from [facility] via airline. Patient states that [...] travel - ICD9: V49.89, ICD10: Z78.[address]01-07-2025 History of Present illness Narrative* Enzo Boyce PA-C - 05/07/2024 9:37 AM EST This note was created using NoteWriter. Subjective Saleem Hobbs is a 58 year old male. Patient is a 58-year-old male complains of fever, chills, myalgia and cough that he has been experiencing for the past 5 days. Patient reports no congestion, sinus pressure or sore throat, although he does report ear pressure. Patient and his recently returned from [facility] via airline.Patient states that he [...] Z78.9 Enzo Boyce PA-C documented in this encounterS[facility] Onset Date Resolution Status Segmental [...] region acute Scoliosis of lumbar spine ch [facility] Work Phone: Evaluation note* Diagnosis Onset [...] ronic S/P cervical spinal fusion a cute [facility] Work Phone: Evaluation noteNo assessment information available [facility] Work Phone: evaluation note* Diagnosis Onset Date Resolution Status Abnormal chest CT acute Abnormal chest CT acute Asthma acute [facility] Work Phone: Evaluation note* Diagnosis Onset Date Resolution Status Abnormal chest CT acute Asthma acute Asthma acute Left lumbar radiculitis acut e Obstructive sleep apnea acut e Screening for colon cancer n oneactive Immunization due noneactive Establishing care with new doctor, encounter for noneactive Mixed hyperlipidemia noneact steffany Essential hypertension nonea ctive Anxiety and depression nonea ctive Bilateral knee pain noneacti ve [facility] Work Phone: Evaluation note* Diagnosis Viral illness- Primary Unspecified viral infection, in conditions classified elsewhere and of unspecified site Recent foreign travel [facility] Diagnosis Acute cough- Primary Acute cough documented in this encounter [facility] note* Diagnosis Acute cough documented in this encounter 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 Reason for [...] November 21, 2024 10:5 4am Family History No Family History Records Found Relationship Condition Age at Onset Recorded Date/T [...] cholesterol Unknown mother Osteoporosis Unknown Advance Directives No Advanced Directives Records Found Advance Directive Response Recorded Date/ Time Name of Medical Power of Data Keyer terrance hobbs May 06, 2021 6:47pm Advance Directives No December 2:56am Living Will Yes June 13 12:51pm Power of Data Keyer Yes June 13, 2021 12:51pm Advance Directive Response Recorded Date/ Time Advance Directives No December 2:56am Living Will Yes June 13, 022 12:51pm Power of Data Keyer Yes June 13, 2021 12:51pm Advance Directive Response Recorded Date/ Time Advance Directives No December 1:56am Living Will Yes June 13, 022 11:51am Power of Data Keyer Yes June 13, 2021 11:51am Advance Directive [...] Primary Care Provider Active Deborah Gillespie NP, SKIN GRADER-C Attending Provider, Referring Pr ovider Active Team [...] Inactive Member Role Status Dates Guerda Stanley SKIN GRADER-C Attending Provider, Referring Pro vider Active Dr. Washington Arzate MD Primary Care Provider Active Team Status: Inactive Member Role Status Dates Dr. Washington Arzate MD Primary Care Pro vider, Attending Provider, Referring Provider Active Ip Counsel Relationship Specialty Start Date End Date Washington Arzate MD [address] [place] [address] PCP - General Internal Medicine 05/07/24 Ip Counsel Relationship Specialty Start Date End Date Washington Arzate MD [address] [place] [address] PCP - General Internal Medicine 05/07/24 Ip Counsel Relationship Specialty Start Date End Date Washington Arzate MD [address] [place] [address] PCP - General Internal Medicine 05/07/24 Ip Counsel Relationship Specialty Start Date End Date Washington Arzate MD [address] [place] [address] PCP - General Internal Medicine 05/07/24 Team [...] or prosecute any alcohol or drug abuse patient.[facility] HospitalIn the event this information is protected by the Federal Confidentiality of Alcohol and Drug Abuse Patient Records regulations: The Federal rules restrict any use of the information to criminally investigate or prosecute any alcohol or drug abuse patient.[facility] HospitalIn the event this information is protected by the Federal Confidentiality of Alcohol and Drug Abuse Patient Records regulations: The Federal rules restrict any use of the information to criminally investigate or prosecute any alcohol or drug abuse patient.[facility] HospitalIn the event this information is protected by the Federal Confidentiality of Alcohol and Drug Abuse Patient Records regulations: The Federal rules restrict any use of the information to criminally investigate or prosecute any alcohol or drug abuse patient.[facility] Reason for Visit (unrecogniz ed section and content) Reason Comments Cough Cough, ST, chills an d BRAY x 5 days Reason Comments Cough Cough, chest congest ion, fatigue and fever x 1 week (unrecognized sect ion and content) No Status Records FoundNo Status Records Found INFORMATION SOURCE (unrecogn ized section and content) DATE CREATED AUTHOR 07/02/2024 [facility] DATE CREATED AUTHOR AUTHOR'S YONY FERNANDES 11/28/2024 [facility] FOR RECORDS PERTAINING TO PATIENTS [...] BE BASED ON THE PRIMARY CLINICAL RECORDS. [employer] provides no warranty or guarantee of the accuracy or completeness of information in this document.
== END | disposition home or self-care (01) ==
LOC: MTLAB 10:01
PROVIDERS: PCP Internal Medicine; Referring Provider Internal Medicine; Visit Provider Internal Medicine
DX: E29.1 Testicular hypofunction (principal)
CPT/HCPCS: 36415; 84402